=== PATIENT | male | born 1960 | race Caucasian/White ===

== ENCOUNTER → 2019-11-23 15:23 | Outpatient (BNVA) | payer MEDICARE, SELFPAY | PROVIDERS: Family Provider Family Medicine; Visit Provider Family Medicine | DX: R53.83 Other fatigue (principal); M10.9 Gout, unspecified; J01.00 Acute maxillary sinusitis, unspecified | CPT/HCPCS: 80053; 82607; 84403; 84443; 85025 ==

== ENCOUNTER → 2020-04-04 15:42 | Outpatient (BNVA) | payer MEDICARE, SELFPAY | PROVIDERS: Family Provider Family Medicine; Visit Provider Nurse Practitioner Family | DX: Z11.59 Encounter for screening for other viral diseases (principal); Z20.828 Contact with and (suspected) exposure to other viral communicable diseases; J06.9 Acute upper respiratory infection, unspecified | CPT/HCPCS: 87635 ==

== ENCOUNTER → 2020-07-09 09:35 | Outpatient (BNVA) | payer MEDICARE, SELFPAY | PROVIDERS: Family Provider Family Medicine; Visit Provider Nurse Practitioner Family | DX: Z13.6 Encounter for screening for cardiovascular disorders (principal); M10.9 Gout, unspecified; M79.671 Pain in right foot; M79.672 Pain in left foot | CPT/HCPCS: 80053; 80061; 84550; 85025; 85651; 86038; 86140; 86431 ==

== ENCOUNTER → 2020-09-07 10:09 | Outpatient (BNVA) | payer MEDICARE, SELFPAY | PROVIDERS: Family Provider Family Medicine; Visit Provider Surgery | DX: D17.0 Benign lipomatous neoplasm of skin and subcutaneous tissue of head, face and neck (principal); L98.9 Disorder of the skin and subcutaneous tissue, unspecified | CPT/HCPCS: 88304 ==

== ENCOUNTER → 2021-08-20 09:42 | Outpatient (BNVA) | payer MEDICARE, SELFPAY | PROVIDERS: Family Provider Family Medicine; PCP Family Medicine; Visit Provider Nurse Practitioner Family | DX: J20.9 Acute bronchitis, unspecified (principal) | CPT/HCPCS: 71046; 80053 ==

== ENCOUNTER → 2021-09-09 09:11 | Outpatient (BNVA) | payer MEDICARE, SELFPAY | PROVIDERS: Family Provider Family Medicine; PCP Family Medicine; Visit Provider Nurse Practitioner Family | DX: R05.9 Cough, unspecified (principal); R06.00 Dyspnea, unspecified | CPT/HCPCS: 71046 ==

== ENCOUNTER 2021-09-10 16:21 | Emergency (ER) | payer MEDICARE, SELFPAY ==
[2021-09-10 16:31] VITALS: BP 148/86; PULSE 119; RESP 18; TEMP 36.8; O2SAT 95; BMI 40.6
--- NOTE | 2021-09-10 16:42 | W.ED.SOB ---
Documented by User: Feroz Whitfield DO 09/11/21 05:11 HPI - SOB/Dyspnea General: Chief Complaint: Shortness of Breath/Dyspnea Stated Complaint: SOB, cough Time Seen by Provider: 09/10/21 16:37 Source: patient Mode of arrival: ambulatory Limitations: no limitations History of Present Illness: HPI Narrative: 61-year-old male presents emergency room with complaints of shortness of breath and cough have been going on for several weeks has been tried on various antibiotics and steroids including yesterday he was seen and given Rocephin and discharged with Levaquin. He has been complaining of a chronic cough and shortness of breath for several weeks is not really had any relief from any of these things. He is not having any chest pain at this time. Cough is moderately productive. No hemoptysis. No myalgias no diarrhea. MD elicited complaint: shortness of breath and cough Pertinent past history: COPD Onset (ago): week(s) Timing: constant Severity: mild Exacerbating factors: nothing Relieving factors: nothing Associated symptoms: Reports chest congestion and cough; Deny abdominal pain, chest pain, diaphoresis, dizziness, extremity pain, fever(s), hemoptysis, lightheadedness, myalgias, nausea, orthopnea, palpitations, paresthesias, polydipsia, polyuria, rash, sense of impending doom, syncope or vomiting Treatment prior to arrival: bronchodilator and other (Steroids and antibiotics) Review of Systems Const: Denies: fever(s) or diaphoresis ENMT: Denies: throat pain, ear or mastoid pain, nasal discharge or nasal congestion Card: Denies: chest pain, palpitations, lightheadedness, syncope or orthopnea Resp: Reports: chest congestion; Denies: hemoptysis GI: Denies: abdominal pain, nausea or vomiting : Denies: flank pain, dysuria, urinary frequency or urinary urgency Musc: Denies: extremity pain Skin/Breast: Denies: rash or pruritus Neuro: Denies: dizziness Endo: Denies: polyuria or polydipsia PFSH ED PFSH: Medical History Gout Surgical History History of angioplasty History of colonoscopy History of esophagogastroduodenoscopy (EGD) Family History Other CAD (coronary artery disease) Hyperlipidemia Hypertension Stroke Social History Smoking and tobacco status: never smoked Second hand smoke exposure: No Alcohol intake: unknown Adopted: No Lives independently: Yes Household members: spouse Housing: House Marital status: Number of children: 2 Number of grandchildren: 9 Highest education level completed: High School Graduate service: No Current occupational status: retired Pets and animals: Yes History of recent travel: No Current gender identity: Male Physical Exam Const: COMMON NORMALS: no acute distress GENERAL APPEARANCE: cooperative and comfortable ORIENTATION/CONSCIOUSNESS: Yes awake, Yes oriented to person, Yes oriented to place and Yes oriented to time HENMT: COMMON NORMALS: normocephalic, atraumatic and hearing grossly normal bilaterally HEAD & SCALP: normocephalic and atraumatic Neck/C-Spine: COMMON NORMALS: no JVD Resp: COMMON NORMALS: normal respiratory effort, No retractions, No use of accessory muscles and clear to auscultation bilaterally AUSCULTATION: clear to auscultation bilaterally Cardio: COMMON NORMALS: no JVD, regular rate, regular rhythm and No murmurs present (Cardio) RATE: regular rate RHYTHM: regular rhythm GI: COMMON NORMALS: Soft to palpation and No hepatosplenomegaly present AUSCULTATION: Yes normoactive bowel sounds PALPATION: Yes Soft to palpation, No Tenderness to palpation present (GI), No Guarding due to palpation present (GI) and Yes No hepatosplenomegaly present Extremity: COMMON NORMALS: normal to inspection, capillary refill normal, no clubbing, cyanosis or edema, no calf tenderness and no pedal edema Neuro: SENSORIUM/ORIENTATION: Yes oriented to person, Yes oriented to place and Yes oriented to time Skin: COMMON NORMALS: no rashes or lesions noted GENERAL SKIN EXAM: no rashes or lesions noted Course Vital Signs: Vital signs: Vital Signs Temperature 98.2 F 09/10/21 16:31 Pulse Rate 102 H 09/10/21 18:50 Respiratory Rate 20 H 09/10/21 18:50 Blood Pressure 145/93 09/10/21 18:50 Pulse Oximetry 94 09/10/21 18:50 MDM - SOB/Dyspnea Medical Decision Making Care signed out to Dr. Barron at change of shift. See final notes for diagnosis and disposition. Medical Records I reviewed the patient's medical records. Lab Data I reviewed the patient's lab results. : 09/10/21 17:05 09/10/21 17:35 Labs/Radiology: Radiology Impressions Chest CTA 09/10/21 16:48 IMPRESSION: 1. No large central pulmonary embolism is seen within the main pulmonary arteries and lobar branches. Evaluation beyond this point is limited due to poor opacification of the pulmonary arterial system. No acute findings. 2. Multiple thyroid nodules measuring up to 3.9 cm in size. Consider nonemergent thyroid ultrasound if not previously performed. COMMENTS: Consistent with the [employer]'s Incidental Findings Committee white paper (J Am Stacie Radiol 2015): In patients aged 35 years and older with an incidental thyroid nodule equal to or greater than 1.[address], MRI or extrathyroidal US, further evaluation with dedicated thyroid US is recommended for patients with normal life expectancy and without comorbidities. For smaller nodules without suspicious features, no further evaluation or follow up is recommended. Chest X-Ray 09/10/21 16:48 IMPRESSION: No acute chest abnormality. Laboratory Results WBC 15.2 10^3/uL (4.0-10.0) H 09/10/21 17:05 RBC 5.26 10^6/uL (4.1-5.3) 09/10/21 17:05 Hgb 14.3 g/dL (11.7-16.6) 09/10/21 17:05 Hct 45.4 % (42.0-52.0) 09/10/21 17:05 MCV 86.3 fl (80-94) 09/10/21 17:05 MCH 27.2 pg (28.0-34.0) L 09/10/21 17:05 MCHC 31.5 g/dL (30.0-36.0) 09/10/21 17:05 RDW 15.3 % (12.1-15.1) H 09/10/21 17:05 Plt Count 206 10^3/cmm (130-400) 09/10/21 17:05 MPV 10.0 fL (7.4-10.4) 09/10/21 17:05 Neut % (Auto) 84.2 % 09/10/21 17:05 Lymph % (Auto) 9.2 % 09/10/21 17:05 [place] % (Auto) 5.3 % 09/10/21 17:05 Eos % (Auto) 0.4 % 09/10/21 17:05 Baso % (Auto) 0.3 % 09/10/21 17:05 Neut # (Auto) 12.77 10^3/uL (1.8-7.7) H 09/10/21 17:05 Lymph # (Auto) 1.4 10^3/uL (0.8-4.8) 09/10/21 17:05 [place] # (Auto) 0.8 10^3/uL (0.2-0.9) 09/10/21 17:05 Eos # (Auto) 0.1 10^3/uL (0.0-0.8) 09/10/21 17:05 Baso # (Auto) 0.0 10^3/uL (0.0-0.1) 09/10/21 17:05 Nucleated RBC % (auto) 0 % 09/10/21 17:05 Nucleated RBCs # 0.0 /100WBC 09/10/21 17:05 Specimen Type Arterial 09/10/21 17:04 Sample Site Radial, left 09/10/21 17:04 ABG pH 7.43 (7.35-7.45) 09/10/21 17:04 ABG pCO2 39.5 mmHg (35-45) 09/10/21 17:04 ABG pO2 77.0 mmHg (80.0-100.0) L 09/10/21 17:04 ABG HCO3 26.3 mmol/L (22-26) H 09/10/21 17:04 ABG O2 Saturation 96.6 09/10/21 17:04 ABG Base Excess 1.9 mmol/L (-2.0-2.0) 09/10/21 17:04 Myron Test Pos 09/10/21 17:04 A-a O2 Gradient 3.1 mmHg (5-10) L 09/10/21 17:04 Hematocrit 44.5 % (42-52) 09/10/21 17:04 Hgb O2 Saturation 95.0 % (95-100) 09/10/21 17:04 Carboxyhemoglobin 0.8 %THgb (0.4-20.1) 09/10/21 17:04 Methemoglobin 0.9 % (0.4-1.5) 09/10/21 17:04 Total Hemoglobin 14.5 g/dL (14-18) 09/10/21 17:04 Sodium 141.0 mmol/L (131-143) 09/10/21 17:04 Potassium 4.2 mmol/L (3.5-5.0) 09/10/21 17:04 Glucose 200.0 mg/dL (70-115) H 09/10/21 17:04 Ionized Calcium 1.2 mmol/L (1.1-1.4) 09/10/21 17:04 O2 Delivery Device Room air 09/10/21 17:04 FiO2 21.0 % 09/10/21 17:04 Store Loss Prevention Manager ID Cak 09/10/21 17:04 Sodium 137 mmol/L (136-145) 09/10/21 17:35 Potassium 4.4 mmol/L (3.5-5.1) 09/10/21 17:35 Chloride 102 mmol/L (98-107) 09/10/21 17:35 Carbon Dioxide 21 mmol/L (22-29) L 09/10/21 17:35 Anion Gap 18.4 (5-19) 09/10/21 17:35 BUN 16 mg/dL (8-23) 09/10/21 17:35 Creatinine 0.8 mg/dL (0.7-1.2) 09/10/21 17:35 GFR Calculation 98.0 mL/min (90-130) 09/10/21 17:35 Glucose 193 mg/dL (65-115) H 09/10/21 17:35 Calculated Osmolality 290 mOsm/kg (285-295) 09/10/21 17:35 Calcium 9.5 mg/dL (8.5-10.5) 09/10/21 17:35 Total Bilirubin 0.2 mg/dL (0.15-1.2) 09/10/21 17:35 AST 12 U/L (0-40) 09/10/21 17:35 ALT 21 U/L (0-41) 09/10/21 17:35 Alkaline Phosphatase 84 IU/L (40-130) 09/10/21 17:35 Troponin T Baseline 8 ng/L (0-15) 09/10/21 17:35 Total Protein 7.3 g/dL (6.6-8.7) 09/10/21 17:35 Albumin 3.8 g/dL (3.5-5.2) 09/10/21 17:35 Globulin 3.5 g/dL (1.3-4.6) 09/10/21 17:35 Discharge Plan Discharge Patient Disposition: Home Clinical Impression: Shortness of breath, Cough syncope, Multiple thyroid nodules Condition: Stable Prescriptions: No Action albuterol sulfate [ProAir HFA] 90 mcg/actuation HFA aerosol inhaler 2 puff inhalation QID PRN (Reason: shortness of breath or wheezing) Qty: 8.5 6RF Trelegy Ellipta 200-62.5-25 mcg blister with device 1 inh inhalation DAILY Qty: 60 0RF fexofenadine-pseudoephedrine [Denisha-D 12 Hour] 60-120 mg tablet extended release 12 hr 1 tab PO Q12H PRN (Reason: allergy symptoms) Qty: 20 0RF penicillin V potassium 500 mg tablet 500 mg PO TID 10 Days Qty: 30 0RF Mucinex Fast-Max DM Max 5-100 mg/5 mL liquid 10 ml PO Q6H PRN (Reason: cough) Qty: 200 1RF tadalafil [Cialis] 5 mg tablet 5 mg PO DAILY Qty: 30 4RF levofloxacin 500 mg tablet 500 mg PO DAILY 10 Days Qty: 10 0RF albuterol sulfate 2.5 mg /3 mL (0.083 %) solution for nebulization 2.5 mg inhalation Q4H PRN (Reason: shortness of breath or wheezing) Qty: 180 0RF cyclobenzaprine 10 mg tablet 10 mg PO DAILY PRN (Reason: Pain) 0RF Vitamin D2 10 mcg (400 unit) Tablet 10 mcg PO DAILY 0RF Aspir-81 81 mg Tablet,Delayed Release (Dr/Ec) 81 mg PO DAILY 0RF meclizine 25 mg tablet 25 mg PO TID 0RF cefdinir 300 mg capsule 300 mg PO BID 0RF Tart Nuno 58-102-86-75-20 mg Capsule 1 cap PO DAILY 0RF Discharge Orders: Discharge ED (Routine); Ordered 09/10/21 Ordered By: Sameer Barron Referrals: Evelyne Baum MD [Family Provider] - Pat Nicolas MD [Primary Care Provider] - Discharge Diet: Usual diet Discharge Activity: Resume usual activity Patient Instructions: COPD (Chronic Obstructive Pulmonary Disease) (ED), Thyroid Nodules (ED), Shortness of Breath (ED) Activity Restrictions/Additional Instructions: Thank you for visiting the emergency department. You were seen and evaluated for shortness of breath and cough. The exact cause of your symptoms is unclear, likely related to underlying lung disease. Please continue your steroids and previously prescribed antibiotics as well as inhaled therapies. I will message case management for assistance in scheduling with pulmonology. Incidentally you were noted to have Multiple thyroid nodules measuring up to 3.9 cm in size. Consider nonemergent thyroid ultrasound if not previously performed. This can be arranged by your primary care provider. Please follow-up with your primary care provider. Please return to the emergency department for worsening symptoms, oxygen saturation less than 90%, or anything else that you are concerned about and feel needs emergency department evaluation. Sign Out Sign Out Data: Patient Sign Out occurred on 09/10/21 at 18:37. Patient's care was discussed, and care was transferred from to Sameer Barron MD. Post-Handoff Eval: Patient care handoff received from the Dr. Whitfield pending completion of ED evaluation. Labs notable for leukocytosis, somewhat difficult to interpret in the context of steroid use. Mildly decreased PO2 on ABG. Metabolic panel without acute derangement to explain patient's symptoms. Troponin is negative with greater than 6 hours of symptoms. CTA with somewhat limited exam however no large or lobar PE. Incidental thyroid nodules discussed. Results of ED evaluation were discussed with the patient. He feels improved. Plan to continue with previously prescribed antibiotics and steroid regimen. Patient happy with plan to refer for pulmonology evaluation. Patient comfortable with discharge and discharged in satisfactory condition. Sameer Barron MD Emergency Medicine Coding Level of Care Code ED Operations Vice President for Chg Fwd Exam Comprehensive
--- NOTE | 2021-09-10 16:48 | XR_ITS ---
WS: [id number] XR chest 1V portable [id number] REASON FOR EXAM: dyspnea/cough FINDINGS: The heart and mediastinum are within normal limits. No active pulmonary parenchymal or pleural disease is identified. Bony thorax demonstrates multiple old healed left rib fractures with no other significant abnormality . XR/XR chest 1V portable [id number] IMPRESSION: No acute chest abnormality.
--- NOTE | 2021-09-10 16:48 | CTR_ITS ---
PROCEDURE INFORMATION: Exam: CTA Chest With Contrast Exam date and time: 09/10/2021 4:48 PM Age: 61 years old Clinical indication: Patient HX: Tachycardia and dyspnea; Additional info: Tachycardia dyspnea TECHNIQUE: Imaging protocol: Computed tomographic angiography of the chest with contrast. 3D rendering (Not supervised by radiologist): MIP and/or 3D reconstructed images were created by the technologist. Radiation optimization: All CT scans at this facility use at least one of these dose optimization techniques: automated exposure control; mA and/or kV adjustment per patient size (includes targeted exams where dose is matched to clinical indication); or iterative reconstruction. Contrast material: OMNI 350; Contrast volume: 95 ml; Contrast route: INTRAVENOUS (IV); COMPARISON: CT chest w con* [id number] 02/05/2015 10:44 AM RADIATION DOSE METRICS: Total DLP (mGy-cm): 605.77 FINDINGS: Pulmonary arteries: Poor opacification of the pulmonary arterial system. No large central pulmonary embolism is seen within the main pulmonary arteries and lobar branches. Evaluation beyond this point is limited. Aorta: No aortic aneurysm. No aortic dissection. Thyroid: Multiple thyroid nodules measuring up to 3.9 cm in the posterior/inferior right thyroid lobe series 3 image 8. Lungs: No consolidation. No masses. Pleural spaces: No pneumothorax. No pleural effusion. Heart: No cardiomegaly. No pericardial effusion. Lymph nodes: No enlarged lymph nodes. Bones/joints: Multiple old callused left rib fractures noted. No acute fracture. Soft tissues: Unremarkable. CT/CT angio chest PE protcl [id number] IMPRESSION: 1. No large central pulmonary embolism is seen within the main pulmonary arteries and lobar branches. Evaluation beyond this point is limited due to poor opacification of the pulmonary arterial system. No acute findings. 2. Multiple thyroid nodules measuring up to 3.9 cm in size. Consider nonemergent thyroid ultrasound if not previously performed. COMMENTS: Consistent with the [employer]'s Incidental Findings Committee white paper (J Am Stacie Radiol 2015): In patients aged 35 years and older with an incidental thyroid nodule equal to or greater than 1.[address], MRI or extrathyroidal US, further evaluation with dedicated thyroid US is recommended for patients with normal life expectancy and without comorbidities. For smaller nodules without suspicious features, no further evaluation or follow up is recommended.
--- NOTE | 2021-09-10 16:49 | ECG_ITS ---
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 Measurements Intervals [place] Rate: 120 P: -3 VT: 153 QRS: -57 QRSD: 145 T: 41 QT: 341 QTc: 483 Interpretive Statements SINUS TACHYCARDIA LEFT AXIS DEVIATION [QRS AXIS < -30] LEFT BUNDLE BRANCH BLOCK [120+ ms QRS DURATION, 80+ ms Q/S IN V1/V2, 85+ ms R IN I/aVL/V5/V6] Compared to ECG 02/05/2015 08:41:06 Left bundle-branch block now present Intraventricular conduction delay no longer present Myocardial infarct finding no longer present Electronically Signed On 09-10-2021 22:22:54 CDT by Naman Lynn M.D. [id number]
[2021-09-10 17:15] LABS: ABG PCO2 39.5 mmHg (35-45); ABG PH Result 7.43 (7.35-7.45); Alveolar-Arterial Oxygen Gradi 3.1 mmHg (5-10); Arterial Blood Gas Hematocrit 44.5 % (42-52); Base Excess ABG 1.9 mmol/L (-2.0-2.0); Blood Gas Allen Test Pos; Blood Gas Operator Identificat CAK; Blood Gas Sample Site Radial, left; Blood Gas Sample Type Arterial; Carboxyhemoglobin 0.8 %THgb (0.4-20.1); HCO3 ABG 26.3 mmol/L (22-26); Ionized Calcium Level - ABG 1.2 mmol/L (1.1-1.4); Methemoglobin 0.9 % (0.4-1.5); Oxygen Device ROOM AIR; Oxygen Saturation ABG 96.6; Potassium Level - ABG 4.2 mmol/L (3.5-5.0); Total Hemoglobin 14.5 g/dL (14-18)
[2021-09-10 17:16] LABS: Basophils % 0.3 %; Eosinophils # 0.1 10^3/uL (0.0-0.8); Eosinophils % 0.4 %; Hematocrit 45.4 % (42.0-52.0); Hemoglobin 14.3 g/dL (11.7-16.6); Lymphocytes # 1.4 10^3/uL (0.8-4.8); Lymphocytes % 9.2 %; Mean Corpuscular HGB Conc 31.5 g/dL (30.0-36.0); Mean Corpuscular Hemoglobin 27.2 pg (28.0-34.0); Mean Corpuscular Volume 86.3 fl (80-94); Monocytes # 0.8 10^3/uL (0.2-0.9); Monocytes % 5.3 %; Neutrophils # 12.77 10^3/uL (1.8-7.7); Neutrophils % 84.2 %; Nucleated Red Blood Cells % 0 %; Platelet Count 206 10^3/cmm (130-400); Red Blood Count 5.26 10^6/uL (4.1-5.3); Red Cell Distribution Width 15.3 % (12.1-15.1); White Blood Count 15.2 10^3/uL (4.0-10.0)
[2021-09-10 17:25] VITALS: BP 145/93; PULSE 112; RESP 18; O2SAT 95
[2021-09-10] MEDS: iohexol 350 mg/mL 100 mL Btl IV (17:40)
[2021-09-10 18:16] LABS: Troponin(5th) Baseline 8 ng/L (0-15)
[2021-09-10 18:28] LABS: Alanine Aminotransferase 21 U/L (0-41); Albumin Level 3.8 g/dL (3.5-5.2); Alkaline Phosphatase 84 IU/L (40-130); Anion Gap 18.4 (5-19); Aspartate Amino Transferase 12 U/L (0-40); Blood Urea Nitrogen 16 mg/dL (8-23); Calcium 9.5 mg/dL (8.5-10.5); Carbon Dioxide 21 mmol/L (22-29); Chloride 102 mmol/L (98-107); Globulin 3.5 g/dL (1.3-4.6); Glucose 193 mg/dL (65-115); Osmolality Calculated 290 mOsm/kg (285-295); Potassium 4.4 mmol/L (3.5-5.1); Sodium 137 mmol/L (136-145); Total Bilirubin 0.2 mg/dL (0.15-1.2); Total Protein 7.3 g/dL (6.6-8.7)
--- NOTE | 2021-09-10 18:49 | ECG_ITS ---
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 Measurements Intervals [place] Rate: 105 P: DE: QRS: -63 QRSD: 149 T: 28 QT: 375 QTc: 497 Interpretive Statements SINUS TACHYCARDIA Compared to ECG 09/10/2021 17:03:27 Intraventricular conduction delay now present Left bundle-branch block no longer present Electronically Signed On 09-11-2021 20:24:45 CDT by Naman Lynn M.D. [id number]
[2021-09-10 18:50] VITALS: BP 145/93; PULSE 102; RESP 20; O2SAT 94
--- NOTE | 2021-09-10 19:02 | PC.NURSE ---
patient report received, respirations even equal, speech clear. NAD
== END 2021-09-10 19:34 | disposition home or self-care (01) ==
PROVIDERS: Family Medicine; Emergency Provider Emergency Medicine; Family Provider Family Medicine; PCP Family Medicine
DX: R06.02 Shortness of breath (principal); R05.9 Cough, unspecified; R55 Syncope and collapse; E04.2 Nontoxic multinodular goiter; Z79.82 Long term (current) use of aspirin
CPT/HCPCS: 36600; 71045; 71275; 80051; 80053; 82330; 82805; 84484; 85025; 93005; 99284; Q9967

== ENCOUNTER 2021-10-23 12:11 | Outpatient (CLI) | payer MEDICARE, SELFPAY ==
--- NOTE | 2021-10-23 12:45 | US_ITS ---
WS: [id number] THYROID ULTRASOUND HISTORY: Multiple thyroid nodules measuring up to 3.9 cm in size. COMPARISON: None available. Right lobe: 3.7 cm x 2.9 cm x 6.0 cm (w x ap x l). Volume: 34.2 cm3. Enlarged very heterogeneous thyroid. Very lobulated heterogeneous gland. It is very difficult to make out discrete nodules. There are probably several large nodules which overlap and the borders become indistinct. None of these nodules contain increased vascularity. There is one nodule within the mid g land which is mildly hypoechoic to the remaining gland. This nodule measures 2.0 x 2.0 x 3.1 cm. Ther e is a small cyst with shadowing in the superior gland. Left lobe: 2.4 cm x 2.9 cm x 5.3 cm (w x ap x l). Volume: 18.8 cm3. Enlarged LEFT thyroid which is heterogeneous. There is a hypoechoic nodule with scattered areas of in creased echogenicity centrally. This nodule does contain a few foci of echogenic material. This nodul e measures 2.4 x 2.1 x 2.9 cm. There is minimal increased vascularity. Cystic and solid components. Isthmus: 0.9 cm. Enlarged isthmus. US/US thyroid [id number] IMPRESSION: 1. Enlarged bilateral multinodular goiter. It would be difficult to determine one nodule being more concerning than another. The dominant nodule in the LEFT thyroid is slightly more hypoechoic and a few echogenic foci. This could underg o fine-needle aspiration. The entire RIGHT thyroid lobe is nodular. 2. Enlarged isthmus.
== END 2021-10-23 12:12 | disposition home or self-care (01) ==
PROVIDERS: PCP Family Medicine; Visit Provider Nurse Practitioner Family
DX: R91.1 Solitary pulmonary nodule (principal)
CPT/HCPCS: 76536

== ENCOUNTER → 2021-11-06 08:37 | Outpatient (BNVA) | payer MEDICARE, SELFPAY | PROVIDERS: PCP Family Medicine; Visit Provider Internal Medicine Pulmonary Disease | DX: E04.1 Nontoxic single thyroid nodule (principal); R06.02 Shortness of breath; R05.9 Cough, unspecified; K21.9 Gastro-esophageal reflux disease without esophagitis; R06.81 Apnea, not elsewhere classified; I10 Essential (primary) hypertension | CPT/HCPCS: 36415; 82785; 83880; 84439; 84443; 84481; 86003; 99204 ==

== ENCOUNTER → 2021-12-02 07:48 | Outpatient (BNVA) | payer MEDICARE, SELFPAY | PROVIDERS: PCP Family Medicine; Referring Provider Internal Medicine Pulmonary Disease; Visit Provider Internal Medicine | DX: E04.9 Nontoxic goiter, unspecified (principal); E04.2 Nontoxic multinodular goiter; R13.10 Dysphagia, unspecified; R06.02 Shortness of breath | CPT/HCPCS: 99204 ==

== ENCOUNTER → 2021-12-03 14:42 | Outpatient (BNVA) | payer MEDICARE, SELFPAY | PROVIDERS: PCP Family Medicine; Visit Provider Otolaryngology | DX: E04.2 Nontoxic multinodular goiter (principal); R13.10 Dysphagia, unspecified; E66.01 Morbid (severe) obesity due to excess calories; Z68.41 Body mass index [BMI] 40.0-44.9, adult | CPT/HCPCS: 31575; 99204 ==

== ENCOUNTER 2022-01-03 07:30 | Outpatient (CLI) | payer MEDICARE, SELFPAY ==
--- NOTE | 2022-01-03 08:30 | US_ITS ---
WS: [id number] ULTRASOUND-GUIDED LEFT THYROID NODULE FNA HISTORY: thyroid nodule, LEFT thyroid nodule is targeted. Procedure, risks, and complications were explained to the patient. Consent has been obtained. Comparison: Prior imaging study 10/23/2021 reviewed. The skin is cleansed with ChloraPrep and anesthetized with 1% buffered lidocaine. FNA performed with 25 gauge needles. staff technologist is present to fix slides. Difficult biopsy due to patien t's body habitus and deep position of the nodule. US/US biopsy/FNA thyroid [id number] IMPRESSION: Uncomplicated FNA of a LEFT thyroid nodule. Final pathology results pending.
== END 2022-01-03 07:31 | disposition home or self-care (01) ==
PROVIDERS: PCP Family Medicine; Visit Provider Otolaryngology
DX: E04.2 Nontoxic multinodular goiter (principal)
CPT/HCPCS: 10005; 88173; 88305

== ENCOUNTER 2022-01-23 07:20 | Outpatient (CLI) | payer MEDICARE, SELFPAY ==
--- NOTE | 2022-01-23 13:57 | PFTS_ITS ---
Date of Study:01/23/22 Date of Dictation: 01/24/2022 MECHANICS: Postbronchodilator forced vital capacity (FVC) is reduced. Postbronchodilator forced expiratory volume in one second (FEV1) is mildly reduced. FEV1/FVC is reduced. There is significant bronchodilator response. FLOW VOLUME LOOP: Prebronchodilator loop showed sloping of expiratory limb suggestive of airflow obstruction which got corrected after bronchodilation . LUNG VOLUMES: Total lung capacity (TLC) is reduced. Residual volume (RV) is normal. DIFFUSING CAPACITY FOR CARBON MONOXIDE: Normal . INTERPRETATION: The overall pulmonary function test showed mixed pattern with severe airflow obstruction on prebronchodilator spirometry which essentially normalized after bronchodilation and lung volumes showing mild restriction. There is significant bronchodilator response. Gas transfer is normal. Constellation of findings consistent with reversible obstructive ventilatory disease like asthma. Clinical correlation recommended. MTDD
== END 2022-01-23 07:21 | disposition home or self-care (01) ==
LOC: RT 07:21
PROVIDERS: PCP Family Medicine; Visit Provider Internal Medicine Pulmonary Disease
DX: R06.02 Shortness of breath (principal)
CPT/HCPCS: 94060; 94618; 94726; 94729; J7614

== ENCOUNTER → 2022-02-03 10:14 | Outpatient (BNVA) | payer MEDICARE, SELFPAY | PROVIDERS: PCP Family Medicine; Visit Provider Internal Medicine | DX: E04.9 Nontoxic goiter, unspecified (principal); E04.2 Nontoxic multinodular goiter; R13.10 Dysphagia, unspecified; R06.02 Shortness of breath | CPT/HCPCS: 99214 ==

== ENCOUNTER → 2022-02-10 13:34 | Outpatient (BNVA) | payer MEDICARE, SELFPAY | PROVIDERS: PCP Family Medicine; Visit Provider Otolaryngology | DX: E04.9 Nontoxic goiter, unspecified (principal); E04.2 Nontoxic multinodular goiter | CPT/HCPCS: 99213 ==

== ENCOUNTER → 2022-03-10 09:59 | Outpatient (BNVA) | payer MEDICARE, SELFPAY | PROVIDERS: PCP Family Medicine; Visit Provider Nurse Practitioner Family | DX: J82.83 Eosinophilic asthma (principal); I10 Essential (primary) hypertension; K21.9 Gastro-esophageal reflux disease without esophagitis; R06.81 Apnea, not elsewhere classified; J44.9 Chronic obstructive pulmonary disease, unspecified; R73.9 Hyperglycemia, unspecified; E04.1 Nontoxic single thyroid nodule; E66.01 Morbid (severe) obesity due to excess calories; Z68.41 Body mass index [BMI] 40.0-44.9, adult; H10.12 Acute atopic conjunctivitis, left eye; F52.21 Male erectile disorder; E04.2 Nontoxic multinodular goiter | CPT/HCPCS: 80053; 80061; 83036 ==

== ENCOUNTER → 2022-04-01 09:27 | Outpatient (BNVA) | payer MEDICARE, SELFPAY | PROVIDERS: PCP Family Medicine; Visit Provider Otolaryngology | DX: E04.2 Nontoxic multinodular goiter (principal); E04.9 Nontoxic goiter, unspecified | CPT/HCPCS: 99213; 99214 ==

== ENCOUNTER 2022-04-03 06:52 | Day surgery (SDC) | payer MEDICARE, SELFPAY ==
[2022-04-03] VITALS (12 sets, daily range): BP systolic 145–179; BP diastolic 73–103; PULSE 74–88; RESP 17–24; TEMP 36.2–36.6; O2SAT 95–99
[2022-04-03] MEDS: sodium chloride 0.9% 1,000 ML 30 ML IV (07:35)
[2022-04-03] MEDS: levalbuterol 1.25 mg/3 mL Neb INHALATION (08:39)
--- NOTE | 2022-04-03 08:41 | ANES.PREANE2 ---
Pre-Anesthetic Assessment Height/Weight: Height 1.83 m Weight 142.428 kg Temp Pulse Resp BP Pulse Ox O2 Del Method 97.9 F 84 18 163/103 97 04/03/22 07:16 04/03/22 07:16 04/03/22 07:16 04/03/22 07:16 04/03/22 07:16 04/03/22 07:18 Preop Diagnosis: Multinodular goiter Operation Date: 04/03/22 08:35 Proposed Procedures p Total Thyroidectomy 19253,E04.2(Not Applicable) - Duke Reed MD Familial anesthetic complications: none Was Beta Vincent taken within 24 hours: N/A Was Clonidine taken within 24 hours: N/A Last intake: Intake Last Liquid Date 04/02/22 Last Liquid Time 18:30 Last Solid Date 04/02/22 Last Solid Time 18:30 Social No alcohol and No tobacco Exam alert, oriented x 3, clear to auscultation bilaterally and regular rate & rhythm Airway Cervical ROM: within normal limits Mallampati: Class II Dentition: chipped Pulmonary Asthma and Chronic Obstructive Pulmonary Disease CV/HEM Hypertension GI Gastroesophageal Reflux Disease Metabolic Morbid Obesity thyroid nodule Anesthetic Plan ASA status: 3 Anesthesia: General Medications/Allergies Home Medications Medication Instructions Recorded Confirmed Last Taken Type aspirin 81 mg tablet,delayed 81 mg PO DAILY 09/10/21 04/03/22 03/19/22 History release cyclobenzaprine 10 mg tablet 10 mg PO DAILY PRN Pain 09/10/21 04/03/22 03/11/22 History vit C 30 mg-s.nuno 250 mg-celery 1 cap PO DAILY 09/10/21 04/03/22 04/02/22 History seed 75 mg-grape seed extrt capsule (Tart Nuno) fluticasone fur. 200 mcg-umeclid 1 inh inhalation DAILY #60 ea 09/16/21 04/03/22 03/11/22 Rx 62.5 mcg-vilant 25 mcg inhalat.powder (Trelegy Ellipta) losartan 25 mg tablet 25 mg PO DAILY #30 tabs 11/06/21 04/03/22 03/10/22 Rx pantoprazole 40 mg tablet,delayed 40 mg PO DAILY #30 tabs 11/06/21 04/03/22 03/19/22 Rx release allopurinol 100 mg tablet 100 mg PO BID 12/02/21 04/03/22 04/02/22 History fluticasone propionate 50 1 spray intranasal DAILY #16 grams 01/01/22 04/03/22 03/10/22 Rx mcg/actuation nasal spray,suspension (Flonase Allergy Relief) montelukast 10 mg tablet 10 mg PO DAILY #30 tabs 01/01/22 04/03/22 03/25/22 Rx (Singulair) tadalafil 10 mg tablet 10 mg PO DAILY 90 days #90 tabs 03/10/22 04/03/22 03/10/22 Rx Allergies Allergy/AdvReac Type Severity Reaction Status Date / Time No Known Allergies Allergy Verified 04/03/22 07:09 Current Medications Generic Name Dose Route Start Last Admin Trade Name Freq PRN Reason Stop Dose Admin Sodium Chloride 1,000 mls @ 30 mls/hr 04/03/22 07:15 04/03/22 07:35 Sodium Chloride 0.9% IV 04/04/22 07:14 30 mls/hr .Q24H ANDREWS Administration PFSH Anesthesia Medical History Gout Surgical History History of angioplasty History of colonoscopy History of esophagogastroduodenoscopy (EGD) Family History Other CAD (coronary artery disease) Hyperlipidemia Hypertension Stroke Social History Smoking and tobacco status: never smoked Second hand smoke exposure: No Alcohol intake: unknown Adopted: No Lives independently: Yes Household members: spouse Housing: House Marital status: Number of children: 2 Number of grandchildren: 9 Highest education level completed: High School Graduate service: No Current occupational status: retired Pets and animals: Yes History of recent travel: No Current gender identity: Male Data Anesthesia Cardiac Studies: No Data to Display
[2022-04-03] MEDS: ceFAZolin 3,000 MG in sodium chloride 0.9% (100 ml) 100 ML 200 MG IV (08:58)
--- NOTE | 2022-04-03 08:58 | W.PM.OPSUD ---
Surgery/Procedure H&P Update DATE OF PROCEDURE: April 03, 2022 DATE H&P PERFORMED: 04/01/22 H&P UPDATE INFORMATION: I have reviewed H&P completed within last 30 days, I have examined patient prior to procedure and No changes to prior documentation CHANGES TO PREVIOUS DOCUMENTATION: No changes PREOP DIAGNOSIS: Multinodular goiter PRIMARY INDICATION FOR PROCEDURE: Multinodular goiter with compression symptoms PLANNED PROCEDURE: Operation Date: 04/03/22 08:35 Proposed Procedures p Total Thyroidectomy 82610,E04.2(Not Applicable) - Duke Reed MD
--- NOTE | 2022-04-03 11:22 | PM.OP ---
Operative Report Date of procedure: April 03, 2022 Pre-op diagnosis: Preop Diagnosis Multinodular goiter Post-op diagnosis: Multinodular goiter Post-op findings: Same Procedure done: Total thyroidectomy Implants: Quarter inch Jose drain Specimens removed/disposition: Bilateral thyroid lobes with isthmus Pathology: Same Surgeon: Duke Rede MD Anesthesia: General and Local Estimated blood loss: 25 mL Complications: No complications encountered Findings: Patient had multilobulated nodules both thyroid glands. Brief History: 61-year-old male patient with hypertrophic multinodular goiter with compression symptoms. Needle aspiration revealed benign colloid nodule. Thyroid being removed because of the compression symptoms. Procedure risks and complications were explained in detail. Informed consent was granted. Risk discussed included bleeding infection numbness scarring swelling bruising recurrence need for additional treatment potential weakness or paralysis of 1 or both recurrent laryngeal nerves and therefore vocal cords which could cause breathy voice weak voice gravelly voice which could be temporary or permanent. Patient may need to be on Synthroid supplementation for life and may need to be on calcium supplementation for life. Consent was granted and witnessed. Procedure: Description of procedure: The patient was placed on the operating table in the supine position. Adequate general endotracheal tube anesthesia was obtained. He was given Ancef IV for prophylaxis. He was repositioned into a semirecumbent position. Neck roll was placed under the shoulders and neck as he had a very stiff neck. Electric razor was used to remove hair from the operative site. Alcohol was used to cleanse the lower neck skin area where the incision was going to be placed. Then a total of 5.1 mL of 2% Xylocaine with 1 100,000 epinephrine was used to infiltrate the incision line. The patient was then prepped and draped in usual fashion. A marking pen was used to outline the sternal notch and the notch of the thyroid cartilage. The incision line was drawn and crosshatch's were made. The cut mode of the Bovie on low power was used to make the skin incision carrying it down to the subcutaneous fat layer. Then the coagulation mode of the Bovie was used to cut through the fat and down through the medial aspects of both platysma muscles. Then careful dissection was carried out and a central midline vertical pattern finding the median raphae of the strap muscles and dissecting down to the actual thyroid gland and isthmus. Then the strap muscles were dissected off of the gland bilaterally. The right gland was addressed first from a combination of inferior lateral and superior directions. As the dissection proceeded the vascular supply to the parathyroid glands was identified and preserved. The recurrent nerve was identified in the tracheoesophageal groove and followed up to its insertion into the larynx. Dissection was then carried around to the opposite side where an identical procedure was accomplished. The gland along with the isthmus was resected in 1 specimen. The area was irrigated with sterile water. No active bleeding was encountered but the area adjacent to the laryngeal insertion area of the recurrent nerves showed a little ooze and rather than coagulating I felt Surgicel application was best for that area. Then the quarter inch Jose drain was placed at the depths of the incision and defect and the incision was closed with interrupted 4-0 chromic closing the platysma and deep subcutaneous layer and then skin demetria were used to close the skin. The area was cleansed Neosporin ointment was applied and then a sterile pressure dressing was applied. Patient was then returned to anesthesia for wake-up and extubation. The patient tolerated the procedure well had an estimated blood loss of 25 mL or less and arrived in recovery in stable condition.
--- NOTE | 2022-04-03 11:49 | SUR.PHASEI ---
1130 PT TO PACU 5 PT AWAKES TO VOICE, GOOD RESP EFFORT, BP ELEVATED MONITOR SR IWTH NO ECTOPY, PT HOB AT 40 DEGREES, PT UP IN BED TO COMFORT, IV TO LT HAND #20 WITH NS 250ML UP AT KVO RATE PER GRAVITY. ID BRACELET TO RT WRIST , PT ID'D WITH 2 IDENTIFIERS, WARM BLANKETS TO PT, PT WITH LARGE KERLIX DRESSING AROUND NECK LOOSELY, LAWRENCE DRAIN TO ANTERIOR NECK INCISION WITH RICARDO D/I , PT HAS BILAT SCDS ON AND WORKING, PT AWAKES AND VERBALLY DENIES PAIN AT THIS TIME. 1145 DR LOJA AT BEDSIDE, PT VOICE ASSESSED BY DR GANT VERBALIZED APPROPRIATELY VSS UNCHANGED DRESSING TO NECK D/I 1156 PT OK TO HAVE ICE CHIPS IN PACU PER DR LOJA AT BEDSIDE, PT TAKING ICE CHIPS WITHOUT DIFFICULTY.
[2022-04-03] MEDS: oxyCODONE-APAP 5-325 mg Tablet 1 TAB PO (12:22)
--- NOTE | 2022-04-03 14:46 | ANE.PACU2 ---
Inpatient post-anesthesia follow up: Airway intact: Yes Vital signs: Temperature 97.7 F Pulse Rate 74 Respiratory Rate 18 Blood Pressure 168/88 Pulse Oximetry 95 Oxygen Delivery Me thod Room Air Oxygen Flow Rate 2 Fraction of Inspir ed Oxygen Hydration adequate: Yes Nausea and vomiting: No Pain level: 2 Mental status: Baseline
== END 2022-04-03 12:45 | disposition home or self-care (01) ==
PROVIDERS: PCP Family Medicine; Visit Provider Otolaryngology
PROC: (CPT 60240; principal; 2022-04-03 08:25)
DX: E04.2 Nontoxic multinodular goiter (principal); J44.9 Chronic obstructive pulmonary disease, unspecified; I10 Essential (primary) hypertension; K21.9 Gastro-esophageal reflux disease without esophagitis; E66.01 Morbid (severe) obesity due to excess calories; Z68.41 Body mass index [BMI] 40.0-44.9, adult; Z79.82 Long term (current) use of aspirin
CPT/HCPCS: 60240; 88307; 94640; J0690; J1100; J1170; J2405; J2704; J2710; J3010; J3490; J7030; J7614

== ENCOUNTER → 2022-04-04 10:42 | Outpatient (BNVA) | payer MEDICARE, SELFPAY | PROVIDERS: PCP Family Medicine; Visit Provider Otolaryngology | DX: E89.0 Postprocedural hypothyroidism (principal); E04.2 Nontoxic multinodular goiter | CPT/HCPCS: 99024 ==

== ENCOUNTER → 2022-04-07 08:36 | Outpatient (BNVA) | payer MEDICARE, SELFPAY | PROVIDERS: PCP Family Medicine; Visit Provider Otolaryngology | DX: E89.0 Postprocedural hypothyroidism (principal) | CPT/HCPCS: 99024 ==

== ENCOUNTER 2022-04-11 08:40 | Outpatient (CLI) | payer MEDICARE, SELFPAY ==
[2022-04-11 10:38] LABS: Free T4 Free Thyroxine 1.09 ng/dL (0.82-1.77); Thyroid Stimulating Hormone 1.07 uIU/mL (0.27-4.20)
[2022-04-11 10:42] LABS: Calcium 9.1 mg/dL (8.5-10.5)
[2022-04-11 10:50] LABS: Parathyroid Hormone 51.1 pg/mL (15-65)
== END 2022-04-11 08:41 | disposition home or self-care (01) ==
PROVIDERS: PCP Family Medicine; Visit Provider Internal Medicine
DX: E89.0 Postprocedural hypothyroidism (principal); E04.2 Nontoxic multinodular goiter; R53.83 Other fatigue; R13.10 Dysphagia, unspecified; R06.02 Shortness of breath
CPT/HCPCS: 36415; 82310; 83970; 84439; 84443; 87070; 99024; 99214

== ENCOUNTER → 2022-04-14 08:38 | Outpatient (BNVA) | payer MEDICARE, SELFPAY | PROVIDERS: PCP Family Medicine; Visit Provider Otolaryngology | DX: Z48.89 Encounter for other specified surgical aftercare (principal); E89.0 Postprocedural hypothyroidism | CPT/HCPCS: 99024 ==

== ENCOUNTER → 2022-04-22 13:49 | Outpatient (BNVA) | payer MEDICARE, SELFPAY | PROVIDERS: PCP Family Medicine; Visit Provider Otolaryngology | DX: E89.0 Postprocedural hypothyroidism (principal); Z48.89 Encounter for other specified surgical aftercare | CPT/HCPCS: 10160; 87070; 99024 ==

== ENCOUNTER → 2022-04-25 09:35 | Outpatient (BNVA) | payer MEDICARE, SELFPAY | PROVIDERS: PCP Family Medicine; Visit Provider Otolaryngology | DX: Z48.89 Encounter for other specified surgical aftercare (principal); E89.0 Postprocedural hypothyroidism | CPT/HCPCS: 99024 ==

== ENCOUNTER → 2022-04-28 14:21 | Outpatient (BNVA) | payer MEDICARE, SELFPAY | PROVIDERS: PCP Family Medicine; Visit Provider Otolaryngology | DX: Z48.89 Encounter for other specified surgical aftercare (principal) | CPT/HCPCS: 99024 ==

== ENCOUNTER → 2022-04-30 13:25 | Outpatient (BNVA) | payer MEDICARE, SELFPAY | PROVIDERS: PCP Family Medicine; Visit Provider Otolaryngology | DX: Z48.89 Encounter for other specified surgical aftercare (principal); E89.0 Postprocedural hypothyroidism | CPT/HCPCS: 99024 ==

== ENCOUNTER → 2022-05-02 11:48 | Outpatient (BNVA) | payer MEDICARE, SELFPAY | PROVIDERS: PCP Family Medicine; Visit Provider Otolaryngology | DX: Z48.89 Encounter for other specified surgical aftercare (principal); E89.0 Postprocedural hypothyroidism | CPT/HCPCS: 99024 ==

== ENCOUNTER → 2022-05-05 08:23 | Outpatient (BNVA) | payer MEDICARE, SELFPAY | PROVIDERS: PCP Family Medicine; Visit Provider Otolaryngology | DX: Z48.89 Encounter for other specified surgical aftercare (principal) | CPT/HCPCS: 99024 ==

== ENCOUNTER 2022-05-14 09:58 | Outpatient (CLI) | payer MEDICARE, SELFPAY ==
[2022-05-14 11:43] LABS: Calcium 9.2 mg/dL (8.5-10.5); Parathyroid Hormone 67.2 pg/mL (15-65)
[2022-05-14 11:44] LABS: Thyroid Stimulating Hormone 0.36 uIU/mL (0.27-4.20)
== END 2022-05-14 09:59 | disposition home or self-care (01) ==
LOC: LAB 10:00
PROVIDERS: PCP Family Medicine; Visit Provider Internal Medicine
DX: R53.83 Other fatigue (principal); E89.0 Postprocedural hypothyroidism
CPT/HCPCS: 36415; 82310; 83970; 84439; 84443

== ENCOUNTER → 2022-05-15 08:40 | Outpatient (BNVA) | payer MEDICARE, SELFPAY | PROVIDERS: PCP Family Medicine; Visit Provider Internal Medicine | DX: R53.83 Other fatigue (principal); E89.0 Postprocedural hypothyroidism; E34.9 Endocrine disorder, unspecified | CPT/HCPCS: 99214 ==

== ENCOUNTER → 2022-07-11 08:10 | Outpatient (BNVA) | payer MEDICARE, SELFPAY | PROVIDERS: PCP Family Medicine; Visit Provider Otolaryngology | DX: Z48.89 Encounter for other specified surgical aftercare (principal); Z79.890 Hormone replacement therapy | CPT/HCPCS: 99024 ==

== ENCOUNTER → 2022-11-10 09:12 | Outpatient (BNVA) | payer MEDICARE, SELFPAY | PROVIDERS: PCP Family Medicine; Visit Provider Nurse Practitioner Family | DX: I10 Essential (primary) hypertension (principal); K21.9 Gastro-esophageal reflux disease without esophagitis; R06.81 Apnea, not elsewhere classified; M10.9 Gout, unspecified | CPT/HCPCS: 80053; 80061; 82310; 83970; 84439; 84443; 84550; G0103 ==

== ENCOUNTER → 2022-11-12 08:21 | Outpatient (BNVA) | payer MEDICARE, SELFPAY | PROVIDERS: PCP Family Medicine; Visit Provider Internal Medicine | DX: E89.0 Postprocedural hypothyroidism (principal); E34.9 Endocrine disorder, unspecified; E83.51 Hypocalcemia; Z79.890 Hormone replacement therapy | CPT/HCPCS: 36415; 82306; 99214 ==

== ENCOUNTER → 2023-01-13 08:37 | Outpatient (BNVA) | payer MEDICARE, SELFPAY | PROVIDERS: PCP Family Medicine; Visit Provider Internal Medicine | DX: E89.0 Postprocedural hypothyroidism (principal); E34.9 Endocrine disorder, unspecified; R73.03 Prediabetes; I10 Essential (primary) hypertension | CPT/HCPCS: 80053; 80061; 82306; 82310; 83036; 83970; 84439; 84443 ==

== ENCOUNTER → 2023-01-22 13:48 | Outpatient (BNVA) | payer MEDICARE, SELFPAY | PROVIDERS: PCP Family Medicine; Visit Provider Internal Medicine | DX: E34.9 Endocrine disorder, unspecified (principal); E55.9 Vitamin D deficiency, unspecified; E89.0 Postprocedural hypothyroidism; Z79.890 Hormone replacement therapy | CPT/HCPCS: 99214 ==

== ENCOUNTER → 2023-06-04 08:44 | Outpatient (BNVA) | payer MEDICARE, SELFPAY | PROVIDERS: PCP Family Medicine; Visit Provider Nurse Practitioner Family | DX: I10 Essential (primary) hypertension (principal); R53.83 Other fatigue; E66.01 Morbid (severe) obesity due to excess calories; Z68.41 Body mass index [BMI] 40.0-44.9, adult; E03.9 Hypothyroidism, unspecified; R73.03 Prediabetes; J06.9 Acute upper respiratory infection, unspecified; M10.9 Gout, unspecified; E34.9 Endocrine disorder, unspecified; E55.9 Vitamin D deficiency, unspecified | CPT/HCPCS: 80053; 80061; 82306; 82310; 83970; 84439; 84443; 84550; 87486; 87581; 87633 ==

== ENCOUNTER → 2023-07-27 07:50 | Outpatient (BNVA) | payer MEDICARE, SELFPAY | PROVIDERS: PCP Family Medicine; Visit Provider Internal Medicine | DX: E89.0 Postprocedural hypothyroidism (principal); E34.9 Endocrine disorder, unspecified; E55.9 Vitamin D deficiency, unspecified; Z79.890 Hormone replacement therapy | CPT/HCPCS: 99214 ==

== ENCOUNTER → 2023-10-06 11:13 | Outpatient (BNVA) | payer MEDICARE, SELFPAY | PROVIDERS: PCP Family Medicine; Visit Provider Nurse Practitioner Family | DX: N52.9 Male erectile dysfunction, unspecified (principal); I10 Essential (primary) hypertension; E89.0 Postprocedural hypothyroidism; E66.01 Morbid (severe) obesity due to excess calories; Z68.41 Body mass index [BMI] 40.0-44.9, adult; E55.9 Vitamin D deficiency, unspecified; R53.83 Other fatigue; R73.9 Hyperglycemia, unspecified; R73.03 Prediabetes | CPT/HCPCS: 80053; 80061; 82306; 82607; 83036; 84402; 84403; 84443; 85025 ==

== ENCOUNTER → 2023-10-26 08:30 | Outpatient (BNVA) | payer MEDICARE, SELFPAY | PROVIDERS: PCP Family Medicine; Visit Provider Internal Medicine | DX: E89.0 Postprocedural hypothyroidism (principal); N52.9 Male erectile dysfunction, unspecified; E55.9 Vitamin D deficiency, unspecified; R73.9 Hyperglycemia, unspecified; E34.9 Endocrine disorder, unspecified; Z79.890 Hormone replacement therapy | CPT/HCPCS: 99214 ==

== ENCOUNTER → 2023-10-29 09:04 | Outpatient (BNVA) | payer MEDICARE, SELFPAY | PROVIDERS: PCP Family Medicine; Visit Provider Nurse Practitioner Family | DX: R06.09 Other forms of dyspnea (principal); R53.83 Other fatigue | CPT/HCPCS: 93005 ==

== ENCOUNTER 2023-12-22 11:06 | Outpatient (CLI) | payer MEDICARE, SELFPAY ==
--- NOTE | 2023-12-22 11:21 | ECG_ITS ---
[facility] Test Date: 2023-12-22 Pat Name: Surinder Rebolledo Department: Room: Gender: Male Rn Progressive Care: : 1960 Requested By: Jen Abernathy Order Number: [id number] Lily MD: Lupe Barba M.D. Interpretive Statements NAME OF STUDY: TREADMILL STRESS TEST INDICATION: Melendez/fatigue, PROCEDURE: At the baseline, the patient's blood pressure was 156/105 with a heart rate of 109. The baseline electrocardiogram showed normal sinus rhythm with l nonspecific IVCD The patient exercised for 3 minutes on a standard Olman protocol. Patient attained a maximum heart rate of 152 beats per minute (97% of the maximum predicted heart rate) with a blood pressure at the peak exercise of 198/105 mm Hg. The EKG at the peak exercise revealed no significant changes. Patient did not have any chest pain or any significant cardiac arrhythmias with the exercise During the recovery phase, there were no new changes. Blood pressure at the end of the recovery phase was 162/71 mm Hg with a heart rate of 113 per minute. CONCLUSION: 1. The EKG response to the treadmill exercise is uninterpretable due to the baseline changes 2. No exercise-induced chest pain or cardiac arrhythmia 3. Impaired exercise tolerance, attained a maximum of 4.6 METs Consider pharmacological stress to better evaluate for coronary ischemia Electronically Signed On 12-26-2023 14:02:04 CDT by Lupe Barba M.D. [id number]
[2023-12-22 12:24] VITALS: BMI 42.5
[2023-12-22 12:26] VITALS: BP 162/71; PULSE 106
== END 2023-12-22 11:07 | disposition home or self-care (01) ==
PROVIDERS: PCP Family Medicine; Visit Provider Nurse Practitioner Family
DX: R06.09 Other forms of dyspnea (principal); R53.83 Other fatigue; R94.39 Abnormal result of other cardiovascular function study
CPT/HCPCS: 93017

== ENCOUNTER → 2024-02-15 10:22 | Outpatient (BNVA) | payer MEDICARE, SELFPAY | PROVIDERS: PCP Family Medicine; Visit Provider Nurse Practitioner Family | DX: E29.1 Testicular hypofunction (principal) | CPT/HCPCS: 80053; 82670; 84403; 85025 ==

== ENCOUNTER → 2024-03-14 08:21 | Outpatient (BNVA) | payer MEDICARE, SELFPAY | PROVIDERS: PCP Family Medicine; Visit Provider Nurse Practitioner Family | DX: R30.0 Dysuria (principal) | CPT/HCPCS: 81000 ==

== ENCOUNTER → 2024-04-04 10:44 | Outpatient (BNVA) | payer MEDICARE, SELFPAY | PROVIDERS: PCP Family Medicine; Referring Provider Nurse Practitioner Family; Visit Provider Internal Medicine Cardiovascular Disease | DX: R06.09 Other forms of dyspnea (principal); I10 Essential (primary) hypertension; R94.31 Abnormal electrocardiogram [ECG] [EKG]; I49.9 Cardiac arrhythmia, unspecified; R53.83 Other fatigue | CPT/HCPCS: 99205 ==

== ENCOUNTER 2024-05-04 07:09 | Outpatient (CLI) | payer MEDICARE, SELFPAY ==
[2024-05-04 07:30] VITALS: BMI 40.6
--- NOTE | 2024-05-04 07:30 | ECG_ITS ---
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 Interpretive Statements Lung unchanged pre/post procedure; Intraprocedure shortess of breath; Symptoms resoled by discharge PROCEDURE: At the baseline, the EKG revealed normal sinus rhythm with nonspecific IVCD. Minimal left axis deviation.. The baseline heart was 86 bpm with a blood pressue of 141/92 mm of Hg Lexiscan was infused over a period of 20 seconds. A total of 0.4 milligrams of Lexiscan was infused. The stress phase was continued for a total of 5 minutes. Heart rate at the end of the stress phase was a 94 bpm with a blood pressure 149/96 mm of Hg. The EKG at the peak infusion revealed no significant changes. Sestamibi was injected 20 seconds after the Lexiscan infusion. Heart rate at the end of the recovery phase was 88 bpm with a blood pressure of 156/80 mm of Hg. CONCLUSION: 1. No significant EKG changes with the LexiScan infusion 2. No LexiScan induced chest pain or cardiac arrhythmia 3. Normal blood pressure and heart rate response 4. Sestamibi/sestamibi perfusion scan pending; see separate report. Electronically Signed On 05-07-2024 12:45:40 CARD LACER JACQUARD by Lupe Barba M.D. [id number]
--- NOTE | 2024-05-04 07:31 | NMCV_ITS ---
NM kristy perf SPECT r/s* [id number] Surinder Rebolledo Age: 63 Gender: M : 1960 Exam Date: 05/04/2024 08:06 Ordering Phys: Lupe Barba MD ([email or web address]) Technologist: AISHA Acevedo Exam Location: [facility] Indications: cp STRESS TEST Please see separate stress test report in [facility] for full findings IMAGE PROTOCOL Rest/Stress 1 Lexiscan Day Radiopharmaceutical Dose (mCi) Administration Site Administered by Rest: Tc-99m 9 IV Katiana De, FLY WORKER Sestamibi Stress:Tc-99m 28.1 IV Katiana De, FLY WORKER Sestamibi Rest: 04-May-2024 60 Discovery 630 Stress: 04-May-2024 30 Discovery 630 0.4mg Lexiscan. Images obtained in supine and prone position. SPECT RESULTS Technical Quality: Good Raw Data Analysis: Normal Image Corrections: No attenuation or motion correction applied Summed Stress Score: 7 Summed Rest Score: 8 Summed Difference Score: 3 PERFUSION FINDINGS Moderate area of minimal to moderately decreased tracer uptake involving the mid and apical anterior, mid anterolateral and LV apex. Some reversibility was noted in these areas at rest. A small area of slightly decreased tracer uptake was noted in the mid inferior region, with no significant reversibility. With the prone imaging, worsening no significant reversible defects were noted. FUNCTIONAL RESULTS (calculated via Gated SPECT) Stress Image LV EF (%): 34 Stress EDV (mL):198 TID: 1.04 Stress ESV (mL):130 FUNCTIONAL FINDINGS: Segmental wall motion analysis revealed severe diffuse hypokinesis of the septum, inferior wall and the apex IMPRESSIONS 1. Myocardial perfusion imaging revealing moderate area of minimal to moderately decreased tracer uptake involving the anterior, anterolateral and apical regions with a small area of reversibility suggesting myocardial scarring with a possible small area of irlanda-infarction ischemia. However because of the inconsistency with the prone imaging, the reliability is questionable. 2. Diminished LV ejection fraction of 34%. 3. LV wall motion analysis revealed diffuse hypokinesia of the inferior wall, septum and the LV apex 4. Moderately dilated LV cavity with an end-systolic volume of 130 mL. The above features may suggest nonischemic form of cardiomyopathy with a small area of ischemia. Clinical correlation is recommended. No similar previous studies are available for comparison Dr Lupe Barba MD FACC (Electronically Signed) Final Date: 04 May 2024 17:13 S
--- NOTE | 2024-05-04 09:06 | PC.NURSE ---
Pt here for Exercise Mibi. Pre-stress patient placed on EKG monitoring and patient in SR with LBBB. Left message with Dr. Barba regarding findings. Dr. Mcmullen on unit and reviewed EKG. Verbal orders given to change to Lexiscan mibi. Updated patient with changes and agreeable to proceed with Lexiscan.
[2024-05-04] MEDS: regadenoson 0.4 Mg/5 ml Syringe IVP (09:10)
[2024-05-04 09:19] VITALS: BP 156/80; PULSE 88
== END 2024-05-04 07:10 | disposition home or self-care (01) ==
PROVIDERS: Visit Provider Internal Medicine Cardiovascular Disease
DX: Z98.61 Coronary angioplasty status (principal); R94.39 Abnormal result of other cardiovascular function study
CPT/HCPCS: 36415; 78452; 93017; 96374; A9500; J2785

== ENCOUNTER 2024-05-17 14:33 | Outpatient (CLI) | payer MEDICARE, SELFPAY ==
--- NOTE | 2024-05-17 14:39 | USCV_ITS ---
Kesha Surinder Age: 64 Gender: M : 1960 Exam Date: 05/17/2024 15:19 Ordering Phys: Lupe Barba MD ([email or web address]) Technologist: LEWIS Exam Location: [facility] – [place] Indication: SOB BP: 156 / 90 HR: 79 Rhythm: Sinus Technical Quality: Poor because of body habitus MEASUREMENTS (Male / Female) Normal Values 2D ECHO LV Diastolic Diameter PLAX 5.6 cm 4.2 - 5.9 / 3.9 - 5.3 cm IVS Diastolic Thickness 1.3 cm 0.6 - 1.0 / 0.6 - 0.9 cm IVS Systolic Thickness 2.3 cm LVPW Diastolic Thickness 1.6 cm 0.6 - 1.0 / 0.6 - 0.9 cm LVPW Systolic Thickness 2.6 cm LVOT Diameter 2.0 cm LV Ejection Fraction 2D Teich 61.2 % LV Ejection Fraction MOD 4C 62.2 % LV Ejection Fraction MOD 2C 63.6 % LV Ejection Fraction 2C AL 63.7 % LA Diameter 3.5 cm RA Systolic Volume 4C AL 33.0 ml RA Systolic Volume 4C MOD 31.9 ml LA Sys Volume AL 65.0 cm cubed LA Sys Volume Index AL 23.8 cm cubed/m squared Aorta at Sinotubular Diameter 2.6 cm M-MODE LA Ao Ratio MM 1.2 AV Cusp Separation MM 1.8 cm DOPPLER AV Peak Velocity 132.0 cm/s LVOT Peak Velocity 99.0 cm/s AV Area Cont Eq vti 2.7 cm squared AV Area Cont Eq pk 2.5 cm squared MV Peak Velocity 144.0 cm/s MV Area PHT 3.3 cm squared Mitral E to A Ratio 1.1 TR Peak Velocity 111.0 cm/s TR Peak Gradient 4.9 mmHg TR Mean Velocity 84.0 cm/s TR Mean Gradient 3.1 mmHg TR Velocity Time Integral 27.6 cm TV Peak E Velocity 41.0 cm/s Right Atrial Pressure 3.0 mmHg Pulmonary Artery Systolic Pressu 7.9 mmHg PV Peak Velocity 96.0 cm/s RV Ejection Time 0.3 s FINDINGS Left Ventricle Diffuse hypokinesia of the septum and the anteroseptal segments. LV ejection fraction around 50%. Technically difficult study because of the poor ultrasonic window. The LV cavity appears to be mildly dilated Right Ventricle Possibly of normal size ejection fraction Right Atrium Possibly of normal size Left Atrium Possibly of normal size Mitral Valve Thickened mitral valve. Mild mitral annular calcification. Aortic Valve Could not be delineated well Tricuspid Valve No gross abnormality noted Pulmonic Valve Pulmonic valve not well visualized. Pericardium No pericardial effusion. Aorta Normal aortic annulus size. IVC Inferior vena cava not visualized. CONCLUSIONS Diffuse hypokinesia of the septum and the anteroseptal segments. LV ejection fraction around 50%. (visual) The LV cavity appears to be mildly dilated. Thickened mitral valve. Mild mitral annular calcification. There is no pericardial effusion. Technically difficult study because of the poor ultrasonic window. Dr Lupe Barba MD FACC (Electronically Signed) Final Date: 24 May 2024 21:30 S
== END 2024-05-17 14:34 | disposition home or self-care (01) ==
LOC: RAD 14:33
PROVIDERS: Visit Provider Internal Medicine Cardiovascular Disease
DX: I34.81 Nonrheumatic mitral (valve) annulus calcification (principal); I51.0 Cardiac septal defect, acquired; R06.09 Other forms of dyspnea
CPT/HCPCS: 93306

== ENCOUNTER → 2024-06-08 09:16 | Outpatient (BNVA) | payer MEDICARE, SELFPAY | PROVIDERS: Visit Provider Internal Medicine | DX: E55.9 Vitamin D deficiency, unspecified (principal); E34.9 Endocrine disorder, unspecified; E89.0 Postprocedural hypothyroidism | CPT/HCPCS: 36415; 82306; 84439; 84443 ==

== ENCOUNTER → 2024-06-09 09:42 | Outpatient (BNVA) | payer MEDICARE, SELFPAY | PROVIDERS: Visit Provider Internal Medicine Cardiovascular Disease | DX: R94.39 Abnormal result of other cardiovascular function study (principal); I48.0 Paroxysmal atrial fibrillation; Z79.01 Long term (current) use of anticoagulants; R73.03 Prediabetes; R73.9 Hyperglycemia, unspecified; I10 Essential (primary) hypertension; R06.09 Other forms of dyspnea | CPT/HCPCS: 99215 ==

== ENCOUNTER 2024-06-21 10:58 | Outpatient (CLI) | payer MEDICARE, SELFPAY ==
[2024-06-21 11:19] LABS: Basophils # 0.1 10^3/uL (0.0-0.1); Basophils % 0.5 %; Eosinophils # 0.4 10^3/uL (0.0-0.8); Eosinophils % 3.2 %; Hematocrit 43.7 % (37-53); Lymphocytes # 2.2 10^3/uL (0.8-4.8); Lymphocytes % 19.4 %; Mean Corpuscular HGB Conc 31.8 g/dL (30-55); Mean Corpuscular Hemoglobin 26.9 pg (27-33); Mean Corpuscular Volume 84.7 fl (82-101); Mean Platelet Volume 10.2 fL (7.4-10.4); Monocytes % 8.6 %; Neutrophils # 7.57 10^3/uL (1.8-7.7); Neutrophils % 68.2 %; Nucleated Red Blood Cells % 0 %; Platelet Count 192 10^3/cmm (157-399); Red Blood Count 5.16 10^6/uL (3.85-5.65); Red Cell Distribution Width 15.6 % (12.1-15.1); White Blood Count 11.11 10^3/uL (3.29-11.43)
[2024-06-21 11:33] LABS: INR 1.01 (0.8-1.2)
[2024-06-21 11:53] LABS: Anion Gap 14.2 (5-19); Blood Urea Nitrogen 17 mg/dL (8-23); Calcium 8.9 mg/dL (8.5-10.5); Carbon Dioxide 28 mmol/L (22-29); Chloride 102 mmol/L (98-107); Glucose 128 mg/dL (65-115); Osmolality Calculated 293 mOsm/kg (285-295); Potassium 4.2 mmol/L (3.5-5.1); Sodium 140 mmol/L (136-145)
== END 2024-06-21 10:59 | disposition home or self-care (01) ==
LOC: LAB 11:01
PROVIDERS: PCP Family Medicine; Visit Provider Internal Medicine Cardiovascular Disease
DX: R06.02 Shortness of breath (principal); Z79.01 Long term (current) use of anticoagulants; I48.91 Unspecified atrial fibrillation; I25.118 Atherosclerotic heart disease of native coronary artery with other forms of angina pectoris
CPT/HCPCS: 80048; 85025; 85610; 86850; 86900

== ENCOUNTER 2024-06-27 07:24 | Outpatient (CLI) | payer MEDICARE, SELFPAY ==
[2024-06-27] VITALS (16 sets, daily range): BP systolic 112–164; BP diastolic 63–93; PULSE 54–81; RESP 12–21; TEMP 36.6; O2SAT 92–96; BMI 42.4
--- NOTE | 2024-06-27 08:09 | P.HPUD_ITS ---
Surgery/Procedure H&P Update DATE OF PROCEDURE: June 27, 2024 DATE H&P PERFORMED: 06/09/24 H&P UPDATE INFORMATION: I have reviewed H&P completed within last 30 days, I have examined patient prior to procedure and No changes to prior documentation PREOP DIAGNOSIS: ASHD PRIMARY INDICATION FOR PROCEDURE: Abnormal stress test, echocardiogram and ongoing symptoms PLANNED PROCEDURE: Operation Date: 06/27/24 08:30 Proposed Procedures p Cardiac Catheterization - [facility] w/wo LV & Coros(Left) - Lupe Barba MD PATIENT REASSESSED PRIOR TO SEDATION, WITH NO CHANGE NOTED: Yes PHYSICAL EXAM: alert, oriented x 3, clear to auscultation bilaterally and regular rate & rhythm AIRWAY EVAL/ANESTHESIA PLAN: normal airway, see other exam findings, ASA III, Monitored Anesthesia, Local Anesthesia, Risks, benefits & alternatives of sedation and/or procedure discussed and Patient agrees to continue as planned
[2024-06-27] MEDS: diphenhydrAMINE 50 mg Capsule PO (08:28)
[2024-06-27] MEDS: aspirin 325 mg Tablet PO (08:28)
--- NOTE | 2024-06-27 08:30 | XACV_ITS ---
Ht: 183 cm Wt: 142 kg BSA: 2.75 m2 Gender: Male : 1960 Any Known Allergies: No known allergies Exam Priority: Routine Indication(s): - Chest pain - Abnormal stress perfusion study Procedure(s): Procedure Description: Diagnostic procedure Procedure Description: Left Heart Catheterization Procedure Description: Left ventriculography Procedure Description: Coronary Angiography Jameson SULLIVAN; Diagnostic Cath Status: Elective Diagnostic Findings * The left main is a medium to large caliber short vessel with no significant stenotic lesions. * The left left anterior descending artery is a medium caliber vessel which appears to wrap around the LV apex minimally. Mild diffuse intimal irregularities were noted in the distal segment of the artery. * The circumflex artery is a medium to large caliber, dominant vessel with mild diffuse intimal irregularities. No significant stenotic lesions were noted. * The right coronary artery is a large dominant vessel with has a high and posterior takeoff. The ostium of the artery has minimal narrowing. Selective engagement is somewhat difficult. No significant stenotic lesions were noted. Conclusions 1. 64-year-old white male with a history of hypertension, atherosclerotic heart disease and previous PCI? Presented with complaints of shortness of breath and easy fatigability. He had a Myocardial perfusion imaging which was found to be abnormal with areas of fixed defect with a small areas of reversible defects. Ejection fraction was around 34% by nuclear scan. In view of the patient's ongoing symptoms and abnormal objective findings, in order to further evaluate the coronary status, a cardiac catheterization was recommended. So the patient underwent left heart catheterization with a left and right coronary angiogram and LV angiogram today. The findings are as follows.. 2. 1. Mild diffuse coronary artery disease 2. Co-dominant left circumflex artery.3. Right coronary artery has a high and posterior takeoff with some ostial narrowing. LV ejection fraction of 45%. LVEDP of 27 mmHg. Diagnostic RX Recommendation: medical therapy and/or counseling LV EDP: 27 mmHg Ventriculography Ejection Fraction: 45.0 % Left Ventriculography Findings: * The LV gram was performed in the BONNER projection. LV cavity appears to be mildly dilated. LVEDP was 27 mmHg. There was mild diffuse hypokinesia of the left ventricle. Ejection fraction around 45%. Pressures Phase:Rest AO : / ( 0 ) @ 9:08:00 AM 132 / 80 ( 103 ) @ 9:14:00 AM 142 / 75 ( 102 ) @ 9:34:00 AM 139 / 73 ( 100 ) @ 9:35:00 AM 138 / 73 ( 99 ) @ 9:35:00 AM LV : 134 / -3 / 18 @ 9:32:00 AM 143 / 10 / 27 @ 9:32:00 AM 146 / 11 / 28 @ 9:33:00 AM 143 / 5 / 29 @ 9:34:00 AM 142 / 4 / 28 @ 9:34:00 AM Valves Phase:DefaultPhase AV : 0.0 @ 9:47:11 AM AV Mean Gradient: 0.0 @ 9:47:11 AM Clinical Evaluation EBL: 5mL-10mL Procedural Details Procedure Consent Obtained. Admit Source: Out Patient. Pre-Procedure Time Out. Identified patient by full name and date of as verbalized by the patient/guarantor. Does the consent match the physician's order: Yes. Accurate & Complete Informed Consent: Yes. Inpatient/Outpatient History & Physical on Chart: Yes. If H&P is completed, is and addenduem needed: No; If yes, is the addendum complete: N/A. Visualize and Verify Site with Patient/Guarantor: N/A. Relevant Radiology Images available: N/A. The risks, benefits, and alternatives of sedation and/or procedure were discussed by physician. The patient agrees to continue. Procedure started. [facility] Clinical Fraility Score: 3: Managing Well. Gut Carrier Indications: Other- CHEST PAIN; ABNORMAL STRESS TEST; ASHD. Chest Pain Symptom Assessment: Typical Angina Symptoms. Cardiovascular Instability: No. Correct patient, site and procedure confirmed by cath team. Current diagnosis: Chest Pain; ASHD. PERRLA. Strong, equal hand flue cleaner bilaterally. Lungs clear x 5 lobes. IV Site on Arrival: 20 gauge in the left anticubital. IV Fluids: 0.9% NaCl at KVO. 0 mL infused prior to dental laboratory assistant. Pre Procedural Pulses: bilateral posterior tibial was Doppled. Pre Procedural Pulses: bilateral dorsalis pedis was Doppled. Pre Procedural Pulses: bilateral radial was 3+. Oxygen started at 3liters/min via nasal canula. right groin was prepped with chloroprep then draped in the usual sterile fashion. right radial was prepped with chloroprep then draped in the usual sterile fashion. Physician notified. Baseline sample Acquired. HR: 64 BPM. Physician arrived. Family updated by MD prior to the start of the procedure. Physician scrubbed in. Current Diagnosis : Chest Pain. Immediate Pre-Procedure Time Out. Correct Patient: Yes; Correct Procedure: Yes; Correct Site: Yes; Correct Patient Position: Yes; Correct Supplies: Yes; Dried Flammable Prep: Yes; Blood Products Available: N/A;. Lidocaine 1% infiltrated to the right radial. Arterial access obtained. A 5 indian Ky catheter in over wire. Multiple views taken of left coronary artery. Catheter removed over the exchange wire. A 5 indian JR4 catheter in over wire. Catheter removed over the exchange wire. A 5 indian 3DRC catheter in over wire. Catheter removed over the exchange wire. A 5 indian Angled Pig catheter in over wire. EDP Sample taken: LV 134/-4,18; HR: 72 BPM; SpO2: 97%. EDP Sample taken: LV 143/10,27; HR: 70 BPM; SpO2: 97%. EDP Sample taken: LV 146/11,28; HR: 69 BPM; SpO2: 97%. LV gram performed in BONNER @ 10 mL/second for a total of 30 mL. EDP Sample taken: LV 143/5,29; HR: 70 BPM; SpO2: 97%. Pullback taken: LV 142/4,28; AO 142/75(102); Mean: 0mmHg, Peak to Peak: 0mmHg, SEP: 7sec/min; HR: 68 BPM; SpO2: 97%. Catheter removed over the exchange wire. Physicain review of films. Contrast type used: Visipaque 320 mgI/mL, 200 mL bottle. [id number]. Post-op diagnosis: Mild CAD; High EDP; Cardiomyopathy. Physician Scrubbed out. A TR Band was successful obtaining hemostatsis at the Right Radial artery insertion site. TR band placed. Hemostasis obtained. Post Procedure: Pulses reassessed and unchanged. PERRLA. Strong, equal hand flue cleaner bilaterally. No VTE prophylaxis required. Medication waste Lidocaine- 18 ml. Nitro- 49.8 mg Heparin- 1000 units Fentanyl- 50 mcg. Total IV fluids: 30 mL. Fluoro: 13:00. Complications: None. Estimated blood loss: 5mL-10mL. Responsiveness - Normal response to verbal stimuli; alert and oriented, PERRLA. Airway - Unaffected, no intervention required; spontaneous ventilation. Circulation: W/N/L, pulses unchanged. Nausea/Vomiting: No. Procedure completed. Patient transferred by wheelchair to CPRU. Vital chart was stopped. Access Site Site: Right Radial artery Sheath Size: 6 Fr Hemostasis Method: TR Band Hemostasis Success: Successful Procedure Medications Start: 9:04 AM Stop: 9:04 AM Medication: Versed Amount: 1 mg Route: I.V. Start: 9:04 AM Stop: 9:04 AM Medication: Fentanyl Amount: 50 mcg Route: I.V. Start: 9:09 AM Stop: 9:09 AM Medication: Nitrogylcerin Amount: 200 mcg Route: I.A. Start: 9:09 AM Stop: 9:09 AM Medication: Verapamil Amount: 5 mg Route: I.A. Start: 9:10 AM Stop: 9:10 AM Medication: Versed Amount: 1 mg Route: I.V. Start: 9:14 AM Stop: 9:14 AM Medication: Heparin Amount: 5000 units Route: I.V. I, the attending physician, have reviewed and verified all procedure medications. Yes, all medications given per verbal order History/Risk Factors Hypertension: Yes Dyslipidemia: No Peripheral Arterial Disease (PAD): Yes Myocardial Infarction (GA): No Obesity: Yes Renal Disease: No Tobacco Use: Never Prior Interventions PCI: Yes CABG: No Valve Surgery: No Date of PCI: 06/29/1994 Report Signatures Finalized by Dr Lupe Barba MD [facility] on 06/28/2024 11:03 AM
--- NOTE | 2024-06-27 12:00 | PC.NURSE ---
TR band removal Started releasing air from TR band at 1050. 2-3ml air released every 5-15min until band deflated. TR band deflated at 1150. Site asymptomatic, no hematoma , bruising, or bleeding observed. Radial pulse palpable. Site dressed with Large clean bandaid. Pt denies pain.
--- NOTE | 2024-06-27 13:18 | PC.NURSE ---
Discharge Verbal and written discharge instructions given to patient and and verbalized understanding. Right radial site asymptomatic. No signs of bleeding or hematoma. Dressing clean dry and intact. Patient escorted to private vehicle via w/c.
== END 2024-06-27 13:20 | disposition home or self-care (01) ==
PROVIDERS: PCP Family Medicine; Visit Provider Internal Medicine Cardiovascular Disease
DX: I25.118 Atherosclerotic heart disease of native coronary artery with other forms of angina pectoris (principal); I10 Essential (primary) hypertension; Z79.82 Long term (current) use of aspirin; I48.0 Paroxysmal atrial fibrillation
CPT/HCPCS: 36415; 93458; 96365; 96374; 99152; 99153; C1769; C1887; C1894; J1644; J2250; J3010; J3490; J7030; Q0163; Q9967

== ENCOUNTER → 2024-07-06 12:40 | Outpatient (BNVA) | payer MEDICARE, SELFPAY | PROVIDERS: PCP Family Medicine; Visit Provider Nurse Practitioner Family | DX: R94.39 Abnormal result of other cardiovascular function study (principal); I10 Essential (primary) hypertension; R06.09 Other forms of dyspnea; I48.0 Paroxysmal atrial fibrillation; R73.03 Prediabetes; R73.9 Hyperglycemia, unspecified | CPT/HCPCS: 36415; 80048; 85025; 99213 ==

== ENCOUNTER 2024-07-29 11:25 | Outpatient (CLI) | payer MEDICARE, SELFPAY ==
[2024-07-29 11:45] LABS: Basophils # 0.1 10^3/uL (0.0-0.1); Basophils % 0.5 %; Eosinophils # 0.3 10^3/uL (0.0-0.8); Eosinophils % 3.4 %; Hematocrit 41.9 % (37-53); Lymphocytes # 2.3 10^3/uL (0.8-4.8); Lymphocytes % 22.6 %; Mean Corpuscular HGB Conc 31.7 g/dL (30-55); Mean Corpuscular Hemoglobin 27.3 pg (27-33); Mean Corpuscular Volume 85.9 fl (82-101); Mean Platelet Volume 9.7 fL (7.4-10.4); Monocytes # 0.9 10^3/uL (0.2-0.9); Monocytes % 8.7 %; Neutrophils # 6.46 10^3/uL (1.8-7.7); Neutrophils % 64.6 %; Nucleated Red Blood Cells % 0 %; Platelet Count 183 10^3/cmm (157-399); Red Blood Count 4.88 10^6/uL (3.85-5.65); Red Cell Distribution Width 15.1 % (12.1-15.1)
[2024-07-29 12:18] LABS: Alanine Aminotransferase 21 U/L (0-41); Albumin Level 3.8 g/dL (3.5-5.2); Alkaline Phosphatase 94 U/L (40-130); Anion Gap 13.5 (5-19); Aspartate Amino Transferase 15 U/L (0-40); Blood Urea Nitrogen 15 mg/dL (8-23); Calcium 9.1 mg/dL (8.5-10.5); Carbon Dioxide 26 mmol/L (22-29); Chloride 106 mmol/L (98-107); Globulin 3.1 g/dL (1.3-4.6); Glucose 158 mg/dL (65-115); Osmolality Calculated 296 mOsm/kg (285-295); Potassium 4.5 mmol/L (3.5-5.1); Sodium 141 mmol/L (136-145); Total Bilirubin 0.2 mg/dL (0.15-1.2); Total Protein 6.9 g/dL (6.6-8.7)
[2024-07-29 13:05] LABS: Testosterone Total 257.8 ng/dL (193-740)
== END 2024-07-29 11:26 | disposition home or self-care (01) ==
PROVIDERS: PCP Family Medicine; Visit Provider Urology
DX: E29.1 Testicular hypofunction (principal)
CPT/HCPCS: 36415; 80053; 82670; 84403; 85025

== ENCOUNTER 2024-09-03 22:00 | Emergency (ER) | payer MEDICARE, SELFPAY ==
[2024-09-03 22:15] VITALS: BP 144/83; PULSE 103; RESP 20; TEMP 36.9; O2SAT 94; BMI 40.2
--- NOTE | 2024-09-03 22:25 | XRR_ITS ---
PROCEDURE INFORMATION: Exam: XR Chest Exam date and time: 09/03/2024 10:39 PM Age: 64 years old Clinical indication: Cough and shortness of breath; Prior surgery; Surgery date: 6+ months; Surgery type: Thyroidectomy; Cough with SOB TECHNIQUE: Imaging protocol: Radiologic exam of the chest. Views: 1 view. COMPARISON: CT angio chest PE protcl [id number] 09/10/2021 5:41 PM FINDINGS: Lungs: Unremarkable. No consolidation. Pleural spaces: Unremarkable. No pleural effusion. No pneumothorax. Heart/Mediastinum: Unremarkable. No cardiomegaly. Bones/joints: Unremarkable. XR/XR chest 1V portable [id number] IMPRESSION: No acute findings.
--- NOTE | 2024-09-03 22:29 | ED_ITS ---
HPI - SOB/Dyspnea 2 General: Chief Complaint: Shortness of Breath/Dyspnea Stated Complaint: SOB Coughing Time Seen by Provider: 09/03/24 22:06 History of Present Illness: HPI Narrative: 64-year-old gentleman with history of a week of cough. Cough has been increasing across the week. Originally had fever, but has not in a couple of days. Cough is productive of minimal amounts of white sputum. He has become increasingly short of breath today. He uses nebulizer machine with some transient relief. Denies overt chest pain. He denies leg swelling. He does admit to some throat soreness from the coughing. No vomiting or diarrhea. Related Data Home Medications ?Medication ?Instructions ?Recorded ?Confirmed aspirin 81 mg tablet,delayed 81 mg PO DAILY 09/10/21 0 07/06/24 release tadalafil 10 mg tablet 10 mg PO DAILY PRN Erectile 04/04/24 07/06/24 Dysfunction testosterone 2 pump topical DAILY 4 07/06/24 Previous Rx's ?Medication ?Instructions ?Recorded cholecalciferol (vitamin D3) 1,250 50,000 unit PO .cathryn nickerson #12 caps 07/27/23 mcg (50,000 unit) capsule levothyroxine 88 mcg tablet See Rx Instructions .Route 02/18/24 .COMPLEX #90 tabs cyclobenzaprine 10 mg tablet 10 mg PO TID PRN Pain #90 tabs 03/14/24 linaclotide 145 mcg capsule 145 mcg PO DAILY PRN const ipation 03/14/24 (Linzess) 90 days #90 caps tamsulosin 0.4 mg capsule (Flomax) 0.4 mg PO DAILY 90 days #90 caps 03/14/24 metoprolol tartrate 25 mg tablet 25 mg PO BID 30 days #60 tabs 06/09/24 empagliflozin 10 mg tablet 10 mg PO DAILY #90 tabs 02/20 (Jardiance) sacubitril 49 mg-valsartan 51 mg 1 tab PO BID #180 tab s 08/03/24 tablet (Entresto) albuterol sulfate 2.5 mg/3 mL 2.5 mg (3 mL) inhalation Q4H PRN 09/03/24 (0.083 %) solution for nebulization shortness of breat h or wheezing #90 mL doxycycline hyclate 100 mg tablet 100 mg PO BID 7 days #14 tabs 09/03/24 Allergies Allergy/AdvReac Type Severity Reaction Status Date / Time No Known Allergies Allergy Verified 07/06/24 12:51 PFSH ED 2 PFSH: Medical History Gout Surgical History Hx of total thyroidectomy History of angioplasty History of esophagogastroduodenoscopy (EGD) History of colonoscopy Family History Other CAD (coronary artery disease) Hyperlipidemia Hypertension Stroke Social History Smoking and tobacco/nicotine status: never used tobacco/nicotine Second hand smoke exposure: No Alcohol intake: unknown Substance/Drug Use: never Adopted: No Lives independently: Yes Household members: spouse Housing: House Marital status: Number of children: 2 Number of grandchildren: 9 Highest education level completed: High School Graduate service: No Current occupational status: retired Pets and animals: Yes Current gender identity: Male Physical Exam 2 Const: COMMON NORMALS: no acute distress GENERAL APPEARANCE: cooperative; not ill appearing and not frail appearing HENMT: COMMON NORMALS: normocephalic, atraumatic and Normal external nose present HEAD & SCALP: normocephalic and atraumatic FACE & SINUS: normal facial exam and face symmetric NOSE: Normal external nose present Eye: COMMON NORMALS: Equal, round and reactive pupils present and EOMs intact bilaterally PUPIL: Yes Equal, round and reactive pupils present Neck/C-Spine: GENERAL: Yes trachea midline Chest: CHEST: Yes Symmetrical chest wall rise Resp: COMMON NORMALS: No retractions and No use of accessory muscles A USCULTATION: wheezes Cardio: COMMON NORMALS: regular rate and regular rhythm RATE: regular rate RHYTHM: regular rhythm GI: COMMON NORMALS: Normal to inspection, nondistended, normoactive bowel sounds present Extremity: COMMON NORMALS: no pedal edema Neuro: HANSEL COMA SCALE: document GCS findings Hansel coma scale eye opening: Spontaneous Hansel coma scale verbal response: Orientated Hansel coma scale motor response: Obey commands Hansel coma scale total score: 15 S ENSORY EXAM: Yes extremities (intact) Psych: COMMON NORMALS: speech normal SPEECH: Yes normal speech Skin: COMMON NORMALS: no rashes or lesions noted GENERAL SKIN EXAM: no rashes or lesions noted Course 2 Vital Signs: Vital signs: Vital Signs Temperature 98.4 F 09/03/24 22:15 Pulse Rate 100 09/04/24 00:05 Respiratory Rate 14 09/04/24 00:05 Blood Pressure 154/101 09/04/24 00:05 Pulse Oximetry 96 09/04/24 00:05 Oxygen Delivery Me thod Room Air 09/03/24 23:44 MDM - SOB/Dyspnea Medical Decision Making Chest x-ray is nonacute. His white blood cell count is 12. Creatinine is 1.3. He is positive for influenza A. He is given dexamethasone and DuoNeb treatment here with improvement. He has had symptoms for more than a week. Because of this we will cover with antibiotics for empiric therapy, and represcribe his albuterol since his albuterol at home is likely . He is to return for any worsening symptoms despite treatment. Lab Data 09/03/24 22:45 09/03/24 22:45 Labs/Radiology: Radiology Impressions Chest X-Ray 09/03/24 22:25 IMPRESSION: No acute findings. Laboratory Results WBC 12.09 10^3/uL (3.29-11.43) H 09/03/24 22:45 RBC 5.05 10^6/uL (3.85-5.65) 09/03/24 22:45 Hgb 13.60 g/dL (11.27-16.99) 09/03/24 22:45 Hct 43.6 % (37-53) 09/03/24 22:45 MCV 86.3 fl (82-101) 09/03/24 22:45 MCH 26.9 pg (27-33) L 09/03/24 22:45 MCHC 31.2 g/dL (30-55) 09/03/24 22:45 RDW 14.4 % (12.1-15.1) 09/03/24 22:45 Plt Count 221 10^3/cmm (157-399) 09/03/24 22:45 MPV 9.2 fL (7.4-10.4) 09/03/24 22:45 Neut % (Auto) 61.6 % 09/03/24 22:45 Lymph % (Auto) 19.4 % 09/03/24 22:45 [place] % (Auto) 13.0 % 09/03/24 22:45 Eos % (Auto) 5.4 % 09/03/24 22:45 Baso % (Auto) 0.3 % 09/03/24 22:45 Neut # (Auto) 7.44 10^3/uL (1.8-7.7) 09/03/24 22:45 Lymph # (Auto) 2.4 10^3/uL (0.8-4.8) 09/03/24 22:45 [place] # (Auto) 1.6 10^3/uL (0.2-0.9) H 09/03/24 22:45 Eos # (Auto) 0.7 10^3/uL (0.0-0.8) 09/03/24 22:45 Baso # (Auto) 0.0 10^3/uL (0.0-0.1) 09/03/24 22:45 Nucleated RBC % (auto) 0 % 09/03/24 22:45 Nucleated RBCs # 0.0 /100WBC 09/03/24 22:45 Sodium 142 mmol/L (136-145) 09/03/24 22:45 Potassium 3.9 mmol/L (3.5-5.1) 09/03/24 22:45 Chloride 104 mmol/L (98-107) 09/03/24 22:45 Carbon Dioxide 27 mmol/L (22-29) 09/03/24 22:45 Anion Gap 14.9 (5-19) 09/03/24 22:45 BUN 17 mg/dL (8-23) 09/03/24 22:45 Creatinine 1.3 mg/dL (0.7-1.2) H 09/03/24 22:45 GFR Calculation 55.4 mL/min (90-130) L 09/03/24 22:45 Glucose 120 mg/dL (65-115) H 09/03/24 22:45 Calculated Osmolality 297 mOsm/kg (285-295) H 09/03/24 22:45 Lactic Acid 1.2 mmol/L (0.5-2.2) 09/03/24 22:45 Calcium 8.9 mg/dL (8.5-10.5) 09/03/24 22:45 Total Bilirubin 0.3 mg/dL (0.15-1.2) 09/03/24 22:45 AST 19 U/L (0-40) 09/03/24 22:45 ALT 33 U/L (0-41) 09/03/24 22:45 Alkaline Phosphatase 81 U/L (40-130) 09/03/24 22:45 NT-Pro-B Natriuret Pep 111 pg/mL (0-125) 09/03/24 22:45 Total Protein 7.0 g/dL (6.6-8.7) 09/03/24 22:45 Albumin 3.8 g/dL (3.5-5.2) 09/03/24 22:45 Globulin 3.2 g/dL (1.3-4.6) 09/03/24 22:45 Influenza A (PCR) Positive (Negative) 09/03/24 22:28 Influenza Type B (PCR) Negative (Negative) 09/03/24 22:28 RSV (PCR) Negative (Negative) 09/03/24 22:28 SARS-CoV-2 (PCR) Negative (Negative) 09/03/24 22:28 All radiology interpretation(s) finalized by discharge Discharge Plan Discharge Patient Disposition: Home Clinical Impression: Acute bronchitis, Influenza A COPD (chronic obstructive pulmonary disease) Qualifiers: COPD type: unspecified COPD Qualified Code(s): J44.9 - Chronic obstructive pulmonary disease, unspecified Condition: Stable Prescriptions: New albuterol sulfate 2.5 mg /3 mL (0.083 %) solution for nebulization 2.5 mg inhalation Q4H PRN (Reason: shortness of breath or wheezing) Qty: 90 0RF doxycycline hyclate 100 mg tablet 100 mg PO BID 7 Days Qty: 14 0RF No Action tadalafil 10 mg tablet 10 mg PO DAILY PRN (Reason: Erectile Dysfunction) testosterone 20.25 mg/1.25 gram (1.62 %) gel in metered-dose pump 2 pump topical DAILY Rx Instructions: apply 1 pump amount over max area of EACH upper arm and shoulder Jardiance 10 mg tablet 10 mg PO DAILY Qty: 90 0RF cholecalciferol (vitamin D3) 1,250 mcg (50,000 unit) capsule 50,000 unit PO .weekly Qty: 12 0RF Rx Instructions: take one capsule weekly until next appt tamsulosin [Flomax] 0.4 mg capsule 0.4 mg PO DAILY 90 Days Qty: 90 1RF Linzess 145 mcg capsule 145 mcg PO DAILY PRN (Reason: constipation) 90 Days Qty: 90 1RF cyclobenzaprine 10 mg tablet 10 mg PO TID PRN (Reason: Pain) Qty: 90 0RF metoprolol tartrate 25 mg tablet 25 mg PO BID 30 Days Qty: 60 5RF levothyroxine 88 mcg tablet See Rx Instructions .ROUTE .COMPLEX Qty: 90 3RF Dose Instruction: TAKE ONE TABLET BY MOUTH DAILY Rx Instructions: TAKE ONE TABLET BY MOUTH DAILY sacubitril-valsartan [Entresto] 49-51 mg tablet 1 tab PO BID Qty: 180 2RF aspirin 81 mg Tablet,Delayed Release (Dr/Ec) 81 mg PO DAILY Discharge Orders: Discharge ED (Routine); Ordered 09/03/24 Ordered By: Fco Pollock Referrals: Brooke Escalante MD [Primary Care Provider] - 1-3 days Patient Instructions: Influenza (ED), Acute Bronchitis (ED), Opioid Safety, Pain Management Activity Restrictions/Additional Instructions: Use your albuterol treatments every 4 hours while awake scheduled for the next 48 hours whether you feel you need them or not. Use them as needed following that. Antibiotics as directed. Stay hydrated. Return for any problems. See your doctor next week. Print Language: Sami Coding Level of Care Code ED Emergency Services Director for Jonah Argueta
--- NOTE | 2024-09-03 22:34 | ECG_ITS ---
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1960 Requested By: Fco Blanco Order Number: [id number] iLly MD: BRENTON LINDSAY Measurements Intervals [place] Rate: 88 P: 57 NC: 172 QRS: -65 QRSD: 153 T: 69 QT: 401 QTc: 488 Interpretive Statements SINUS RHYTHM WITH SINUS ARRHYTHMIA LEFT AXIS DEVIATION [QRS AXIS < -30] LEFT BUNDLE BRANCH BLOCK [120+ ms QRS DURATION, 80+ ms Q/S IN V1/V2, 85+ ms R IN I/aVL/V5/V6] Compared to ECG 09/10/2021 18:40:34 Left-axis deviation now present Left bundle-branch block now present Sinus tachycardia no longer present Electronically Signed On 09-05-2024 22:17:27 CDT by BRENTON LINDSAY [id number] [id number]
[2024-09-03 22:48] VITALS: PULSE 99; O2SAT 93
[2024-09-03 22:49] VITALS: BP 155/89; PULSE 92; O2SAT 95
[2024-09-03] MEDS: dexamethasone 4 mg/mL INJ 8 MG IVP (22:51)
[2024-09-03 22:52] LABS: Basophils % 0.3 %; Eosinophils # 0.7 10^3/uL (0.0-0.8); Eosinophils % 5.4 %; Hematocrit 43.6 % (37-53); Lymphocytes # 2.4 10^3/uL (0.8-4.8); Lymphocytes % 19.4 %; Mean Corpuscular HGB Conc 31.2 g/dL (30-55); Mean Corpuscular Hemoglobin 26.9 pg (27-33); Mean Corpuscular Volume 86.3 fl (82-101); Mean Platelet Volume 9.2 fL (7.4-10.4); Monocytes # 1.6 10^3/uL (0.2-0.9); Neutrophils # 7.44 10^3/uL (1.8-7.7); Neutrophils % 61.6 %; Nucleated Red Blood Cells % 0 %; Platelet Count 221 10^3/cmm (157-399); Red Blood Count 5.05 10^6/uL (3.85-5.65); Red Cell Distribution Width 14.4 % (12.1-15.1); White Blood Count 12.09 10^3/uL (3.29-11.43)
[2024-09-03 23:10] LABS: Influenza A POSITIVE (Negative); Influenza B NEGATIVE (Negative); Respiratory Syncytial Virus Ce NEGATIVE (Negative); SARS-CoV-2 PCR NEGATIVE (Negative)
[2024-09-03 23:11] LABS: Lactic Sepsis W/Reflex 1.2 mmol/L (0.5-2.2)
[2024-09-03] MEDS: ipratropium-albuterol 3 mL Neb INHALATION (23:19)
[2024-09-03 23:20] VITALS: PULSE 90; RESP 18; O2SAT 94
[2024-09-03 23:22] LABS: Alanine Aminotransferase 33 U/L (0-41); Albumin Level 3.8 g/dL (3.5-5.2); Alkaline Phosphatase 81 U/L (40-130); Anion Gap 14.9 (5-19); Aspartate Amino Transferase 19 U/L (0-40); Blood Urea Nitrogen 17 mg/dL (8-23); Calcium 8.9 mg/dL (8.5-10.5); Carbon Dioxide 27 mmol/L (22-29); Chloride 104 mmol/L (98-107); Creatinine Clr Calc Pharmacy 80.4862; Globulin 3.2 g/dL (1.3-4.6); Glomerular Filtration Rate 55.4 mL/min (90-130); Glucose 120 mg/dL (65-115); NT Pro B Type Natriuretic Pept 111 pg/mL (0-125); Osmolality Calculated 297 mOsm/kg (285-295); Potassium 3.9 mmol/L (3.5-5.1); Sodium 142 mmol/L (136-145); Total Bilirubin 0.3 mg/dL (0.15-1.2)
[2024-09-03 23:31] VITALS: PULSE 97
[2024-09-03 23:44] VITALS: BP 154/101; PULSE 94; RESP 16; O2SAT 95
[2024-09-04 00:05] VITALS: BP 154/101; PULSE 100; RESP 14; O2SAT 96
== END 2024-09-03 23:58 | disposition home or self-care (01) ==
PROVIDERS: Emergency Provider Emergency Medicine; PCP Family Medicine
DX: J44.89 Other specified chronic obstructive pulmonary disease (principal); J10.1 Influenza due to other identified influenza virus with other respiratory manifestations; Z11.52 Encounter for screening for COVID-19; Z79.82 Long term (current) use of aspirin
CPT/HCPCS: 71045; 80053; 83605; 83880; 85025; 87637; 93005; 94640; 96374; 99285; J1100

== ENCOUNTER → 2024-09-06 14:08 | Outpatient (BNVA) | payer MEDICARE, SELFPAY | PROVIDERS: PCP Family Medicine; Visit Provider Nurse Practitioner Family | DX: R05.1 Acute cough (principal); J40 Bronchitis, not specified as acute or chronic | CPT/HCPCS: 71046 ==

== ENCOUNTER 2024-09-06 16:57 | Emergency (ER) | payer MEDICARE, SELFPAY ==
[2024-09-06] VITALS (7 sets, daily range): BP systolic 127–171; BP diastolic 68–117; PULSE 88–103; RESP 18–21; TEMP 36.6; O2SAT 93–98; BMI 41.2
--- NOTE | 2024-09-06 17:05 | XRR_ITS ---
PROCEDURE INFORMATION: Exam: XR Chest Exam date and time: 09/06/2024 5:58 PM Age: 64 years old Clinical indication: Dyspnea; Additional info: SOB, weakness and hard to breath TECHNIQUE: Imaging protocol: Radiologic exam of the chest. Views: 1 view. COMPARISON: CR XR chest 2V* [id number] 09/06/2024 2:12 PM FINDINGS: Lungs: Unremarkable. No consolidation. Pleural spaces: Unremarkable. No pleural effusion. No pneumothorax. Heart/Mediastinum: Unremarkable. No cardiomegaly. Bones/joints: Unremarkable. XR/XR chest 1V portable [id number] IMPRESSION: No acute findings.
--- NOTE | 2024-09-06 17:06 | ECG_ITS ---
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 Measurements Intervals [place] Rate: 84 P: 30 HI: 170 QRS: -75 QRSD: 150 T: 64 QT: 408 QTc: 483 Interpretive Statements SINUS RHYTHM WITH OCCASIONAL SUPRAVENTRICULAR PREMATURE COMPLEXES LEFT AXIS DEVIATION [QRS AXIS < -30] INTRAVENTRICULAR CONDUCTION DELAY [130+ ms QRS DURATION] Compared to ECG 09/03/2024 22:34:45 Intraventricular conduction delay now present Sinus arrhythmia no longer present Left bundle-branch block no longer present Electronically Signed On 09-09-2024 19:14:43 CDT by Naman Lynn M.D. [id number] [id number]
--- NOTE | 2024-09-06 17:39 | ED_ITS ---
HPI - SOB/Dyspnea 2 General: Chief Complaint: Shortness of Breath/Dyspnea Stated Complaint: sob, cough Time Seen by Provider: 09/06/24 17:25 Source: patient Mode of arrival: ambulatory Limitations: no limitations History of Present Illness: HPI Narrative: 64-year-old male states he has been havi ng cough congestion shortness of breath over the last week. He is tested positive for flu on the eighth he states he did receive a steroid albuterol. He went clinic today is given a Rocephin shot along with Levaquin and breathing treatment states he been having increasing dyspnea especially with exertion. He states is improved since the breathing treatment he denies any chest pain denies any fever Associated symptoms: Deny abdominal pain, chest pain, fever(s), nausea or vomiting Related Data Home Medications ?Medication ?Instructions ?Recorded ?Confirmed aspirin 81 mg tablet,delayed 81 mg PO DAILY 09/10/21 0 09/06/24 release tadalafil 10 mg tablet 10 mg PO DAILY PRN Erectile 04/04/24 09/06/24 Dysfunction testosterone 2 pump topical DAILY 4 09/06/24 Previous Rx's ?Medication ?Instructions ?Recorded cholecalciferol (vitamin D3) 1,250 50,000 unit PO .cathryn nickerson #12 caps 07/27/23 mcg (50,000 unit) capsule levothyroxine 88 mcg tablet See Rx Instructions .Route 02/18/24 .COMPLEX #90 tabs cyclobenzaprine 10 mg tablet 10 mg PO TID PRN Pain #90 tabs 03/14/24 linaclotide 145 mcg capsule 145 mcg PO DAILY PRN const ipation 03/14/24 (Linzess) 90 days #90 caps tamsulosin 0.4 mg capsule (Flomax) 0.4 mg PO DAILY 90 days #90 caps 03/14/24 metoprolol tartrate 25 mg tablet 25 mg PO BID 30 days #60 tabs 06/09/24 empagliflozin 10 mg tablet 10 mg PO DAILY #90 tabs 02/20 (Jardiance) sacubitril 49 mg-valsartan 51 mg 1 tab PO BID #180 tab s 08/03/24 tablet (Entresto) albuterol sulfate 2.5 mg/3 mL 2.5 mg (3 mL) inhalation Q4H PRN 03/08/25 (0.083 %) solution for nebulization shortness of breat h or wheezing #90 mL doxycycline hyclate 100 mg tablet 100 mg PO BID 7 days #14 tabs 09/03/24 ipratropium 0.5 mg-albuterol 3 mg 3 ml inhalation QID PRN wheezing 09/06/24 (2.5 mg base)/3 mL nebulization #90 mL soln levofloxacin 750 mg tablet 750 mg PO DAILY #7 tabs 05/23 prednisone 10 mg tablets in a dose See Rx Instructions PO PER PKG DIR 09/06/24 pack #21 ea Allergies Allergy/AdvReac Type Severity Reaction Status Date / Time No Known Allergies Allergy Verified 09/06/24 13:17 Review of Systems 2 Const: Denies: fever(s), chills, body aches or change in appetite ENMT: Denies: throat pain or dental pain Card: Denies: chest pain Resp: Reports: dyspnea, non-productive cough and wheezing GI: Denies: abdominal pain, nausea, vomiting or diarrhea Musc: Denies: neck pain or back pain Skin/Breast: Denies: rash Neuro: Denies: headache(s) PFSH ED 2 PFSH: Medical History Gout Surgical History Hx of total thyroidectomy History of angioplasty History of esophagogastroduodenoscopy (EGD) History of colonoscopy Family History Other CAD (coronary artery disease) Hyperlipidemia Hypertension Stroke Social History Smoking and tobacco/nicotine status: never used tobacco/nicotine Second hand smoke exposure: No Alcohol intake: unknown Substance/Drug Use: never Adopted: No Lives independently: Yes Household members: spouse Housing: House Marital status: Number of children: 2 Number of grandchildren: 9 Highest education level completed: High School Graduate service: No Current occupational status: retired Pets and animals: Yes Current gender identity: Male Physical Exam 2 Const: COMMON NORMALS: patient oriented x3 HENMT: COMMON NORMALS: normocephalic and atraumatic HEAD & SCALP: n ormocephalic and atraumatic Eye: COMMON NORMALS: conjunctivae normal CONJUNCTIVA: Yes conjunctivae normal Neck/C-Spine: COMMON NORMALS: full ROM and supple Chest: COMMONS NORMALS: normal inspection of the chest Resp: COMMON NORMALS: No retractions and No use of accessory muscles A USCULTATION: wheezes Cardio: COMMON NORMALS: regular rate, regular rhythm and No murmurs present (Cardio) RATE: regular rate RHYTHM: regular rhythm GI: COMMON NORMALS: Normal to inspection, nondistended, normoactive bowel sounds present, Soft to palpation, non-tender and no masses PALPATION: Yes Soft to palpation Extremity: COMMON NORMALS: normal to inspection and full ROM Neuro: COMMON NORMALS: patient oriented x3, moves all extremities and no focal motor deficits Psych: COMMON NORMALS: mental status grossly normal, Normal thought process present and cooperative THOUGHT PROCESS: Normal thought process present Skin: COMMON NORMALS: no rashes or lesions noted and no wounds GENERAL SKIN EXAM: no rashes or lesions noted Course 2 Vital Signs: Vital signs: Vital Signs Temperature 97.9 F 09/06/24 17:06 Pulse Rate 101 H 09/06/24 18:26 Respiratory Rate 18 09/06/24 18:13 Blood Pressure 159/78 09/06/24 18:26 Pulse Oximetry 94 09/06/24 18:26 Oxygen Delivery Me thod Room Air 09/06/24 18:26 MDM - SOB/Dyspnea Medical Decision Making Patient presents here with influenza he had no hypoxia here he stable for discharge he is to continue his meds at home he is return if worsening he understands agrees to plan. Medical Records I reviewed the patient's medical records. Lab Data I reviewed the patient's lab results. 09/06/24 18:04 09/06/24 18:04 Labs/Radiology: Radiology Impressions Chest X-Ray 09/06/24 17:05 IMPRESSION: No acute findings. Laboratory Results WBC 12.82 10^3/uL (3.29-11.43) H 09/06/24 18:04 RBC 4.93 10^6/uL (3.85-5.65) 09/06/24 18:04 Hgb 13.10 g/dL (11.27-16.99) 09/06/24 18:04 Hct 43.1 % (37-53) 09/06/24 18:04 MCV 87.4 fl (82-101) 09/06/24 18:04 MCH 26.6 pg (27-33) L 09/06/24 18:04 MCHC 30.4 g/dL (30-55) 09/06/24 18:04 RDW 14.9 % (12.1-15.1) 09/06/24 18:04 Plt Count 232 10^3/cmm (157-399) 09/06/24 18:04 MPV 9.9 fL (7.4-10.4) 09/06/24 18:04 Neut % (Auto) 78.7 % 09/06/24 18:04 Lymph % (Auto) 9.7 % 09/06/24 18:04 [place] % (Auto) 6.7 % 09/06/24 18:04 Eos % (Auto) 4.2 % 09/06/24 18:04 Baso % (Auto) 0.4 % 09/06/24 18:04 Neut # (Auto) 10.09 10^3/uL (1.8-7.7) H 09/06/24 18:04 Lymph # (Auto) 1.2 10^3/uL (0.8-4.8) 09/06/24 18:04 [place] # (Auto) 0.9 10^3/uL (0.2-0.9) 09/06/24 18:04 Eos # (Auto) 0.5 10^3/uL (0.0-0.8) 09/06/24 18:04 Baso # (Auto) 0.1 10^3/uL (0.0-0.1) 09/06/24 18:04 Nucleated RBC % (auto) 0 % 09/06/24 18:04 Nucleated RBCs # 0.0 /100WBC 09/06/24 18:04 Sodium 142 mmol/L (136-145) 09/06/24 18:04 Potassium 4.3 mmol/L (3.5-5.1) 09/06/24 18:04 Chloride 109 mmol/L (98-107) H 09/06/24 18:04 Carbon Dioxide 22 mmol/L (22-29) 09/06/24 18:04 Anion Gap 15.3 (5-19) 09/06/24 18:04 BUN 17 mg/dL (8-23) 09/06/24 18:04 Creatinine 0.9 mg/dL (0.7-1.2) 09/06/24 18:04 GFR Calculation 84.7 mL/min (90-130) L 09/06/24 18:04 Glucose 117 mg/dL (65-115) H 09/06/24 18:04 Calculated Osmolality 297 mOsm/kg (285-295) H 09/06/24 18:04 Calcium 8.5 mg/dL (8.5-10.5) 09/06/24 18:04 Total Bilirubin 0.2 mg/dL (0.15-1.2) 09/06/24 18:04 AST 20 U/L (0-40) 09/06/24 18:04 ALT 29 U/L (0-41) 09/06/24 18:04 Alkaline Phosphatase 77 U/L (40-130) 09/06/24 18:04 NT-Pro-B Natriuret Pep 162 pg/mL (0-125) H 09/06/24 18:04 Total Protein 6.6 g/dL (6.6-8.7) 09/06/24 18:04 Albumin 3.8 g/dL (3.5-5.2) 09/06/24 18:04 Globulin 2.8 g/dL (1.3-4.6) 09/06/24 18:04 All radiology interpretation(s) finalized by discharge Discharge Plan Discharge Patient Disposition: Home Clinical Impression: Influenza A Condition: Stable Prescriptions: No Action tadalafil 10 mg tablet 10 mg PO DAILY PRN (Reason: Erectile Dysfunction) testosterone 20.25 mg/1.25 gram (1.62 %) gel in metered-dose pump 2 pump topical DAILY Rx Instructions: apply 1 pump amount over max area of EACH upper arm and shoulder Jardiance 10 mg tablet 10 mg PO DAILY Qty: 90 0RF cholecalciferol (vitamin D3) 1,250 mcg (50,000 unit) capsule 50,000 unit PO .weekly Qty: 12 0RF Rx Instructions: take one capsule weekly until next appt tamsulosin [Flomax] 0.4 mg capsule 0.4 mg PO DAILY 90 Days Qty: 90 1RF Linzess 145 mcg capsule 145 mcg PO DAILY PRN (Reason: constipation) 90 Days Qty: 90 1RF cyclobenzaprine 10 mg tablet 10 mg PO TID PRN (Reason: Pain) Qty: 90 0RF metoprolol tartrate 25 mg tablet 25 mg PO BID 30 Days Qty: 60 5RF ipratropium-albuterol 0.5 mg-3 mg(2.5 mg base)/3 mL solution for nebulization 3 ml inhalation QID PRN (Reason: wheezing) Qty: 90 0RF prednisone 10 mg tablets,dose pack See Rx Instructions PO PER PKG DIR Qty: 21 0RF Rx Instructions: PO PER PKG DIR levofloxacin 750 mg tablet 750 mg PO DAILY Qty: 7 0RF levothyroxine 88 mcg tablet See Rx Instructions .ROUTE .COMPLEX Qty: 90 3RF Dose Instruction: TAKE ONE TABLET BY MOUTH DAILY Rx Instructions: TAKE ONE TABLET BY MOUTH DAILY sacubitril-valsartan [Entresto] 49-51 mg tablet 1 tab PO BID Qty: 180 2RF aspirin 81 mg Tablet,Delayed Release (Dr/Ec) 81 mg PO DAILY albuterol sulfate 2.5 mg /3 mL (0.083 %) solution for nebulization 2.5 mg inhalation Q4H PRN (Reason: shortness of breath or wheezing) Qty: 90 0RF doxycycline hyclate 100 mg tablet 100 mg PO BID 7 Days Qty: 14 0RF Discharge Orders: Discharge ED (Routine); Ordered 09/06/24 Ordered By: Amarilis Richards Referrals: Brooke Escalante MD [Primary Care Provider] - Discharge Diet: Advance as tolerated Discharge Activity: Resume usual activity Patient Instructions: Influenza (ED) Print Language: Polish Coding Level of Care Code ED Counter Clerk [employer] for Jonah Argueta
[2024-09-06] MEDS: albuterol 2.5 mg/3 mL Neb 5 MG INHALATION (18:12)
[2024-09-06] MEDS: ipratropium-albuterol 3 mL Neb INHALATION (18:13)
[2024-09-06 18:29] LABS: Basophils # 0.1 10^3/uL (0.0-0.1); Basophils % 0.4 %; Eosinophils # 0.5 10^3/uL (0.0-0.8); Eosinophils % 4.2 %; Hematocrit 43.1 % (37-53); Lymphocytes # 1.2 10^3/uL (0.8-4.8); Lymphocytes % 9.7 %; Mean Corpuscular HGB Conc 30.4 g/dL (30-55); Mean Corpuscular Hemoglobin 26.6 pg (27-33); Mean Corpuscular Volume 87.4 fl (82-101); Mean Platelet Volume 9.9 fL (7.4-10.4); Monocytes # 0.9 10^3/uL (0.2-0.9); Monocytes % 6.7 %; Neutrophils # 10.09 10^3/uL (1.8-7.7); Neutrophils % 78.7 %; Nucleated Red Blood Cells % 0 %; Platelet Count 232 10^3/cmm (157-399); Red Blood Count 4.93 10^6/uL (3.85-5.65); Red Cell Distribution Width 14.9 % (12.1-15.1); White Blood Count 12.82 10^3/uL (3.29-11.43)
[2024-09-06 18:52] LABS: Alanine Aminotransferase 29 U/L (0-41); Albumin Level 3.8 g/dL (3.5-5.2); Alkaline Phosphatase 77 U/L (40-130); Anion Gap 15.3 (5-19); Aspartate Amino Transferase 20 U/L (0-40); Blood Urea Nitrogen 17 mg/dL (8-23); Calcium 8.5 mg/dL (8.5-10.5); Carbon Dioxide 22 mmol/L (22-29); Chloride 109 mmol/L (98-107); Creatinine Clr Calc Pharmacy 117.7278; Globulin 2.8 g/dL (1.3-4.6); Glomerular Filtration Rate 84.7 mL/min (90-130); Glucose 117 mg/dL (65-115); NT Pro B Type Natriuretic Pept 162 pg/mL (0-125); Osmolality Calculated 297 mOsm/kg (285-295); Potassium 4.3 mmol/L (3.5-5.1); Sodium 142 mmol/L (136-145); Total Bilirubin 0.2 mg/dL (0.15-1.2); Total Protein 6.6 g/dL (6.6-8.7)
== END 2024-09-06 19:37 | disposition home or self-care (01) ==
PROVIDERS: Emergency Provider Emergency Medicine; PCP Family Medicine
DX: J10.1 Influenza due to other identified influenza virus with other respiratory manifestations (principal); Z79.82 Long term (current) use of aspirin
CPT/HCPCS: 36415; 71045; 80053; 83880; 85025; 93005; 94640; 99285; J7613

== ENCOUNTER 2024-09-11 06:50 | Emergency (ER) | payer MEDICARE, SELFPAY ==
--- NOTE | 2024-09-11 06:52 | ECG_ITS ---
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1960 Requested By: Amarilis Richards Order Number: [id number] Reading MD: BRENTON LINDSAY Measurements Intervals [place] Rate: 98 P: 58 CA: 166 QRS: -52 QRSD: 150 T: 85 QT: 372 QTc: 475 Interpretive Statements SINUS RHYTHM WITH FREQUENT SUPRAVENTRICULAR PREMATURE COMPLEXES LEFT AXIS DEVIATION [QRS AXIS < -30] LEFT BUNDLE BRANCH BLOCK [120+ ms QRS DURATION, 80+ ms Q/S IN V1/V2, 85+ ms R IN I/aVL/V5/V6] Compared to ECG 09/06/2024 17:06:08 Left bundle-branch block now present Intraventricular conduction delay no longer present Electronically Signed On 09-12-2024 18:08:45 CDT by BRENTON LINDSAY [id number]
--- NOTE | 2024-09-11 06:53 | XRR_ITS ---
PROCEDURE INFORMATION: Exam: XR Chest Exam date and time: 09/11/2024 7:30 AM Age: 64 years old Clinical indication: Shortness of breath; Additional info: SOB TECHNIQUE: Imaging protocol: Radiologic exam of the chest. Views: 1 view. COMPARISON: CR (CHEST, ) 09/06/2024 5:58 PM FINDINGS: Lungs: Unremarkable. No consolidation. Pleural spaces: Unremarkable. No pleural effusion. No pneumothorax. Heart/Mediastinum: Unremarkable. No cardiomegaly. Bones/joints: Unremarkable. XR/XR chest 1V portable [id number] IMPRESSION: No acute findings.
[2024-09-11 06:58] VITALS: BP 145/101; PULSE 115; RESP 19; TEMP 36.4; O2SAT 95; BMI 41.2
[2024-09-11 07:16] VITALS: PULSE 74; RESP 18; O2SAT 94
--- NOTE | 2024-09-11 07:18 | ED_ITS ---
HPI - SOB/Dyspnea 2 General: Chief Complaint: Shortness of Breath/Dyspnea Stated Complaint: sob Time Seen by Provider: 09/11/24 06:54 Source: patient Mode of arrival: ambulatory Limitations: no limitations History of Present Illness: HPI Narrative: 64-year-old male who states he needs aaliyah gnosed with flu little over a week ago. He states he had cough congestion wheezing. He has been seen twice he is currently on steroids and Levaquin he is been using breathing treatments as well. Patient n denies any fever states been having trouble sleeping due to his cough. Associated symptoms: Deny abdominal pain, chest pain, fever(s), nausea or vomiting Related Data Home Medications ?Medication ?Instructions ?Recorded ?Confirmed aspirin 81 mg tablet,delayed 81 mg PO DAILY 09/10/21 0 09/11/24 release tadalafil 10 mg tablet 10 mg PO DAILY PRN Erectile 04/04/24 09/11/24 Dysfunction testosterone 2 pump topical DAILY 4 09/11/24 ephedrine HCl 12.5 mg tablet 12.5 mg PO Q4H 09/11/24 0 09/11/24 (Primatene) guaifenesin 1,200 mg tablet, 1,200 mg PO Q12H 09/11/24 09/11/24 extended release 12 hr (Mucinex) losartan 100 mg tablet 100 mg PO DAILY 09/11/24 Previous Rx's ?Medication ?Instructions ?Recorded cholecalciferol (vitamin D3) 1,250 50,000 unit PO .cathryn castellanostrini #12 caps 07/27/23 mcg (50,000 unit) capsule levothyroxine 88 mcg tablet See Rx Instructions .Route 02/18/24 .COMPLEX #90 tabs cyclobenzaprine 10 mg tablet 10 mg PO TID PRN Pain #90 tabs 03/14/24 metoprolol tartrate 25 mg tablet 25 mg PO BID 30 days #60 tabs 06/09/24 empagliflozin 10 mg tablet 10 mg PO DAILY #90 tabs 02/20 (Jardiance) albuterol sulfate 2.5 mg/3 mL 2.5 mg (3 mL) inhalation Q4H PRN 09/03/24 (0.083 %) solution for nebulization shortness of breat h or wheezing #90 mL ipratropium 0.5 mg-albuterol 3 mg 3 ml inhalation QID PRN wheezing 09/06/24 (2.5 mg base)/3 mL nebulization #90 mL soln levofloxacin 750 mg tablet 750 mg PO DAILY #7 tabs 05/23 prednisone 10 mg tablets in a dose See Rx Instructions PO PER PKG DIR 09/06/24 pack #21 ea Allergies Allergy/AdvReac Type Severity Reaction Status Date / Time No Known Allergies Allergy Verified 09/06/24 13:17 Review of Systems 2 Const: Denies: fever(s), chills, body aches or change in appetite ENMT: Denies: throat pain or dental pain Card: Denies: chest pain Resp: Reports: dyspnea, non-productive cough and wheezing GI: Denies: abdominal pain, nausea, vomiting or diarrhea Musc: Denies: neck pain or back pain Skin/Breast: Denies: rash Neuro: Denies: headache(s) PFSH ED 2 PFSH: Medical History Gout Surgical History Hx of total thyroidectomy History of angioplasty History of esophagogastroduodenoscopy (EGD) History of colonoscopy Family History Other CAD (coronary artery disease) Hyperlipidemia Hypertension Stroke Social History Smoking and tobacco/nicotine status: never used tobacco/nicotine Second hand smoke exposure: No Alcohol intake: unknown Substance/Drug Use: never Adopted: No Lives independently: Yes Household members: spouse Housing: House Marital status: Number of children: 2 Number of grandchildren: 9 Highest education level completed: High School Graduate service: No Current occupational status: retired Pets and animals: Yes Current gender identity: Male Physical Exam 2 Const: COMMON NORMALS: no acute distress, patient oriented x3 and healthy appearing HENMT: COMMON NORMALS: normocephalic and atraumatic HEAD & SCALP: n ormocephalic and atraumatic Eye: COMMON NORMALS: conjunctivae normal CONJUNCTIVA: Yes conjunctivae normal Neck/C-Spine: COMMON NORMALS: full ROM and supple Chest: COMMONS NORMALS: normal inspection of the chest and normal palpation of entire chest wall Resp: COMMON NORMALS: normal respiratory effort, No retractions and No use of accessory muscles AUSCULTATION: wheezes Cardio: COMMON NORMALS: regular rate, regular rhythm and No murmurs present (Cardio) RATE: regular rate RHYTHM: regular rhythm Extremity: COMMON NORMALS: normal to inspection and full ROM Neuro: COMMON NORMALS: patient oriented x3, moves all extremities and no focal motor deficits Psych: COMMON NORMALS: mental status grossly normal, Normal thought process present and cooperative THOUGHT PROCESS: Normal thought process present Skin: COMMON NORMALS: no rashes or lesions noted and no wounds GENERAL SKIN EXAM: no rashes or lesions noted Course 2 Vital Signs: Vital signs: Vital Signs Temperature 97.6 F 09/11/24 06:58 Pulse Rate 101 H 09/11/24 08:14 Respiratory Rate 18 09/11/24 07:16 Blood Pressure 155/87 09/11/24 08:14 Pulse Oximetry 95 09/11/24 08:14 Oxygen Delivery Me thod Room Air 09/11/24 08:14 MDM - SOB/Dyspnea Medical Decision Making Patient presents here with cough congestion did recently have the flu likely has a bronchitis feels improved after breathing treatments has no hypoxia CT is normal no pneumonia he is to continue his steroids and breathing treatments he is stable for discharge. Medical Records I reviewed the patient's medical records. Lab Data I reviewed the patient's lab results. 09/11/24 07:14 09/11/24 07:14 Labs/Radiology: Radiology Impressions Chest X-Ray 09/11/24 06:53 IMPRESSION: No acute findings. Chest CTA 09/11/24 07:46 IMPRESSION: 1. No pulmonary embolus detected though ability to evaluate for branch vessel pulmonary emboli is limited by motion artifact 2. No definite infiltrates. Patient does have bronchial wall thickening and mucous plugging in lower lobe bronchi. There also appears to be evidence for bronchomalacia 3. Interval increase in mediastinal and hilar adenopathy when compared with the prior 4. Negative for aortic aneurysm. 5. Coronary artery calcification 6. Enlarged thyroid gland with several nodules. Follow-up with ultrasound is recommended Laboratory Results WBC 16.26 10^3/uL (3.29-11.43) H 09/11/24 07:14 RBC 4.86 10^6/uL (3.85-5.65) 09/11/24 07:14 Hgb 13.10 g/dL (11.27-16.99) 09/11/24 07:14 Hct 40.8 % (37-53) 09/11/24 07:14 MCV 84.0 fl (82-101) 09/11/24 07:14 MCH 27.0 pg (27-33) 09/11/24 07:14 MCHC 32.1 g/dL (30-55) 09/11/24 07:14 RDW 14.6 % (12.1-15.1) 09/11/24 07:14 Plt Count 183 10^3/cmm (157-399) 09/11/24 07:14 MPV 9.7 fL (7.4-10.4) 09/11/24 07:14 Neut % (Auto) 59.8 % 09/11/24 07:14 Lymph % (Auto) 23.1 % 09/11/24 07:14 [place] % (Auto) 10.2 % 09/11/24 07:14 Eos % (Auto) 5.7 % 09/11/24 07:14 Baso % (Auto) 0.6 % 09/11/24 07:14 Neut # (Auto) 9.74 10^3/uL (1.8-7.7) H 09/11/24 07:14 Lymph # (Auto) 3.8 10^3/uL (0.8-4.8) 09/11/24 07:14 [place] # (Auto) 1.7 10^3/uL (0.2-0.9) H 09/11/24 07:14 Eos # (Auto) 0.9 10^3/uL (0.0-0.8) H 09/11/24 07:14 Baso # (Auto) 0.1 10^3/uL (0.0-0.1) 09/11/24 07:14 Nucleated RBC % (auto) 0 % 09/11/24 07:14 Nucleated RBCs # 0.0 /100WBC 09/11/24 07:14 Sodium 140 mmol/L (136-145) 09/11/24 07:14 Potassium 3.3 mmol/L (3.5-5.1) L 09/11/24 07:14 Chloride 105 mmol/L (98-107) 09/11/24 07:14 Carbon Dioxide 25 mmol/L (22-29) 09/11/24 07:14 Anion Gap 13.3 (5-19) 09/11/24 07:14 BUN 14 mg/dL (8-23) 09/11/24 07:14 Creatinine 0.9 mg/dL (0.7-1.2) 09/11/24 07:14 GFR Calculation 84.7 mL/min (90-130) L 09/11/24 07:14 Glucose 107 mg/dL (65-115) 09/11/24 07:14 Calculated Osmolality 291 mOsm/kg (285-295) 09/11/24 07:14 Calcium 9.0 mg/dL (8.5-10.5) 09/11/24 07:14 Total Bilirubin 0.4 mg/dL (0.15-1.2) 09/11/24 07:14 AST 17 U/L (0-40) 09/11/24 07:14 ALT 24 U/L (0-41) 09/11/24 07:14 Alkaline Phosphatase 63 U/L (40-130) 09/11/24 07:14 NT-Pro-B Natriuret Pep 495 pg/mL (0-125) H 09/11/24 07:14 Total Protein 6.4 g/dL (6.6-8.7) L 09/11/24 07:14 Albumin 3.7 g/dL (3.5-5.2) 09/11/24 07:14 Globulin 2.7 g/dL (1.3-4.6) 09/11/24 07:14 All radiology interpretation(s) finalized by discharge Discharge Plan Discharge Patient Disposition: Home Clinical Impression: Bronchitis, Influenza Condition: Stable Prescriptions: No Action tadalafil 10 mg tablet 10 mg PO DAILY PRN (Reason: Erectile Dysfunction) testosterone 20.25 mg/1.25 gram (1.62 %) gel in metered-dose pump 2 pump topical DAILY Rx Instructions: apply 1 pump amount over max area of EACH upper arm and shoulder Jardiance 10 mg tablet 10 mg PO DAILY Qty: 90 0RF cholecalciferol (vitamin D3) 1,250 mcg (50,000 unit) capsule 50,000 unit PO .weekly Qty: 12 0RF Rx Instructions: take one capsule weekly until next appt cyclobenzaprine 10 mg tablet 10 mg PO TID PRN (Reason: Pain) Qty: 90 0RF metoprolol tartrate 25 mg tablet 25 mg PO BID 30 Days Qty: 60 5RF ipratropium-albuterol 0.5 mg-3 mg(2.5 mg base)/3 mL solution for nebulization 3 ml inhalation QID PRN (Reason: wheezing) Qty: 90 0RF prednisone 10 mg tablets,dose pack See Rx Instructions PO PER PKG DIR Qty: 21 0RF Rx Instructions: PO PER PKG DIR levofloxacin 750 mg tablet 750 mg PO DAILY Qty: 7 0RF levothyroxine 88 mcg tablet See Rx Instructions .ROUTE .COMPLEX Qty: 90 3RF Dose Instruction: TAKE ONE TABLET BY MOUTH DAILY Rx Instructions: TAKE ONE TABLET BY MOUTH DAILY aspirin 81 mg Tablet,Delayed Release (Dr/Ec) 81 mg PO DAILY albuterol sulfate 2.5 mg /3 mL (0.083 %) solution for nebulization 2.5 mg inhalation Q4H PRN (Reason: shortness of breath or wheezing) Qty: 90 0RF losartan 100 mg tablet 100 mg PO DAILY guaifenesin [Mucinex] 1,200 mg Tablet Extended Release 12hr 1,200 mg PO Q12H Primatene 12.5 mg Tablet 12.5 mg PO Q4H Discharge Orders: Discharge ED (Routine); Ordered 09/11/24 Ordered By: Amarilis Richards Referrals: Brooke Escalante MD [Primary Care Provider] - Discharge Diet: Advance as tolerated Discharge Activity: Resume usual activity Patient Instructions: Acute Bronchitis (ED) Print Language: Armenian Coding Level of Care Code ED Bakery Products Checker for Jonah Argutea
[2024-09-11 07:19] LABS: Basophils # 0.1 10^3/uL (0.0-0.1); Basophils % 0.6 %; Eosinophils # 0.9 10^3/uL (0.0-0.8); Eosinophils % 5.7 %; Hematocrit 40.8 % (37-53); Lymphocytes # 3.8 10^3/uL (0.8-4.8); Lymphocytes % 23.1 %; Mean Corpuscular HGB Conc 32.1 g/dL (30-55); Mean Platelet Volume 9.7 fL (7.4-10.4); Monocytes # 1.7 10^3/uL (0.2-0.9); Monocytes % 10.2 %; Neutrophils # 9.74 10^3/uL (1.8-7.7); Neutrophils % 59.8 %; Nucleated Red Blood Cells % 0 %; Platelet Count 183 10^3/cmm (157-399); Red Blood Count 4.86 10^6/uL (3.85-5.65); Red Cell Distribution Width 14.6 % (12.1-15.1); White Blood Count 16.26 10^3/uL (3.29-11.43)
[2024-09-11] MEDS: ketorolac 30 mg/mL INJ 15 MG IVP (07:23)
[2024-09-11] MEDS: ipratropium-albuterol 3 mL Neb INHALATION (07:27)
--- NOTE | 2024-09-11 07:46 | CTR_ITS ---
PROCEDURE INFORMATION: Exam: CTA Chest With Contrast Exam date and time: 09/11/2024 7:56 AM Age: 64 years old Clinical indication: Shortness of breath; Additional info: SOB TECHNIQUE: Imaging protocol: Computed tomographic angiography of the chest with contrast. Exam focused on the arteries. 3D rendering (Not supervised by radiologist): MIP and/or 3D reconstructed images were created by the technologist. Radiation optimization: All CT scans at this facility use at least one of these dose optimization techniques: automated exposure control; mA and/or kV adjustment per patient size (includes targeted exams where dose is matched to clinical indication); or iterative reconstruction. Contrast material: OMNIPAQUE 350; Contrast volume: 81 ml; Contrast route: INTRAVENOUS (IV); COMPARISON: CT angio chest PE protcl [id number] 09/10/2021 5:41 PM RADIATION DOSE METRICS: Total DLP (mGy-cm): 530.65 FINDINGS: Study is degraded by motion artifact which limits ability to detect branch vessel pulmonary emboli Pulmonary arteries: There is no pulmonary embolus detected in the main pulmonary trunk.. No pulmonary embolus is detected in the main right or left pulmonary artery . No pulmonary embolus is detected in branch vessels Aorta: There are atherosclerotic changes involving the aorta without aneurysm or dissection. Thyroid: The thyroid gland is enlarged with the nodules including a prominently calcified nodule in the right lobe this appears to have been present on previous study from 2021. Follow-up recommended with ultrasound. Enlarged thyroid extends into the superior mediastinum Lungs: There is AP narrowing of the mainstem bronchi suggesting bronchomalacia. There is wall thickening and inspissated mucus in bilateral lower lobe bronchi. There are no definite infiltrates.. Pleural spaces: Unremarkable. No pneumothorax. No pleural effusion. Heart: Unremarkable. No cardiomegaly. No pericardial effusion. Coronary arteries: There is coronary artery calcification. Lymph nodes: There is mediastinal and hilar adenopathy which was present previously but appears slightly increased compared with the prior study from 2021. For example a lower pretracheal lymph node is measured on series 6, image 172 at 2.8 x 0.9 cm. A right hilar lymph node is measured on image 201 2.8 x 1.8 cm. Diaphragm: There is a small hiatal hernia. Bones/joints: There are old healed left-sided rib fractures. There are degenerative changes in the spine Soft tissues: Unremarkable. CT/CT angio chest PE protcl [id number] IMPRESSION: 1. No pulmonary embolus detected though ability to evaluate for branch vessel pulmonary emboli is limited by motion artifact 2. No definite infiltrates. Patient does have bronchial wall thickening and mucous plugging in lower lobe bronchi. There also appears to be evidence for bronchomalacia 3. Interval increase in mediastinal and hilar adenopathy when compared with the prior 4. Negative for aortic aneurysm. 5. Coronary artery calcification 6. Enlarged thyroid gland with several nodules. Follow-up with ultrasound is recommended
[2024-09-11 07:51] LABS: Alanine Aminotransferase 24 U/L (0-41); Albumin Level 3.7 g/dL (3.5-5.2); Alkaline Phosphatase 63 U/L (40-130); Anion Gap 13.3 (5-19); Aspartate Amino Transferase 17 U/L (0-40); Blood Urea Nitrogen 14 mg/dL (8-23); Carbon Dioxide 25 mmol/L (22-29); Chloride 105 mmol/L (98-107); Creatinine Clr Calc Pharmacy 117.7278; Globulin 2.7 g/dL (1.3-4.6); Glomerular Filtration Rate 84.7 mL/min (90-130); Glucose 107 mg/dL (65-115); NT Pro B Type Natriuretic Pept 495 pg/mL (0-125); Osmolality Calculated 291 mOsm/kg (285-295); Potassium 3.3 mmol/L (3.5-5.1); Sodium 140 mmol/L (136-145); Total Bilirubin 0.4 mg/dL (0.15-1.2); Total Protein 6.4 g/dL (6.6-8.7)
[2024-09-11] MEDS: iohexol 350 mg/mL 500 mL Btl (per mL) IV (08:00)
[2024-09-11 08:14] VITALS: BP 155/87; PULSE 101; O2SAT 95
[2024-09-11 08:49] VITALS: BP 166/89; PULSE 96; O2SAT 92
== END 2024-09-11 08:50 | disposition home or self-care (01) ==
PROVIDERS: Emergency Provider Emergency Medicine; PCP Family Medicine
DX: J11.1 Influenza due to unidentified influenza virus with other respiratory manifestations (principal); J40 Bronchitis, not specified as acute or chronic; Z79.82 Long term (current) use of aspirin
CPT/HCPCS: 36415; 71045; 71275; 80053; 83880; 85025; 93005; 94640; 96374; 99285; J1885; J9999

== ENCOUNTER 2024-10-11 20:09 | Inpatient (IN) | payer MEDICARE, SELFPAY ==
[2024-10-11] VITALS (17 sets, daily range): BP systolic 101–152; BP diastolic 57–90; PULSE 73–111; RESP 14; O2SAT 99–100
--- NOTE | 2024-10-11 20:14 | XRR_ITS ---
PROCEDURE INFORMATION: Exam: XR Chest Exam date and time: 10/11/2024 9:10 PM Age: 64 years old Clinical indication: Shortness of breath; Additional info: SOB ett placement TECHNIQUE: Imaging protocol: Radiologic exam of the chest. Views: 1 view. COMPARISON: CT angio chest PE protcl [id number] 09/11/2024 7:56 AM FINDINGS: Airway: Unclear position of the endotracheal tip. Can not exclude the tip being at the level of the alicja. Consider repeat imaging. Lungs: Unremarkable. No consolidation. Pleural spaces: Unremarkable. No pleural effusion. No pneumothorax. Heart/Mediastinum: Unremarkable. No cardiomegaly. Bones/joints: Unremarkable. XR/XR chest 1V portable [id number] IMPRESSION: As above.
--- OUTSIDE RECORDS SUMMARY | 2024-10-11 20:15 | XMS_ITS ---
Author Organization [facility] Address [address] [place] [address] Care Team Providers Care Superintendent Electric Power Name Role Phone BRANNONSAMEER CHANDLER Unavailable [phone] REASON FOR VISIT ED Encounters Encounter Location Date Provider Diagnosis [facility] [address] [facility] [place] [address] 11/10/2023 SAMEER BRANNON Plan Of Treatment No Information Progress Notes * Chaparrita MAYOB:1960 (64 yo M)Acc No.[id number]:11/10/2023 Progress Notes Patient:?Surinder MAY Provider:?Sameer Brannon MD :1960???Age:63 Y???Sex:Male Mike e:11/10/2023 Address:[address] [id number] Subjective: * Chief Complaints: * ???1. ED. * Medical History:? Objective: * Vitals:? Assessment: Plan: * Treatment: * Billing Information: * Visit Code:? * Procedure Codes:? * Electronic signature of SKYLAR BRANNON MD on 10/11/2024 at 08:14 PM CDT Sign off status: Pending * Provider:?Sameer Brannon MD Date:? Generated for Farhat erickson/Elba/eTransmitting on:?10/11/2024 08:14 PM CDT
--- OUTSIDE RECORDS SUMMARY | 2024-10-11 20:15 | XMS_ITS ---
Author Organization [facility] Address [address] [place] [address] Care Team Providers Care Pastry Finisher Name Role Phone Pat Nicolas Primary Care Provider Adam Avalos [phone] Encounters Encounter Location Date Provider Diagnosis [facility] [address] [place] [address] [facility] [address] [place] [address] 09/28/2024 Adam Maddox Testicular 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 Assessments Encounter Date Diagnosis (ICD Code) Assessment Notes Treatment Notes Treatment Clinical Notes Section Notes 09/28/2024 Testicular hypofunction (ICD-10 - E29.1) Plan Of Treatment Future Test Test Name Order Date CBC w\ Auto Diff [id number] 10/06/2024 Comprehensive Metabolic Panel (CMP) 8005 3 10/06/2024 Testosterone Total 03835 10/06/2024 CBC w\ Auto Diff 05597 02/27/2025 Comprehensive Metabolic Panel (CMP) 8005 3 02/27/2025 Estradiol Level 54546 02/27/2025 Testosterone Total 22323 02/27/2025 Next Appt Details Provider Name:Adam feliz, 04/04/2025 01:00:00 PM, [address], [place], [address], Progress Notes * SHARAD MAY LDOB: (64 yo M)Acc No.[id number]:09/28/2024 Patient:?SHARAD MAY :1960???Age:64 Y???Sex:Male Address:[address] [place], [address] Subjective: * Chief Complaints: * ??? * Medical History:? * Surgical History:? * Hospitalization/Major Diagno stic Procedure:? * Medications:? Objective: * Vitals:? * Physical Examination:? Assessment: * Assessment: 1.?Testicular hypofunction - E29.1??? Plan: * Treatment: * Procedure Codes:? * true * Date:? Generated for Farhat erickson/Elba/eTreginasmitting on:?10/11/2024 08:14 PM CDT
--- OUTSIDE RECORDS SUMMARY | 2024-10-11 20:15 | XMS_ITS | Patient Health Record ---
Author Organization [facility] Address [address] [place] [address] Care Team Providers Care Joint Machine Operator Name Role Phone Pat Nicolas Primary Care Provider UnavailAdam Hurst Unavailable [phone] Migration, Provider Unavailable Unavailable Allergies Allergen (clinical drug ingredient) Drug/Non Drug Allergy documented on EMR Reaction Allergy Type Onset Date Status No Known Drug Allergy Unknown Drug Allergy Active Reason For Referral No Information Medications Medication SIG (Take, Route, Frequency, Duration) Notes Start Date End Date Status Metoprolol Tartrate 25 MG Oral for 90 Days Active Tadalafil 5 MG 1 Tablet by mouth On ce a day for 30 days PRN Active Testosterone 20.25 MG/ACT (1.62%) Use 3 pumps on the skin Transdermal Daily for 30 days 02/17/2024 Active Losartan Potassium 100 MG TAKE ONE TABLE T BY MOUTH DAILY Oral for 30 Days Active Tadalafil 5 MG 1 tablet by mouth On ce a day for 30 days 09/28/2024 03/27/2025 Active Levothyroxine Sodium 88 MCG 1 tablet in the morning on an empty stomach Orally Once a day for 30 day(s) 02/17/2024 Active Social History Tobacco Use: Social History Observation Description Date Details (start date - stop date) Never Smoker NA - NA Tobacco Control (Standard) Question Answer Notes Tobacco use: Nonsmoker Problems Problem Type SNOMED Code ICD Code Onset Dates Problem Status W/U Status Risk Notes Problem [id number] Testicular hypofunction (E29.1) Active confirmed Problem Erectile dysfunction (disorder) (565930865) Male erectile dysfunction, unspecified (N52.9) Active confirmed Vital Signs Heart Rate 88 /min 09/28/2024 Temperature 98.64 degrees Fahrenheit 09/28/2024 Height-cm 182.88 cm 09/28/2024 Blood pressure diastolic 81 mm Hg 09/28/2024 Weight-kg 133.81 kg 09/28/2024 Height 72.00 in 09/28/2024 Blood pressure systolic 134 mm Hg 09/28/2024 Weight 295 lbs 09/28/2024 BMI 40 kg/m2 09/28/2024 Encounters Encounter Location Date Provider Diagnosis [facility]Facility 0 0 12/19/2023 Provider Migration [facility] 0 0 12/20/2023 Provider Migration [facility] [address] [place] [address] 02/11/2024 Adam Maddox Testicular 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 [facility] [address] [place] [address] [address] [place] [address] 02/17/2024 Adam Maddox Testicular 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 and Low testosterone R79.89 [facility] [address] [place] [address] [address] [place] [address] 02/17/2024 Adam Maddox [facility] [address] [place] [address] 02/18/2024 Adam Maddox [facility] [address] [place] [address] [address] [place] [address] 02/18/2024 Adam Maddox [facility] [address] [place] [address] [address] [place] [address] 2024 Adam Maddox [facility] [address] [place] [address] [address] [place] [address] 07/12/2024 Adam Maddox [facility] [address] [place] [address] 07/12/2024 Adam Maddox Testicular 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 [facility] [address] [place] [address] [address] [place] [address] 07/29/2024 Adam Maddox Testicular 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 [facility] [address] [place] [address] 07/29/2024 Adam Maddox Testicular 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 [facility] [address] [place] [address] 07/29/2024 Adam Maddox Testicular 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 [facility] [address] [place] [address] [address] [place] [address] 09/28/2024 Adam Maddox [facility] [address] [place] [address] [address] [place] [address] 09/28/2024 Adam Maddox Testicular 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 [facility] [address] [place] [address] 10/11/2024 Adam Maddox [facility] [address] [place] [address] 02/17/2024 Adam Maddox Low testosterone R79.89 ; Asymptomatic microscopic hematuria R31.21 and Male erectile dysfunction, unspecified N52.9 [facility] [address] [place] [address] [address] [place] [address] 09/28/2024 Adam Maddox Low testosterone R79.89 and Male erectile dysfunction, unspecified N52.9 Migrated_Facility 0 0 10/13/2023 Provider Migration Assessments Encounter Date Diagnosis (ICD Code) Assessment Notes Treatment Notes Treatment Clinical Notes Section Notes 02/17/2024 Asymptomatic microscopic hematuria (ICD-10 - R31.21) 02/17/2024 Low testosterone (ICD-10 - R79.89) 02/17/2024 Testicular hypofunction (ICD-10 - E29.1) 07/12/2024 Testicular hypofunction (ICD-10 - E29.1) 07/29/2024 Testicular hypofunction (ICD-10 - E29.1) 07/29/2024 Testicular hypofunction (ICD-10 - E29.1) 07/29/2024 Testicular hypofunction (ICD-10 - E29.1) 09/28/2024 Male erectile dysfunction, unspecified (ICD-10 - N52.9) 09/28/2024 Low testosterone (ICD-10 - R79.89) 09/28/2024 Testicular hypofunction (ICD-10 - E29.1) 02/11/2024 Testicular hypofunction (ICD-10 - E29.1) 02/17/2024 Male erectile dysfunction, unspecified (ICD-10 - N52.9) 02/17/2024 Low testosterone (ICD-10 - R79.89) 02/17/2024 Other Increase dose to 3 pumps a day. 1.62% testosterone. with cbc, cmp, estradiol, testosterone. Continue SAMARA start tadalafil 5mg daily. 09/28/2024 Other Cbc, cmp, testosterone in 1-2 weeks and show me 6 months with cbc, cmp testosteron, estradiadol. increase tadalafil to 5mg daily continue testosterone gel 1.62% 3 pumps daily. Plan Of Treatment Pending Test Test Name Order Date CBC w\ Auto Diff 02317 02/11/2024 CBC w\ Auto Diff 08252 07/12/2024 CBC w\ Auto Diff 18712 07/29/2024 CBC w\ Auto Diff 80865 07/29/2024 CBC w\ Auto Diff 83004 07/29/2024 Comprehensive Metabolic Panel (CMP) 8005 3 07/29/2024 Comprehensive Metabolic Panel (CMP) 8005 3 07/29/2024 Comprehensive Metabolic Panel (CMP) 8005 3 07/29/2024 Comprehensive Metabolic Panel (CMP) 8005 3 07/12/2024 Comprehensive Metabolic Panel (CMP) 8005 3 02/11/2024 Estradiol Level 60078 02/11/2024 Estradiol Level 54225 07/12/2024 Estradiol Level 86714 07/29/2024 Estradiol Level 70706 07/29/2024 Estradiol Level 90933 07/29/2024 Testosterone Total 94673 07/29/2024 Testosterone Total 39690 07/29/2024 Testosterone Total 10283 07/29/2024 Testosterone Total 26972 07/12/2024 Testosterone Total 51092 02/11/2024 Future Test Test Name Order Date CBC w\ Auto Diff 47095 03/29/2024 Comprehensive Metabolic Panel (CMP) 8005 3 03/29/2024 Estradiol Level 22621 03/29/2024 Testosterone Total 18871 03/29/2024 CBC w\ Auto Diff 96710 10/06/2024 Comprehensive Metabolic Panel (CMP) 8005 3 10/06/2024 Testosterone Total 24478 10/06/2024 Next Appt Details Provider Name:Adam feliz, 04/04/2025 01:00:00 PM, [address], [place], [address], Insurance Providers Payer Name Payer Address Payer Phone Subscriber Number Group Number Insured Name Patient Relationship to Insured Coverage Start Date Coverage End Date [employer] [place] Medicare Replacement [address] [place] [address] [id number] SHARAD MAY Self - patient is the insured Medical (General) History Medical History History ICD Code Testicular Hypofunction Thyroid HTN Surgical History Surgery Date(Month/Year) Thyroidectomy
--- OUTSIDE RECORDS SUMMARY | 2024-10-11 20:15 | XMS_ITS | Patient Health Record ---
Author Organization [facility] Address [address] [place] [address] Care Team Providers Care Night Patrol Inspector Name Role Phone DISHA ROBBINS [phone] Reason For Referral No Information Plan Of Treatment No Information
--- OUTSIDE RECORDS SUMMARY | 2024-10-11 20:15 | XMS_ITS ---
Author Organization [facility] Address [address] [place] [address] Care Team Providers Care School Childcare Attendant Name Role Phone NicolasPat Primary Care Provider Adam Avalos [phone] Encounters Encounter Location Date Provider Diagnosis [facility] [address] [place] [address] 10/11/2024 Adam Maddox Plan Of Treatment Next Appt Details Provider Name:Adam feliz, 04/04/2025 01:00:00 PM, [address], [place], [address], Progress Notes * SHARAD MAY LDOB: (64 yo M)Acc No.[id number]:10/11/2024 Patient:?SHARAD MAY :1960???Age:64 Y???Sex:Male Address:[place], [address] Subjective: * Chief Complaints: * ??? * Medical History:? * Surgical History:? * Hospitalization/Major Diagno stic Procedure:? * Medications:? Objective: * Vitals:? * Physical Examination:? Assessment: Plan: * Treatment: * Procedure Codes:? * true * Date:? Generated for Corbini georgina/Fajoelg/eTransmitting on:?10/11/2024 08:15 PM CDT
--- OUTSIDE RECORDS SUMMARY | 2024-10-11 20:15 | XMS_ITS ---
Author Organization [facility] Address [address] [place] [place] [address] Care Team Providers Care Check Cashier Name Role Phone Pat Nicolas Primary Care Provider Adam Avalos [phone] Encounters Encounter Location Date Provider Diagnosis [facility] [address] [place] [address] 09/28/2024 Adam Maddox Plan Of Treatment Next Appt Details Provider Name:Adam feliz, 04/04/2025 01:00:00 PM, [address], [place], [address], Progress Notes * SHARAD MAY LDOB: (64 yo M)Acc No.[id number]:09/28/2024 Patient:?SHARAD MAY :1960???Age:64 Y???Sex:Male Address:[address], [address] * true * Date:? Generated for Printi ng/Elba/eTransmitting on:?10/11/2024 08:14 PM CDT
[2024-10-11] MEDS: midazolam hcl 100 MG/100 ML BAG IV (20:45)
[2024-10-11] MEDS: fentaNYL 1,000 MCG/100 ML BAG 10 MCG IV (20:56)
[2024-10-11] MEDS: dexmedeTOMIDine 0.9 % NaCL 400 MCG/100 ML PREMIX IV (21:05)
[2024-10-11 21:07] LABS: Basophils % 0.2 %; Eosinophils # 0.1 10^3/uL (0.0-0.8); Eosinophils % 0.6 %; Hematocrit 41.8 % (37-53); Lymphocytes # 0.8 10^3/uL (0.8-4.8); Lymphocytes % 4.5 %; Mean Corpuscular HGB Conc 30.6 g/dL (30-55); Mean Corpuscular Hemoglobin 27.5 pg (27-33); Mean Corpuscular Volume 89.7 fl (82-101); Mean Platelet Volume 10.1 fL (7.4-10.4); Monocytes # 1.1 10^3/uL (0.2-0.9); Monocytes % 5.7 %; Neutrophils # 16.42 10^3/uL (1.8-7.7); Neutrophils % 88.4 %; Nucleated Red Blood Cells % 0 %; Platelet Count 207 10^3/cmm (157-399); Red Blood Count 4.66 10^6/uL (3.85-5.65); Red Cell Distribution Width 15.9 % (12.1-15.1); White Blood Count 18.57 10^3/uL (3.29-11.43)
--- NOTE | 2024-10-11 21:10 | P.HP_ITS ---
Providers/Chief Complaint 2 Admitting Physician: Ashlie Lloyd MD Chief Complaint: resp dis ICU 5 History of Present Illness Surinder Rebolledo is a 64 year old male with a past medical history of CHF, COPD, hypertension, prediabetes, who is a transfer from [facility] for acute respiratory failure. Patient was at [facility] September 21, was intubated and transferred to [facility], due to concern for influenza, was eventually extubated, EMS was called due to complaints of shortness of breath on arrival to the to [facility] noted on pulse ox his O2 sats were in the 70s, he was placed on oxygen, on 4 L to 75%, patient was intubated due to acute respiratory failure, EKG showed atrial flutter 2-1 conduction, given 20 mg of Cardizem, he was found to have a PE on CTA, was started on heparin drip, currently patient is intubated, sedated on mechanical ventilation, when family is at bedside Review of Systems 2 Resp: Reports: dyspnea Medications/Allergies Home Medications ?Medication ?Instructions ?Recorded ?Confirmed ?Last Taken ?Type aspirin 81 mg tablet,delayed 81 mg PO DAILY 09/10/21 0 09/11/24 09/10/24 History release cholecalciferol (vitamin D3) 1,250 50,000 unit PO .cathryn nickerson #12 caps 07/27/23 09/11/24 09/04/24 Rx mcg (50,000 unit) capsule levothyroxine 88 mcg tablet See Rx Instructions .Route 02/18/24 09/11/24 09/11/24 05:00 Rx .COMPLEX #90 tabs cyclobenzaprine 10 mg tablet 10 mg PO TID PRN Pain #90 tabs 03/14/24 09/11/24 Unknown Rx tadalafil 10 mg tablet 10 mg PO DAILY PRN Erectile 04/04/24 09/11/24 Unknown History Dysfunction testosterone 2 pump topical DAILY 4 09/11/24 06/26/24 20:00 History empagliflozin 10 mg tablet 10 mg PO DAILY #90 tabs 02/2009/11/24 09/09/24 Rx (Jardiance) albuterol sulfate 2.5 mg/3 mL 2.5 mg (3 mL) inhalation Q4H PRN 09/03/24 09/11/24 Unknown Rx (0.083 %) solution for nebulization shortness of breat h or wheezing #90 mL levofloxacin 750 mg tablet 750 mg PO DAILY #7 tabs 05/2309/11/24 09/10/24 Rx prednisone 10 mg tablets in a dose See Rx Instructions PO PER PKG DIR 09/06/24 09/11/24 09/10/24 Rx pack #21 ea ephedrine HCl 12.5 mg tablet 12.5 mg PO Q4H 09/11/24 0 09/11/24 09/11/24 05:00 History (Primatene) guaifenesin 1,200 mg tablet, 1,200 mg PO Q12H 09/11/24 09/11/24 09/10/24 07:00 History extended release 12 hr (Mucinex) losartan 100 mg tablet 100 mg PO DAILY 09/11/2409/10/24 History albuterol sulfate 90 mcg/actuation 2 puff inhalation Q 6H PRN 09/14/24 Unknown Rx aerosol inhaler (Ventolin HFA) shortness of breath or wheezing #6.7 grams ipratropium 0.5 mg-albuterol 3 mg 3 ml inhalation QID PRN wheezing 09/14/24 Unknown Rx (2.5 mg base)/3 mL nebulization #90 mL soln metoprolol tartrate 25 mg tablet 25 mg PO BID 30 days #60 tabs 09/14/24 Unknown Rx Allergies Allergy/AdvReac Type Severity Reaction Status Date / Time No Known Allergies Allergy Verified 09/06/24 13:17 PFSH Acute 2 PFSH: Medical History Gout Surgical History Hx of total thyroidectomy History of angioplasty History of esophagogastroduodenoscopy (EGD) History of colonoscopy Family History Other CAD (coronary artery disease) Hyperlipidemia Hypertension Stroke Social History Smoking and tobacco/nicotine status: never used tobacco/nicotine Second hand smoke exposure: No Alcohol intake: unknown Substance/Drug Use: never Adopted: No Lives independently: Yes Household members: spouse Housing: House Marital status: Number of children: 2 Number of grandchildren: 9 Highest education level completed: High School Graduate service: No Current occupational status: retired Pets and animals: Yes Current gender identity: Male Vitals/I&O/Wt 10/11/24 10/11/24 10/11/24 06:59 14:59 22:59 Intake Total 0.35 / 0.35 Balance 0.35 / 0.35 Weight last 48 hrs Weight 131 kg Physical Exam 2 Const: COMMON NORMALS: no acute distress OTHER: Intubated, sedated on mechanical ventilation Eye: OTHER: Pupils are reactive to light, bilaterally Neck/C-Spine: COMMON NORMALS: no JVD Resp: COMMON NORMALS: normal respiratory effort, No retractions, No use of accessory muscles and clear to auscultation bilaterally AUSCULTATION: c rackles and wheezes Cardio: COMMON NORMALS: no JVD, regular rate, regular rhythm, S1 normal heart sound present and S2 normal heart sound present RATE: regular rate RHYTHM: regular rhythm HEART SOUNDS: S1 normal heart sound present and S2 normal heart sound present GI: COMMON NORMALS: Normal to inspection, nondistended, normoactive bowel sounds present, Soft to palpation and non-tender Extremity: COMMON NORMALS: no pedal edema Sepsis: Is patient septic: Yes Focused sepsis exam performed: Yes F ocused sepsis exam: DP PT pulses palpable, cap refill greater than 2 seconds, no mottling Date exam was performed: 10/11/24 Time exam was performed: 20:30 Data 10/11/24 20:45 10/11/24 20:45 Micro: Microbiology 10/11/24 20:40 Blood Culture - Preliminary Blood SPECIMEN COLLECTED 10/11/24 20:45 Blood Culture - Preliminary Blood SPECIMEN COLLECTED A&P Assessment and plan (1) Acute hypoxic respiratory failure: (2) COPD exacerbation: (3) Pulmonary embolism: (4) HTN (hypertension): Qualifiers: Hypertension type: primary hypertension Qualified Code(s): I10 - Essential (primary) hypertension (5) Morbid obesity with BMI of 40.0-44.9, adult: (6) Pre-diabetes: (7) Atrial flutter: (8) Sepsis: Plan Acute hypoxic respiratory failure - Secondary to pulmonary embolism - Secondary to COPD exacerbation - Concerns for pneumonia given leukocytosis, respiratory failure, recent hospitalization possible healthcare associate pneumonia Plan - Currently intubated, sedated on mechanical ventilation - Minimize tidal volume, minimize FiO2 - Spontaneous breathing trial - Fentanyl for sedation - Versed for sedation - Precedex for sedation - Vancomycin - Zosyn - Solu-Medrol 40 IV every 8 hours - Heparin drip - Cardiac echo -a1c, LDSS - Full code - Heparin drip for DVT prophylaxis Sepsis - Sepsis features met given leukocytosis, respiratory failure, concerns for infection pneumonia A-fib with RVR, currently converted to normal sinus rhythm, monitor Hypothyroidism, will have to confirm morning medications once pharmacy opens Full code Heparin drip for DVT prophylaxis PDMP PDMP Reviewed: Not Reviewed Attestations 2 Medical Necessity Statement*: Patient requires hospitalization, inpatient, greater than 2 midnights for acute hypoxic respiratory failure, secondary to pulmonary embolism, COPD, sepsis, pneumonia Coding Level of Care Code Critical Care >/= 30 minutes Critical care time (in minutes): 45 The high probability of a clinically significant, sudden or life threatening deterioration, as referenced in this documentation, required my full and direct attention, intervention and personal management. The critical care time shown is in addition to time spent performing any reported separately billable procedures and includes the following: [x] Data and vital sign review and interpretation [x ] Patient assessment, examination and intervention [x] Medication orders and management [x] Patient/Family updates as able [x] Care Coordination and Documentation. Diagnoses Acute hypoxic respiratory failure J96.01 COPD exacerbation J44.1 Pulmonary embolism I26.99 Primary hypertension I10 Hypertension type: primary hypertension Morbid obesity with BMI of 40.0-44.9, adult E66.01; Z68.41 Pre-diabetes R73.03 Atrial flutter I48.92 Sepsis A41.9
[2024-10-11 21:14] LABS: Troponin(5th) Baseline 42 ng/L (0-15)
[2024-10-11 21:16] LABS: Lactic Sepsis W/Reflex 1.9 mmol/L (0.5-2.2)
--- NOTE | 2024-10-11 21:17 | PC.NURSE ---
Versed drip brought by EMS wasted with Lisa Naranjo RN
[2024-10-11] MEDS: heparin 5,000 unit/mL INJ 1 mL IVP (21:22)
[2024-10-11] MEDS: methylPREDNISolone sod succ 40 mg/mL INJ IVP (21:22)
[2024-10-11] MEDS: pantoprazole 40 mg SDV IVP (21:22)
[2024-10-11] MEDS: piperacillin-tazobactam 3.375 GM in sodium chloride 0.9% (plus) 50 ML IV (21:27)
[2024-10-11] MEDS: heparin drip 25,000 UNIT/500 ML PREMIX 36 UNIT IV (21:27)
[2024-10-11 21:31] LABS: Estmated Average Glucose 140; Hemoglobin A1C 6.5 % (4.0-6.0)
[2024-10-11] MEDS: vancomycin 2,000 MG/400 ML PIGGYBACK 200 MG IV (21:33)
[2024-10-11 21:42] LABS: NT Pro B Type Natriuretic Pept 396 pg/mL (0-125); Procalcitonin 0.17 ng/mL (0-0.5); Thyroid Stimulating Hormone 0.16 uIU/mL (0.27-4.20)
[2024-10-11 21:54] LABS: Alanine Aminotransferase 29 U/L (0-41); Albumin Level 3.9 g/dL (3.5-5.2); Alkaline Phosphatase 80 U/L (40-130); Aspartate Amino Transferase 21 U/L (0-40); Blood Urea Nitrogen 15 mg/dL (8-23); Calcium 8.7 mg/dL (8.5-10.5); Carbon Dioxide 19 mmol/L (22-29); Chloride 105 mmol/L (98-107); Chol HDL Ratio 2.87 mg/dL (1.0-5.00); Cholesterol 181 mg/dL (0-200); Creatinine Clr Calc Pharmacy 103.0833; Globulin 2.4 g/dL (1.3-4.6); Glucose 187 mg/dL (65-115); HDL Cholesterol 63 mg/dL (60-100); LDL Cholesterol Calculated 105 mg/dL (50-129); LDL HDL Ratio 1.67 RATIO (0.00-3.22); Osmolality Calculated 298 mOsm/kg (285-295); Sodium 141 mmol/L (136-145); Total Bilirubin 0.3 mg/dL (0.15-1.2); Total Protein 6.3 g/dL (6.6-8.7); Triglycerides 67 mg/dL (0-150)
[2024-10-11 21:57] LABS: Anion Gap 21.3 (5-19); Potassium 4.3 mmol/L (3.5-5.1)
--- NOTE | 2024-10-11 21:58 | ECG_ITS ---
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 Measurements Intervals [place] Rate: 80 P: 48 [place]: 166 QRS: -59 QRSD: 148 T: 60 QT: 418 QTc: 482 Interpretive Statements SINUS RHYTHM LEFT AXIS DEVIATION [QRS AXIS < -30] LEFT BUNDLE BRANCH BLOCK [120+ ms QRS DURATION, 80+ ms Q/S IN V1/V2, 85+ ms R IN I/aVL/V5/V6] Compared to ECG 09/11/2024 07:24:08 No significant changes Electronically Signed On 10-12-2024 21:27:27 CDT by Lupe Barba M.D. [email or web address] [id number]
[2024-10-11 23:22] LABS: Troponin 5 2HR 41.12 ng/L (0-15)
[2024-10-11 23:24] LABS: Troponin 5 2HR Delta -0.88 ABS# (0-10)
--- NOTE | 2024-10-11 23:24 | XRR_ITS ---
PROCEDURE INFORMATION: Exam: XR Chest Exam date and time: 10/11/2024 11:31 PM Age: 64 years old Clinical indication: Other non-vascualr catheter or device placement; Og tube placement TECHNIQUE: Imaging protocol: Radiologic exam of the chest. Views: 1 view. COMPARISON: CR (CHEST, ) 10/11/2024 9:10 PM FINDINGS: Tubes, catheters and devices: Enteric tube tip below the diaphragm over the gastric bubble. Lungs: Right lower lobe atelectasis versus infiltrate. Pleural spaces: Unremarkable. No pleural effusion. No pneumothorax. Heart/Mediastinum: Cardiomegaly. Bones/joints: Unremarkable. XR/XR chest 1V portable 12593 IMPRESSION: 1. Enteric tube tip below the diaphragm over the gastric bubble. 2. Cardiomegaly. 3. Right lower lobe atelectasis versus infiltrate.
[2024-10-12] VITALS (95 sets, daily range): BP systolic 93–160; BP diastolic 49–84; PULSE 66–92; RESP 14; TEMP 36.4–36.8; O2SAT 96–100
[2024-10-12] MEDS: ipratropium-albuterol 3 mL Neb INHALATION ×6 (00:45→20:29)
--- NOTE | 2024-10-12 01:15 | ECG_ITS ---
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 Measurements Intervals [place] Rate: 81 P: 80 [place]: 169 QRS: -89 QRSD: 145 T: 46 QT: 407 QTc: 474 Interpretive Statements SINUS RHYTHM WITH OCCASIONAL SUPRAVENTRICULAR PREMATURE COMPLEXES LEFT AXIS DEVIATION [QRS AXIS < -30] INTRAVENTRICULAR CONDUCTION DELAY [130+ ms QRS DURATION] Compared to ECG 10/11/2024 21:58:03 Intraventricular conduction delay now present Left bundle-branch block no longer present Electronically Signed On 10-12-2024 21:45:52 CDT by Lupe Barba M.D. [id number] [id number]
[2024-10-12] MEDS: vancomycin 2,000 MG/400 ML PIGGYBACK 200 MG IV (02:24)
[2024-10-12 03:48] LABS: Bilirubin Urine Negative (Negative); Blood Urine 2+ (Negative); Glucose Urine UA Negative (Normal); Ketones Urine Trace (Negative); Leukocyte Esterase Urine Negative (Negative); Nitrate Urine Negative (Negative); Protein Urine 1+ (Negative); Urine Appearance Clear (CLEAR); Urine Color Yellow (Yellow); Urobilinogen Urine 0.2 mg/dL (Negative)
[2024-10-12 03:48] LABS: Basophils % 0.1 %; Eosinophils % 0.1 %; Hematocrit 37.7 % (37-53); Lymphocytes % 7.1 %; Mean Corpuscular Hemoglobin 27.9 pg (27-33); Mean Corpuscular Volume 89.8 fl (82-101); Mean Platelet Volume 9.8 fL (7.4-10.4); Monocytes # 0.4 10^3/uL (0.2-0.9); Monocytes % 2.7 %; Neutrophils # 12.16 10^3/uL (1.8-7.7); Neutrophils % 89.6 %; Nucleated Red Blood Cells % 0 %; Platelet Count 173 10^3/cmm (157-399); Red Cell Distribution Width 15.8 % (12.1-15.1)
[2024-10-12 03:53] LABS: Add Urine Microscopic? YES; Bacteria Urine None Seen /hpf; Hyaline Casts Urine 17.77 /lpf; RBC Urine 51-100 /hpf (0-2); Squamous Epithelial Cell Urine 0-5 /hpf (0-5); WBC Urine 0-5 /hpf (0-5)
[2024-10-12 04:10] LABS: Troponin 5 6HR 31.62 ng/L (0-15); Troponin 5 6HR Delta -10.38 ng/L (0-12)
[2024-10-12 04:11] LABS: Specific Gravity, Urine 1.048 (1.005-1.030)
[2024-10-12 04:12] LABS: Add Urine Culture? Yes
[2024-10-12] MEDS: fentaNYL 1,000 MCG/100 ML BAG 10 MCG IV ×3 (04:12→21:39)
[2024-10-12 04:14] LABS: Anion Gap 17.2 (5-19); Blood Urea Nitrogen 16 mg/dL (8-23); Calcium 8.5 mg/dL (8.5-10.5); Carbon Dioxide 22 mmol/L (22-29); Chloride 105 mmol/L (98-107); Creatinine Clr Calc Pharmacy 128.8542; Glucose 188 mg/dL (65-115); Magnesium 1.8 mg/dL (1.7-2.3); NT Pro B Type Natriuretic Pept 386 pg/mL (0-125); Osmolality Calculated 296 mOsm/kg (285-295); Phosphorus 2.8 mg/dL (2.5-4.5); Potassium 4.2 mmol/L (3.5-5.1); Sodium 140 mmol/L (136-145)
[2024-10-12 04:18] LABS: Partial Thromboplastin Time 195.1 SECONDS (23.9-36.7)
[2024-10-12 04:34] LABS: Creatine Phosphokinase 83 U/L (39-308)
[2024-10-12 05:38] LABS: ABG PCO2 47.6 mmHg (35-45); ABG PH Result 7.33 (7.35-7.45); Blood Gas Allen Test Pos; Blood Gas Operator Identificat SAM; Blood Gas Sample Site Radial, right; Blood Gas Sample Type Arterial; Blood Gas Tidal Volume 0.55; HCO3 ABG 25.3 mmol/L (22-26); Oxygen Device VENT; PO2 FiO2 Ratio Arterial Blood 253
[2024-10-12] MEDS: perflutren protein-a microsphr 0.22 mg/mL SDV 3 mL IV (05:46)
[2024-10-12] MEDS: methylPREDNISolone sod succ 40 mg/mL INJ IVP ×3 (06:07→20:14)
[2024-10-12] MEDS: piperacillin-tazobactam 3.375 GM in sodium chloride 0.9% (plus) 50 ML IV ×3 (06:07→20:19)
--- NOTE | 2024-10-12 06:25 | ECG_ITS ---
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 Measurements Intervals [place] Rate: 77 P: 44 ID: 165 QRS: -51 QRSD: 150 T: 68 QT: 427 QTc: 484 Interpretive Statements SINUS RHYTHM WITH OCCASIONAL SUPRAVENTRICULAR PREMATURE COMPLEXES LEFT AXIS DEVIATION [QRS AXIS < -30] LEFT BUNDLE BRANCH BLOCK [120+ ms QRS DURATION, 80+ ms Q/S IN V1/V2, 85+ ms R IN I/aVL/V5/V6] Compared to ECG 10/12/2024 01:15:22 Left bundle-branch block now present Intraventricular conduction delay no longer present Electronically Signed On 10-12-2024 21:45:14 CDT by Lupe Barba M.D. [id number] [id number]
--- NOTE | 2024-10-12 06:31 | PC.NURSE ---
Dr. Meza contacted at 2300 due to mild bleeding from nares and bloody oral secretions following difficult NG/OG insertion. Ordered to continue to monitor bleeding and bleeding improved. Critical PTT reported at 0417, heparin paused and ordered to recheck PTT in 4 hours.
--- NOTE | 2024-10-12 06:34 | PHA.VACGOAL ---
Vancomycin Goal - Goal Vancomycin Goal:: 15-20 mg/L Vancomycin Indication:: Other (SEPSIS) - Therapy Current therapy:: Pip/Tazo Day of therpy:: Day [1]of [] . Actual body weight (kg): 130 kg - Data Labs: WBC 13.60 10^3/uL (3.29-11.43) H 10/12/24 03:32 RBC 4.20 10^6/uL (3.85-5.65) 10/12/24 03:32 Hgb 11.70 g/dL (11.27-16.99) 10/12/24 03:32 Hct 37.7 % (37-53) 10/12/24 03:32 MCV 89.8 fl (82-101) 10/12/24 03:32 MCH 27.9 pg (27-33) 10/12/24 03:32 MCHC 31.0 g/dL (30-55) 10/12/24 03:32 RDW 15.8 % (12.1-15.1) H 10/12/24 03:32 Sodium 140 mmol/L (136-145) 10/12/24 03:32 Potassium 4.2 mmol/L (3.5-5.1) 10/12/24 03:32 Chloride 105 mmol/L (98-107) 10/12/24 03:32 Carbon Dioxide 22 mmol/L (22-29) 10/12/24 03:32 Anion Gap 17.2 (5-19) 10/12/24 03:32 BUN 16 mg/dL (8-23) 10/12/24 03:32 Creatinine 0.8 mg/dL (0.7-1.2) 10/12/24 03:32 GFR Calculation 97.0 mL/min (90-130) 10/12/24 03:32 Treatment plan:: new consult Regimen:: New start vancomycin for sepsis. Received load dose of 2000 mg last night @2130. Started on maintenance dose of 2000 mg q12h.
[2024-10-12 07:31] LABS: Glucose Point of Care 194 mg/dL (70-110)
[2024-10-12] MEDS: budesonide 0.5 mg/2 mL Neb INHALATION ×2 (07:36→20:29)
[2024-10-12] MEDS: insulin lispro 100 unit/1 mL SUBCUT ×2 (08:40→20:16)
[2024-10-12 08:48] LABS: Partial Thromboplastin Time 30.5 SECONDS (23.9-36.7)
[2024-10-12] MEDS: levothyroxine 88 mcg Tablet PO (09:06)
[2024-10-12] MEDS: aspirin 81 mg EC Tablet PO (09:06)
[2024-10-12 09:42] LABS: Iron 27 ug/dL (59-158); Percent Saturation 12.3 % (20-50); Total Iron Binding Capacity 218 mcg/dl; Unsaturated Iron Binding 191 ug/dL (112-347)
[2024-10-12 09:48] LABS: Procalcitonin 0.28 ng/mL (0-0.5)
--- NOTE | 2024-10-12 09:56 | PC.NURSE ---
Dr. Paulino ordered to start the heparin 3 units/kg/hr lower than what was previous. Previous rate was 13 units/kg/hr which now is 10 units/kg/hr.
[2024-10-12 11:22] LABS: Glucose Point of Care 145 mg/dL (70-110)
[2024-10-12 12:45] LABS: MRSA PCR OZH (swab) NOT DETECTED (Negative)
[2024-10-12 12:57] LABS: Adenovirus Not Detected (NOT DETECT); Chlamydia Pneumoniae Not Detected (NOT DETECT); Coronavirus 229E,HKU1,NL63,OC4 Not Detected (NOT DETECT); Human Metapneumovirus Not Detected (NOT DETECT); Human Rhinovirus/Enterovirus Not Detected (NOT DETECT); Influenza A Not Detected (NOT DETECT); Influenza A H1 Not Detected (NOT DETECT); Influenza A H1-2009 Not Detected (NOT DETECT); Influenza A H3 Not Detected (NOT DETECT); Influenza B Not Detected (NOT DETECT); Mycoplasma Pneumoniae Not Detected (NOT DETECT); Parainfluenza Virus Type 1 Not Detected (NOT DETECT); Parainfluenza Virus Type 2 Not Detected (NOT DETECT); Parainfluenza Virus Type 3 Not Detected (NOT DETECT); Parainfluenza Virus Type 4 Not Detected (NOT DETECT); Respiratory Syncytial Virus A Not Detected (NOT DETECT); Respiratory Syncytial Virus B Not Detected (NOT DETECT); SARS-COV-2 Not Detected (NOT DETECT)
--- NOTE | 2024-10-12 13:13 | XR_ITS ---
WS: [id number] Portable AP upright chest, 10/12/2024 Clinical Data: Post PICC insertion Comparison: Portable chest, 10/11/2024 Findings: Right PICC line ends in the superior vena cava. No pneumothorax is seen. XR/XR chest 1V portable 21030 Impression: Satisfactory placement right PICC line.
--- NOTE | 2024-10-12 14:02 | P.PN_ITS ---
Subjective 2 Subjective: Admitted overnight. Seen with caregiver at bedside. Patient is currently sedated with fentanyl and Versed. Seen with FiO2 45%, tidal volume of 550, PEEP of 10. Has remained hemodynamically stable. Appears comfortable. Vitals/I&O/Wt Last Vital Signs Temp 97.5 F L 10/12/24 08:30 Pulse 85 10/12/24 13:45 Resp 14 10/12/24 13:32 BP 102/57 10/12/24 13:45 Pulse Ox 96 10/12/24 13:45 O2 Del Method Mechanical Ventilation 10/12/24 13:45 FiO2 40 10/12/24 13:45 10/11/24 10/12/24 10/12/24 22:59 06:59 14:59 Intake Total 4.61 / 4.61 1171.667 / 1176.277 134.5 / 134.5 Output Total 1000 / 1000 600 / 600 Balance 4.61 / 4.61 171.667 / 176.277 -465.5 / -465.5 Weight last 48 hrs Weight 130 kg Weight 131 kg Physical Exam 2 Narrative: General: Intubated, sedated HEENT: PERRLA, pupils bilaterally equal and reactive Chest: Bilateral bronchial breath sounds with occasional rhonchi CVS: S1-S2 regular, no murmurs, no tachycardia, no gallops, no rubs Abdomen: Soft, nontender, no organomegaly, bowel sounds present Neuro: Intubated, sedated Urinary Catheter Management: Cox Latex: Cath Placed During This Visit: yes Reason for Continuing Indwelling Catheter: Accurate Measurement of Urinary Output in Critically Ill Patients Urinary Catheter Date of Insertion: 10/11/24 Urinary Catheter Time of Insertion: 23:00 Data 10/12/24 03:32 10/12/24 03:32 Micro: Microbiology 10/11/24 20:40 Blood Culture - Preliminary Blood SPECIMEN COLLECTED 10/11/24 20:45 Blood Culture - Preliminary Blood SPECIMEN COLLECTED A&P Assessment and plan (1) Acute hypoxic respiratory failure: (2) COPD exacerbation: (3) Pulmonary embolism: (4) HTN (hypertension): Qualifiers: Hypertension type: primary hypertension Qualified Code(s): I10 - Essential (primary) hypertension (5) Morbid obesity with BMI of 40.0-44.9, adult: (6) Pre-diabetes: (7) Atrial flutter: (8) Sepsis: Plan Acute hypoxic respiratory failure: Most likely in setting of COPD exacerbation and pulmonary embolism. PE diagnosed on a CTA done at an outside hospital. Cannot rule out underlying obstructive sleep apnea. Concerns for pneumonia. Keep mechanically ventilated for now. Continue sedation with Versed and fentanyl for now. Plan for sedation vacation in a.m. Daily ABG. If oxygen supplementation remains stable will plan for daily chest x-ray otherwise with plan for CT chest. Follow-up blood culture. Check urinalysis. Check sputum culture. Check MRSA swab, respiratory viral panel. For now continue with IV Zosyn. If MRSA swab negative will discontinue vancomycin. Continue nebulization treatment with Pulmicort twice daily, DuoNeb every 4 hour. Continue nebulization treatment with Solu-Medrol 40 mg every 8 hourly. Continue with heparin drip. Monitor PTT. Will transition to oral anticoagulation prior to discharge. Appreciate echocardiogram results. No concern for right heart strain. Patient will most likely need an outpatient sleep study. Sepsis: Present on admission. SIRS: Tachycardic, Febrile, Leukocytosis Source: Pneumonia End organ damage: Acute respiratory failure Patient received septic bolus as an outside hospital. Continue with NS at 50 cc/h. Strict input charting, daily weights. A-fib with RVR: Currently normal sinus rhythm. Continue to monitor. Telemetry. If has persistent A-fib or recurrent A-fib will discuss in detail with the family regarding possible need for anticoagulation for stroke prevention. Continue other chronic home medications including levothyroxine. CODE STATUS: Patient's caregiver is a life partner. Not legally . Patient does not have a DPOA on file. For now full code. Will discuss further with patient's daughter over the phone. N.p.o. Protonix for PUD prophylaxis Heparin drip will be sufficient for DVT prophylaxis. Tried calling patient's daughter Ms. Johnson over the phone. Not able to get in touch. Left a voice message. PDMP PDMP Reviewed: Not Reviewed Attestations 2 Medical Necessity Statement*: Requires further hospitalization for management of respiratory failure in setting of COPD exacerbation, pulmonary embolism in a patient with high concerns for undiagnosed sleep apnea, possible pneumonia, ventilator care Critical Care Time: The high probability of a clinically significant, sudden or life threatening deterioration of the patient's [cardiac, pulmonary] system(s) required my full and direct attention, intervention and personal management. The critical care time is as shown. This time is in addition to time spent performing any reported procedures but includes the following: [x] Data and vital sign review and interpretation [x] Patient assessment, examination and intervention [x] Documentation [x] Medication orders and management Critical Care Time (min): 70 Coding Level of Care Code Critical Care >/= 30 minutes Critical care time (in minutes): 70 The high probability of a clinically significant, sudden or life threatening deterioration, as referenced in this documentation, required my full and direct attention, intervention and personal management. The critical care time shown is in addition to time spent performing any reported separately billable procedures and includes the following: [x] Data and vital sign review and interpretation [x ] Patient assessment, examination and intervention [x] Medication orders and management [x] Patient/Family updates as able [x] Care Coordination and Documentation. Other Coding Information This patient has a high probability of clinically significant, sudden or life threatening deterioration of the patient's (neurological/pulmonary/cardiac/renal/ID/endocrine) systems required my full, direct attention, the highest level of physician preparedness for urgent intervention and personal management. I managed/supervised life or organ supporting interventions that required frequent physician assessment. I devoted my full attention in the ICU to the direct care of this patient for the period of time indicated above. Time I spent with family or surrogate(s) is included only if the patient was incapable of providing necessary information or participating in decision making. This time includes the following services provided: Telemetry review Mechanical Ventilation Hemodynamic interpretation, assessment and management Review and interpretation of CXR Review and interpretation of lab values Review and interpretation of microbiologic data and culture results Review of medications and administration Review and interpretation of Nutrition requirements and management Discussion of management with other consultants and services Clinical update to family members Diagnoses Acute hypoxic respiratory failure J96.01 COPD exacerbation J44.1 Pulmonary embolism I26.99 Primary hypertension I10 Hypertension type: primary hypertension Morbid obesity with BMI of 40.0-44.9, adult E66.01; Z68.41 Pre-diabetes R73.03 Atrial flutter I48.92 Sepsis A41.9
[2024-10-12 14:26] LABS: Glucose Point of Care 131 mg/dL (70-110)
--- NOTE | 2024-10-12 14:47 | PICC.NOTE ---
Triple lumen PICC placed to right basilic vein. Referred to vascular access nurse for PICC placement due to poor access and heparin drip. Risks and benefits discussed and informed consent obtained from pt spouse, Malissa. Right arm assessed with right basilic vein measuring 4.3 mm, straight, and apparent best choice for placement. Using sterile technique and MST, right basilic vein accessed x 1 stick. Mid-arm circumference measured 10 cm from right AC 35 cm. Trimmed cath 43 cm with 0 cm external length noted. CXR shows tip in SVC, in good position for use per radiologist. Line secured with stat-lock. Insertion site covered with Biopatch and TSM. Report given to bedside nurse, STEPHANIE Sheikh.
[2024-10-12 16:31] LABS: Glucose Point of Care 142 mg/dL (70-110)
[2024-10-12] MEDS: midazolam hcl 100 MG/100 ML BAG IV (18:32)
[2024-10-12 20:04] LABS: Glucose Point of Care 146 mg/dL (70-110)
[2024-10-12] MEDS: pantoprazole 40 mg SDV IVP (20:14)
[2024-10-12] MEDS: heparin drip 25,000 UNIT/500 ML PREMIX 28 UNIT IV (20:17)
--- NOTE | 2024-10-12 21:20 | USCV_ITS ---
Kesha Surinder Age: 64 Gender: M : 1960 Exam Date: 10/12/2024 03:02 Ordering Phys: Eduin Meza MD Technologist: ELIZABETH [place] [facility] [place]: respiratory failure, history of Morbid Obesity, CHF, COPD, HTN, influenza, hypoxias in 70s on vent in ICU-5. BP: 136 / 72 HR: 76 Rhythm: Sinus Technical Quality: Adequate with OPTISON MEASUREMENTS (Male / Female) Normal Values 2D ECHO LV Diastolic Diameter PLAX 4.8 cm 4.2 - 5.9 / 3.9 - 5.3 cm IVS Diastolic Thickness 1.7 cm 0.6 - 1.0 / 0.6 - 0.9 cm IVS Systolic Thickness 1.8 cm LVPW Diastolic Thickness 1.6 cm 0.6 - 1.0 / 0.6 - 0.9 cm LVPW Systolic Thickness 2.3 cm LVOT Diameter 2.1 cm LV Ejection Fraction 2D Teich 60.3 % LV Ejection Fraction MOD 4C 65.4 % LV Ejection Fraction MOD 2C 49.7 % LV Ejection Fraction 2C AL 53.3 % LA Diameter 4.7 cm LA Sys Volume AL 107.4 cm cubed LA Sys Volume Index AL 40.9 cm cubed/m squared Aorta at Sinotubular Diameter 3.3 cm IVC Diameter 1.8 cm M-MODE LA Ao Ratio MM 1.6 AV Cusp Separation MM 2.0 cm DOPPLER AV Peak Velocity 168.0 cm/s LVOT Peak Velocity 95.0 cm/s AV Area Cont Eq vti 2.2 cm squared AV Area Cont Eq pk 2.1 cm squared MV Peak Velocity 158.0 cm/s MV Area PHT 2.7 cm squared Mitral E to A Ratio 0.8 TV Peak E Velocity 51.0 cm/s PV Peak Velocity 101.0 cm/s FINDINGS Left Ventricle Diffuse hypokinesis of the septum with left ventricular ejection fraction of 50%.Grade I/IV diastolic dysfunction (abnormal relaxation filling pattern), normal to mildly elevated filling pressures. Study is a suboptimal quality because of the poor apical windows. (Echo contrast - Optison was used to delineate the endocardium and to estimate the LV ejection fraction) Right Ventricle Possibly of normal size ejection fraction Right Atrium Right atrium not well visualized. Left Atrium Mildly increased left atrial size. Mitral Valve No gross abnormality noted Aortic Valve Thickened aortic valve. Tricuspid Valve Not well-visualized Pulmonic Valve Pulmonic valve not well visualized. Pericardium No pericardial effusion. Aorta Normal aortic annulus size. IVC Inferior vena cava not visualized. CONCLUSIONS Diffuse hypokinesis of the septum with left ventricular ejection fraction of 50%.Grade I/IV diastolic dysfunction (abnormal relaxation filling pattern), normal to mildly elevated filling pressures. Study is a suboptimal quality because of the poor apical windows. (Echo contrast - Optison was used to delineate the endocardium and to estimate the LV ejection fraction). Thickened aortic valve. The right-sided structures could not be visualized well There is no pericardial effusion. Dr Lupe Barba MD FACC (Electronically Signed) Final Date: 12 October 2024 08:29 S
--- NOTE | 2024-10-12 21:20 | USCV_ITS ---
Kesha Surinder Age: 64 Gender: M : 1960 Exam Date: 10/12/2024 22:13 Ordering Phys: Eduin Meza MD Technologist: ELIZABETH Exam Location: [facility] – [place] Indication: swelling Morbid Obesity, respiratory failure, hypoxia in 70s on vent in ICU-5 HISTORY: swelling Morbid Obesity, respiratory failure, hypoxia in 70s on vent in ICU-5 PROCEDURES: Venous duplex imaging was performed in bilateral lower extremities. The following venous structures were evaluated: common femoral vein, profunda vein, proximal portion of the greater saphenous vein, superficial femoral vein, and the popliteal vein. In addition, the posterior tibial veins were evaluated. FINDINGS: Normal 2-D Doppler and augmentation and compressibility throughout the lower extremity venous structures. Additional imaging through the proximal calf veins also reveals no thrombus. Limited evaluation of the greater saphenous vein is patent with no thrombus. CONCLUSIONS No DVT bilateral lower extremities. Dr. Francisca Mosuqeda DO (Electronically Signed) Final Date: 12 October 2024 07:51 S
[2024-10-12 22:08] LABS: Partial Thromboplastin Time 69.7 SECONDS (23.9-36.7)
[2024-10-13] VITALS (35 sets, daily range): BP systolic 98–160; BP diastolic 48–109; PULSE 72–118; RESP 7–23; TEMP 36.5–37; O2SAT 92–99
[2024-10-13] MEDS: ipratropium-albuterol 3 mL Neb INHALATION ×6 (00:08→20:12)
[2024-10-13] MEDS: insulin lispro 100 unit/1 mL SUBCUT ×4 (03:35→20:59)
[2024-10-13] MEDS: fentaNYL 1,000 MCG/100 ML BAG 12.5 MCG IV (04:00)
[2024-10-13 04:48] LABS: Basophils % 0.1 %; Hematocrit 33.7 % (37-53); Lymphocytes % 7.4 %; Mean Corpuscular HGB Conc 31.8 g/dL (30-55); Mean Corpuscular Hemoglobin 27.4 pg (27-33); Mean Corpuscular Volume 86.4 fl (82-101); Mean Platelet Volume 10.2 fL (7.4-10.4); Neutrophils # 11.48 10^3/uL (1.8-7.7); Nucleated Red Blood Cells % 0 %; Platelet Count 182 10^3/cmm (157-399); Red Cell Distribution Width 15.9 % (12.1-15.1); White Blood Count 13.51 10^3/uL (3.29-11.43)
[2024-10-13 05:04] LABS: Partial Thromboplastin Time 88.7 SECONDS (23.9-36.7)
[2024-10-13 05:08] LABS: Alanine Aminotransferase 19 U/L (0-41); Albumin Level 3.2 g/dL (3.5-5.2); Alkaline Phosphatase 56 U/L (40-130); Anion Gap 15.9 (5-19); Aspartate Amino Transferase 9 U/L (0-40); Blood Urea Nitrogen 33 mg/dL (8-23); Calcium 8.4 mg/dL (8.5-10.5); Carbon Dioxide 22 mmol/L (22-29); Chloride 106 mmol/L (98-107); Creatinine Clr Calc Pharmacy 85.5556; Globulin 2.6 g/dL (1.3-4.6); Glomerular Filtration Rate 60.8 mL/min (90-130); Glucose 173 mg/dL (65-115); Osmolality Calculated 301 mOsm/kg (285-295); Potassium 3.9 mmol/L (3.5-5.1); Sodium 140 mmol/L (136-145); Total Bilirubin 0.2 mg/dL (0.15-1.2); Total Protein 5.8 g/dL (6.6-8.7)
[2024-10-13] MEDS: methylPREDNISolone sod succ 40 mg/mL INJ IVP ×3 (05:18→20:57)
[2024-10-13] MEDS: chlorhexidine gluconate 4% Btl 118 mL 1 APPLIC TOPICAL (05:19)
[2024-10-13] MEDS: piperacillin-tazobactam 3.375 GM in sodium chloride 0.9% (plus) 50 ML IV ×3 (05:19→20:57)
[2024-10-13 05:44] LABS: Folate Level 8.8 ng/mL (4.5-32.2)
[2024-10-13 05:56] LABS: Glucose Point of Care 244 mg/dL (70-110)
[2024-10-13 06:14] LABS: ABG PCO2 44.6 mmHg (35-45); ABG PH Result 7.37 (7.35-7.45); Alveolar-Arterial Oxygen Gradi 15.1 mmHg (5-10); Arterial Blood Gas Hematocrit 37.1 % (42-52); Base Excess ABG 0.4 mmol/L (-2.0-2.0); Blood Gas Operator Identificat SAM; Blood Gas Sample Site Brachial, right; Blood Gas Sample Type Arterial; Blood Gas Tidal Volume 0.55; Carboxyhemoglobin 0.8 %THgb (0.4-20.1); HGB O2 Sat 96.7 % (95-100); Ionized Calcium Level - ABG 1.2 mmol/L (1.1-1.4); Methemoglobin 1.3 % (0.4-1.5); Oxygen Device VENT; Oxygen Saturation ABG 98.7; PO2 FiO2 Ratio Arterial Blood 280; Potassium Level - ABG 3.8 mmol/L (3.5-5.0); Total Hemoglobin 12.1 g/dL (14-18)
[2024-10-13] MEDS: budesonide 0.5 mg/2 mL Neb INHALATION ×2 (07:27→20:12)
[2024-10-13 07:55] LABS: Glucose Point of Care 141 mg/dL (70-110)
[2024-10-13] MEDS: aspirin 81 mg EC Tablet PO (08:56)
[2024-10-13] MEDS: levothyroxine 88 mcg Tablet PO (08:56)
--- NOTE | 2024-10-13 09:42 | XR_ITS ---
WS: [id number] Portable AP supine chest, 10/13/2024 Clinical Data: plans for extubation Comparison: Portable chest, 10/12/2024 Findings: The endotracheal tube remains above the alicja. The orogastric tube remains in the same position. The right PICC line appears to and in the right subclavian vein. Bilateral patchy opacities in both lower lobes have increased slightly. The heart is slightly enlarged. No pneumothorax is seen. Monitor leads are on the chest wall. XR/XR chest 1V portable [id number] Impression: 1. Endotracheal tube and oral gastric tube remain in the same position. 2. Right PICC line may end in right subclavian vein. 3. Slight increase in bilateral lower lobe opacities.
--- NOTE | 2024-10-13 10:42 | PC.NURSE ---
Please see paper chart for vitals.
[2024-10-13 11:03] LABS: Glucose Point of Care 151 mg/dL (70-110)
[2024-10-13] MEDS: FUROsemide 10 mg/mL SDV 4mL 40 MG IVP (11:10)
[2024-10-13 11:26] LABS: Partial Thromboplastin Time 68.7 SECONDS (23.9-36.7)
--- NOTE | 2024-10-13 12:57 | PC.NURSE ---
Patient extubated to 4L NC at 1252. RT and RN at bedside.
--- NOTE | 2024-10-13 13:24 | ECG_ITS ---
[facility] Date: 2024-10-13 Pat Name: Surinder Rebolledo Department: Room: [facility] Gender: Male Hr Associate: : 1960 Requested By: Veto Paulino Order Number: [id number] Lily MD: Lupe Barba M.D. Measurements Intervals [place] Rate: 108 P: 0 TN: 0 QRS: -54 QRSD: 156 T: 35 QT: 381 QTc: 512 Interpretive Statements Sinus tachycardia with supraventricular ectopic LEFT AXIS DEVIATION [QRS AXIS < -30] LEFT BUNDLE BRANCH BLOCK [120+ ms QRS DURATION, 80+ ms Q/S IN V1/V2, 85+ ms R IN I/aVL/V5/V6] Compared to ECG 10/12/2024 06:25:01 Sinus rhythm no longer present Electronically Signed On 10-14-2024 09:03:18 CDT by Lupe Barba M.D. [id number]
--- NOTE | 2024-10-13 15:07 | P.PN_ITS ---
Subjective 2 Subjective: No acute events overnight. Patient has remained hemodynamically stable and afebrile. Today morning when seen he was on Versed of 1, fentanyl of 100. Sedated but waking up on physical stimuli. Appreciate ventilator settings. Appreciate urine output. Vitals/I&O/Wt Last Vital Signs Temp 98.2 F 10/13/24 13:53 Pulse 105 H 10/13/24 14:42 Resp 8 L 10/13/24 14:42 BP 122/82 10/13/24 14:42 Pulse Ox 94 10/13/24 14:42 O2 Del Method Nasal Cannula 10/13/24 14:42 O2 Flow Rate 2 10/13/24 14:42 FiO2 35 10/13/24 11:16 10/13/24 10/13/24 10/13/24 06:59 14:59 22:59 Intake Total 380.800 / 1046.967 315.183 / 315.183 Output Total 300 / 1300 900 / 900 Balance 80.800 / -253.033 -584.817 / -584.817 Weight last 48 hrs Weight 129.5 kg Weight 130 kg Weight 131 kg Physical Exam 2 Narrative: General: Intubated, sedated HEENT: PERRLA, pupils bilaterally equal and reactive Chest: Bilateral bronchial breath sounds with occasional rhonchi CVS: S1-S2 regular, no murmurs, no tachycardia, no gallops, no rubs Abdomen: Soft, nontender, no organomegaly, bowel sounds present Neuro: Intubated, sedated Urinary Catheter Management: Cox Latex: Cath Placed During This Visit: yes Reason for Continuing Indwelling Catheter: Accurate Measurement of Urinary Output in Critically Ill Patients Urinary Catheter Date of Insertion: 10/11/24 Urinary Catheter Time of Insertion: 23:00 Data 10/13/24 04:16 10/13/24 04:16 Micro: Microbiology 10/12/24 10:00 Gram Stain - Final Sputum - Endotracheal Tube Aspirate Sputum Culture - Preliminary 10/12/24 03:30 Urine Culture - Preliminary Urine,Clean Catch 10/11/24 20:40 Blood Culture - Preliminary Blood NEGATIVE TO DATE 10/11/24 20:45 Blood Culture - Preliminary Blood NEGATIVE TO DATE A&P Assessment and plan (1) Acute hypoxic respiratory failure: (2) COPD exacerbation: (3) Pulmonary embolism: (4) HTN (hypertension): Qualifiers: Hypertension type: primary hypertension Qualified Code(s): I10 - Essential (primary) hypertension (5) Morbid obesity with BMI of 40.0-44.9, adult: (6) Atrial flutter: (7) Sepsis: (8) LBBB (left bundle branch block): (9) Hypothyroid: Qualifiers: Hypothyroidism type: postoperative Qualified Code(s): E89.0 - Postprocedural hypothyroidism (10) Eosinophilic asthma: Plan Acute hypoxic respiratory failure: Most likely in setting of COPD exacerbation and pulmonary embolism. PE diagnosed on a CTA done at an outside hospital. Cannot rule out underlying obstructive sleep apnea. Concerns for pneumonia. Plan for weaning trial. Plan to extubate if patient has good RSBI after weaning trial. If extubated will do bedside swallow and start on diet accordingly. PT/OT postextubation. IV Lasix 40 mg one-time. Stat chest x-ray. Appreciate ABG. Follow-up blood culture, sputum culture. Negative MRSA swab, respiratory viral panel. For now continue with IV Zosyn. DC vancomycin. Continue nebulization treatment with Pulmicort twice daily, DuoNeb every 4 hour. Continue Solu-Medrol 40 mg every 8 hourly. Plan to wean in next 24 hours. Continue with heparin drip. Monitor PTT. Will transition to oral anticoagulation prior to discharge. Appreciate echocardiogram results. No concern for right heart strain. Patient will most likely need an outpatient sleep study. Sepsis: Present on admission. SIRS: Tachycardic, Febrile, Leukocytosis Source: Pneumonia End organ damage: Acute respiratory failure Patient received septic bolus as an outside hospital. Strict input charting, daily weights. A-fib with RVR: Currently normal sinus rhythm. Continue to monitor. Telemetry. If has persistent A-fib or recurrent A-fib will discuss in detail with the family regarding possible need for anticoagulation for stroke prevention. LBBB: Patient does seem to have baseline LBP. Had positive cardiac stress test in 2023. Appreciate cardiac angiogram from 2023. Continue other chronic home medications including levothyroxine. CODE STATUS: Patient's caregiver is a life partner. Not legally . Patient does not have a DPOA on file. For now full code. Will discuss further with patient's daughter over the phone. N.p.o. Protonix for PUD prophylaxis Heparin drip will be sufficient for DVT prophylaxis. Tried calling patient's daughter Ms. Johnson over the phone. Not able to get in touch. Left a voice message. PDMP PDMP Reviewed: Not Reviewed Attestations 2 Medical Necessity Statement*: Requires further hospitalization for management of acute hypoxic respiratory failure in setting of PE, COPD exacerbation in a patient with history of LBBB Critical Care Time: The high probability of a clinically significant, sudden or life threatening deterioration of the patient's [cardiac, pulmonary, renal] system(s) required my full and direct attention, intervention and personal management. The critical care time is as shown. This time is in addition to time spent performing any reported procedures but includes the following: [x] Data and vital sign review and interpretation [x] Patient assessment, examination and intervention [x] Documentation [x] Medication orders and management Critical Care Time (min): 90 Coding Level of Care Code Critical Care >/= 30 minutes Critical care time (in minutes): 90 The high probability of a clinically significant, sudden or life threatening deterioration, as referenced in this documentation, required my full and direct attention, intervention and personal management. The critical care time shown is in addition to time spent performing any reported separately billable procedures and includes the following: [x] Data and vital sign review and interpretation [x ] Patient assessment, examination and intervention [x] Medication orders and management [x] Patient/Family updates as able [x] Care Coordination and Documentation. Other Coding Information This patient has a high probability of clinically significant, sudden or life threatening deterioration of the patient's (neurological/pulmonary/cardiac/renal/ID/endocrine) systems required my full, direct attention, the highest level of physician preparedness for urgent intervention and personal management. I managed/supervised life or organ supporting interventions that required frequent physician assessment. I devoted my full attention in the ICU to the direct care of this patient for the period of time indicated above. Time I spent with family or surrogate(s) is included only if the patient was incapable of providing necessary information or participating in decision making. This time includes the following services provided: Telemetry review Mechanical Ventilation Hemodynamic interpretation, assessment and management Review and interpretation of CXR Review and interpretation of lab values Review and interpretation of microbiologic data and culture results Review of medications and administration Review and interpretation of Nutrition requirements and management Discussion of management with other consultants and services Clinical update to family members Diagnoses Acute hypoxic respiratory failure J96.01 COPD exacerbation J44.1 Pulmonary embolism I26.99 Primary hypertension I10 Hypertension type: primary hypertension Morbid obesity with BMI of 40.0-44.9, adult E66.01; Z68.41 Atrial flutter I48.92 Sepsis A41.9 LBBB (left bundle branch block) I44.7 Postoperative hypothyroidism E89.0 Hypothyroidism type: postoperative Eosinophilic asthma J82.83
--- NOTE | 2024-10-13 15:23 | PC.NURSE ---
Remaining fentanyl and versed wasted with STEPHANIE Red[place].
[2024-10-13 17:25] LABS: Glucose Point of Care 167 mg/dL (70-110)
[2024-10-13] MEDS: heparin drip 25,000 UNIT/500 ML PREMIX 23 UNIT IV (17:30)
[2024-10-13] MEDS: metoprolol tartrate 25 mg Tablet PO (17:46)
[2024-10-13 18:59] LABS: Partial Thromboplastin Time 62.6 SECONDS (23.9-36.7)
[2024-10-13 20:48] LABS: Glucose Point of Care 258 mg/dL (70-110)
[2024-10-13] MEDS: pantoprazole 40 mg SDV IVP (20:54)
[2024-10-14] VITALS (42 sets, daily range): BP systolic 111–186; BP diastolic 65–94; PULSE 90–124; RESP 10–28; TEMP 36.7–37.3; O2SAT 91–99
[2024-10-14] MEDS: ipratropium-albuterol 3 mL Neb INHALATION ×2 (00:24→07:31)
[2024-10-14 01:49] LABS: Partial Thromboplastin Time 65.9 SECONDS (23.9-36.7)
[2024-10-14 04:56] LABS: Basophils % 0.1 %; Eosinophils % 0.2 %; Hematocrit 35.6 % (37-53); Lymphocytes # 0.9 10^3/uL (0.8-4.8); Lymphocytes % 5.3 %; Mean Corpuscular HGB Conc 31.7 g/dL (30-55); Mean Corpuscular Hemoglobin 27.8 pg (27-33); Mean Corpuscular Volume 87.5 fl (82-101); Mean Platelet Volume 10.8 fL (7.4-10.4); Monocytes # 1.4 10^3/uL (0.2-0.9); Monocytes % 8.2 %; Neutrophils # 14.68 10^3/uL (1.8-7.7); Neutrophils % 84.4 %; Nucleated Red Blood Cells % 0 %; Platelet Count 195 10^3/cmm (157-399); Red Blood Count 4.07 10^6/uL (3.85-5.65); Red Cell Distribution Width 15.9 % (12.1-15.1); White Blood Count 17.39 10^3/uL (3.29-11.43)
[2024-10-14 05:16] LABS: Alanine Aminotransferase 21 U/L (0-41); Albumin Level 3.4 g/dL (3.5-5.2); Alkaline Phosphatase 59 U/L (40-130); Anion Gap 15.9 (5-19); Aspartate Amino Transferase 13 U/L (0-40); Blood Urea Nitrogen 35 mg/dL (8-23); Calcium 8.8 mg/dL (8.5-10.5); Carbon Dioxide 24 mmol/L (22-29); Chloride 105 mmol/L (98-107); Creatinine Clr Calc Pharmacy 93.1439; Globulin 2.6 g/dL (1.3-4.6); Glomerular Filtration Rate 67.2 mL/min (90-130); Glucose 180 mg/dL (65-115); Osmolality Calculated 305 mOsm/kg (285-295); Potassium 3.9 mmol/L (3.5-5.1); Sodium 141 mmol/L (136-145); Total Bilirubin 0.2 mg/dL (0.15-1.2)
[2024-10-14 05:17] LABS: Magnesium 2.2 mg/dL (1.7-2.3)
[2024-10-14] MEDS: piperacillin-tazobactam 3.375 GM in sodium chloride 0.9% (plus) 50 ML IV ×3 (05:23→20:38)
[2024-10-14] MEDS: methylPREDNISolone sod succ 40 mg/mL INJ IVP ×2 (05:23→17:42)
[2024-10-14 07:24] LABS: Glucose Point of Care 174 mg/dL (70-110)
[2024-10-14] MEDS: budesonide 0.5 mg/2 mL Neb INHALATION ×2 (07:31→20:16)
[2024-10-14] MEDS: metoprolol tartrate 25 mg Tablet PO ×2 (07:54→10:20)
[2024-10-14] MEDS: levothyroxine 88 mcg Tablet PO (07:55)
[2024-10-14] MEDS: insulin lispro 100 unit/1 mL SUBCUT ×3 (07:55→21:35)
[2024-10-14] MEDS: aspirin 81 mg EC Tablet PO (07:55)
[2024-10-14 08:48] LABS: Partial Thromboplastin Time 23.9 SECONDS (23.9-36.7)
--- NOTE | 2024-10-14 09:50 | CT_ITS ---
WS: [id number] CT chest wo con [id number] HISTORY: copd, resp failure TECHNIQUE: Axial imaging performed through the thorax. Coronal and sagittal reformats are submitted. All CT scans at [facility] use at least one of these dose optimization techniques: automated exposure control; mA and/or kV adjustment per patient size (includes targeted exams where dose is matched to clinical indication); or iterative reconstruction. CONTRAST: None DLP: 783.26 mGy.cm COMPARISON: 10/11/2024 Lungs and central airway: Lungs are better aerated with no areas of consolidation or groundglass attenuation. No pulmonary mass. Pleura: Normal. No pleural effusion. Heart and pericardium: Mild cardiomegaly. Mediastinum and marco: No mediastinum or hilar adenopathy. Vessels: Normal size aortic and pulmonary artery. No coronary artery calcifications. RIGHT upper extremity PICC line. Chest wall and lower neck: Thyroid is enlarged extending substernal. RIGHT thyroid calcified nodule at 11 mm. High RIGHT paratracheal 15 mm lymph node. Upper abdomen: Small hiatal hernia. Mild hepatic steatosis. No adrenal mass. Osseous structures: Degenerative disc disease and thoracic spondylosis. CT/CT chest wo con [id number] IMPRESSION: 1. No pulmonary mass or pneumonia. Lungs much better aerated as compared to . 2. Mild cardiomegaly. 3. Right-sided PICC line. 4. Enlarged substernal thyroid, likely multinodular goiter. RIGHT thyroid calc ifications. 5. Indeterminate high RIGHT paratracheal 15 mm lymph node. Stable since 015. 6. Small hiatal hernia.
[2024-10-14] MEDS: FUROsemide 10 mg/mL SDV 4mL 40 MG IVP (10:20)
[2024-10-14] MEDS: apixaban 5 mg Tablet 10 MG PO ×2 (10:20→20:36)
[2024-10-14 11:02] LABS: Glucose Point of Care 191 mg/dL (70-110)
--- NOTE | 2024-10-14 12:30 | PC.SOCIAL ---
IMM UPDATED IMM dated and initialed, copy given to patient and copy placed in chart.
--- NOTE | 2024-10-14 13:04 | US_ITS ---
WS: [id number] THYROID ULTRASOUND HISTORY: Thyroid enlargement, history of complete thyroidectomy. COMPARISON: Thyroid ultrasound 10/23/2021, chest CT 10/14/2024 Right lobe: 2.7 cm x 3.0 cm x 5.8 cm (w x ap x l). Volume: 22.3 cm3. Heterogeneous round mass with edge shadowing noted in the thyroid bed. This does appear to be thyroid tissue, likely a goiter. Left lobe: 2.6 cm x 3.0 cm x 5.3 cm (w x ap x l). Volume: 20.2 cm3. Heterogeneous round mass within the LEFT thyroid bed with increased vascularity. This has appearance of a thyroid goiter. Isthmus: 0.4 cm. US/US thyroid [id number] IMPRESSION: 1. Patient did provide a history of a prior complete thyroidectomy. 2. Heterogeneous soft tissue within the thyroid bed has a most typical appeara nce for thyromegaly secondary to a goiter. It is possible to have recurrence of a thyroid goiter. Recurrence also may be secondary to subtotal thyroidectomy. To confirm this is thyroid tissue nuclear medicine thyroid uptake can be perfor med. Within the significant recurrence since thyroidectomy possibility of thyro id neoplasm should also be considered. There is no discrete mass or nodule.
[2024-10-14] MEDS: levalbuterol 0.63 mg/3 mL Neb INHALATION ×2 (13:19→20:16)
[2024-10-14] MEDS: ipratropium 0.5 mg/2.5 mL Neb INHALATION ×2 (13:19→20:16)
--- NOTE | 2024-10-14 14:20 | P.PN_ITS ---
Subjective 2 Subjective: No acute events overnight. Patient was eventually extubated around 1 PM yesterday. He tolerated extubation well. Currently on 2 L of supplementation. Sitting up in chair. States feeling a lot better. Denies any nausea, vomiting, headache. Tolerating diet well. Vitals/I&O/Wt Last Vital Signs Temp 98.0 F 10/14/24 08:00 Pulse 100 10/14/24 13:28 Resp 18 10/14/24 13:19 BP 172/88 10/14/24 12:30 Pulse Ox 98 10/14/24 13:19 O2 Del Method Room Air 10/14/24 13:19 O2 Flow Rate 2 10/14/24 07:32 FiO2 35 10/13/24 11:16 10/13/24 10/14/24 10/14/24 22:59 06:59 14:59 Intake Total 1360.667 / 4911.490 8317.15 / 2848.000 770 / 770 Output Total 900 / 1800 750 / 2550 1600 / 1600 Balance 460.667 / -124.150 422.15 / 298.000 -830 / -830 Weight last 48 hrs Weight 129.5 kg Physical Exam 2 Narrative: General: AO x 3, no acute distress, sitting comfortably in bed, obese HEENT: PERRLA, pupils bilaterally equal and reactive Chest: Bilateral bronchial breath sounds with occasional rhonchi CVS: S1-S2 regular, no murmurs, no tachycardia, no gallops, no rubs Abdomen: Soft, nontender, no organomegaly, bowel sounds present Neuro: No focal deficit, moving all limbs, able x 3, no facial deformity Urinary Catheter Management: Cox Latex: Cath Placed During This Visit: yes, but has since been removed by the nurse Reason for Continuing Indwelling Catheter: Decision to DC Catheter Urinary Catheter Date of Insertion: 10/11/24 Urinary Catheter Time of Insertion: 23:00 Date Urinary Catheter Removed: 10/14/24 Time Urinary Catheter Discontinued: 05:30 Data 10/14/24 04:12 10/14/24 04:12 Micro: Microbiology 10/12/24 03:30 Urine Culture - Final Urine,Clean Catch 10/12/24 10:00 Gram Stain - Final Sputum - Endotracheal Tube Aspirate Sputum Culture - Preliminary A&P Assessment and plan (1) Acute hypoxic respiratory failure: (2) COPD exacerbation: (3) Pulmonary embolism: (4) HTN (hypertension): Qualifiers: Hypertension type: primary hypertension Qualified Code(s): I10 - Essential (primary) hypertension (5) Morbid obesity with BMI of 40.0-44.9, adult: (6) Atrial flutter: (7) Sepsis: (8) LBBB (left bundle branch block): (9) Hypothyroid: Qualifiers: Hypothyroidism type: postoperative Qualified Code(s): E89.0 - Postprocedural hypothyroidism (10) Eosinophilic asthma: Plan Acute hypoxic respiratory failure: Most likely in setting of COPD exacerbation and pulmonary embolism. PE diagnosed on a CTA done at an outside hospital. Cannot rule out underlying obstructive sleep apnea. Concerns for pneumonia. Extubated on 10/13. Oxygen supplementation keeping saturation over 88%. Concern for obstructive sleep apnea. Will try for overnight pulse oximetry otherwise patient will need to get a sleep study as an outpatient. Does have history of diastolic heart failure. Appreciate echocardiogram. Found to have EF 50% grade 1 diastolic dysfunction. IV Lasix 40 mg one-time. Strict input output charting, daily weights. Will restriction to less than 1500 cc. Follow-up blood culture and sputum culture. Negative MRSA and respiratory viral panel. Continue with IV Zosyn for now. Wean Solu-Medrol 40 mg every 12 hourly. Continue with Pulmicort twice daily. Patient tachycardic. Switch from DuoNeb to ipratropium and Xopenex every 6 hours. Switch from heparin drip to full dose Eliquis 10 mg twice daily. Will plan to transition to 5 mg twice daily as an outpatient after [address] chest for further evaluation. Sepsis: Present on admission. SIRS: Tachycardic, Febrile, Leukocytosis Source: Pneumonia End organ damage: Acute respiratory failure Patient received septic bolus as an outside hospital. Strict input charting, daily weights. A-fib with RVR: Currently normal sinus rhythm. Continue to monitor. Telemetry. Continues to have tachycardia. Increase dose of metoprolol to 50 mg twice daily. If has persistent A-fib or recurrent A-fib will discuss in detail with the family regarding possible need for anticoagulation for stroke prevention. LBBB: Patient does seem to have baseline LBBB. Had positive cardiac stress test in 2023. Appreciate cardiac angiogram from 2023. Hypertension: Goal blood pressure less than 140/90 mmhg. Blood pressure is elevated. Adding metoprolol as above. Take losartan 100 mg daily at home. Depending on the blood pressures will try to restart losartan. IV hydralazine 10 mg every 4 hours as needed for systolic of more than 160 mmHg. Low TSH: CT chest shows intrathoracic substernal thyroid. TSH on the lower side. Check free T3 and free T4, thyroid ultrasound. For now continue with home dose of levothyroxine. Type 2 diabetes mellitus: A1c of 6.5. Carb consistent diet. Insulin sliding scale AC and at bedtime. PT/OT. Transfer to [facility]. CODE STATUS: Patient's caregiver is a life partner. Not legally . Patient does not have a DPOA on file. For now full code. Will discuss further with patient's daughter over the phone. Carb consistent diet Protonix for PUD prophylaxis Full dose Eliquis was sufficient for DVT prophylaxis Tried calling patient's daughter Ms. Johnson over the phone. Not able to get in touch. Left a voice message. PDMP PDMP Reviewed: Not Reviewed Attestations 2 Medical Necessity Statement*: Requested hospitalization for management of acute hypoxic respiratory failure in setting of COPD exacerbation, new PE in a Patient with baseline LBBB, low TSH with hyperthyroidism, uncontrolled hypertension Diagnoses Acute hypoxic respiratory failure J96.01 COPD exacerbation J44.1 Pulmonary embolism I26.99 Primary hypertension I10 Hypertension type: primary hypertension Morbid obesity with BMI of 40.0-44.9, adult E66.01; Z68.41 Atrial flutter I48.92 Sepsis A41.9 LBBB (left bundle branch block) I44.7 Postoperative hypothyroidism E89.0 Hypothyroidism type: postoperative Eosinophilic asthma J82.83
[2024-10-14] MEDS: hyDRALAzine 20 mg/mL INJ 1 mL 10 MG IVP (14:34)
[2024-10-14 15:20] LABS: Blood Urea Nitrogen 34 mg/dL (8-23); Calcium 9.1 mg/dL (8.5-10.5); Carbon Dioxide 20 mmol/L (22-29); Chloride 102 mmol/L (98-107); Creatinine Clr Calc Pharmacy 102.4583; Glucose 182 mg/dL (65-115); Osmolality Calculated 296 mOsm/kg (285-295); Sodium 137 mmol/L (136-145)
[2024-10-14 15:21] LABS: Anion Gap 19.1 (5-19); Potassium 4.1 mmol/L (3.5-5.1)
[2024-10-14 15:41] LABS: Free T4 Free Thyroxine 1.52 ng/dL (0.82-1.77); Thyroid Stimulating Hormone 0.17 uIU/mL (0.27-4.20)
[2024-10-14] MEDS: metoprolol tartrate 25 mg Tablet 50 MG PO (17:43)
[2024-10-14 17:55] LABS: Glucose Point of Care 127 mg/dL (70-110)
[2024-10-14] MEDS: pantoprazole 40 mg SDV IVP (20:36)
[2024-10-14 21:08] LABS: Glucose Point of Care 164 mg/dL (70-110)
[2024-10-15] VITALS (14 sets, daily range): BP systolic 135–165; BP diastolic 61–89; PULSE 62–116; RESP 15–18; TEMP 36.4–37; O2SAT 90–98
[2024-10-15] MEDS: ipratropium 0.5 mg/2.5 mL Neb INHALATION ×4 (01:53→21:15)
[2024-10-15] MEDS: levalbuterol 0.63 mg/3 mL Neb INHALATION ×4 (01:53→21:16)
[2024-10-15] MEDS: hyDRALAzine 20 mg/mL INJ 1 mL 10 MG IVP (03:40)
[2024-10-15 05:28] LABS: Basophils # 0.1 10^3/uL (0.0-0.1); Basophils % 0.3 %; Eosinophils % 0.2 %; Hematocrit 38.5 % (37-53); Lymphocytes # 1.4 10^3/uL (0.8-4.8); Lymphocytes % 8.8 %; Mean Corpuscular HGB Conc 32.2 g/dL (30-55); Mean Corpuscular Hemoglobin 27.9 pg (27-33); Mean Corpuscular Volume 86.5 fl (82-101); Mean Platelet Volume 10.7 fL (7.4-10.4); Monocytes # 1.6 10^3/uL (0.2-0.9); Monocytes % 10.2 %; Neutrophils # 12.56 10^3/uL (1.8-7.7); Neutrophils % 78.3 %; Nucleated Red Blood Cells % 0 %; Platelet Count 217 10^3/cmm (157-399); Red Blood Count 4.45 10^6/uL (3.85-5.65); White Blood Count 16.06 10^3/uL (3.29-11.43)
[2024-10-15] MEDS: methylPREDNISolone sod succ 40 mg/mL INJ IVP (05:41)
[2024-10-15] MEDS: piperacillin-tazobactam 3.375 GM in sodium chloride 0.9% (plus) 50 ML IV ×3 (05:41→20:44)
[2024-10-15 05:53] LABS: Alanine Aminotransferase 29 U/L (0-41); Albumin Level 3.4 g/dL (3.5-5.2); Alkaline Phosphatase 62 U/L (40-130); Blood Urea Nitrogen 30 mg/dL (8-23); Calcium 8.9 mg/dL (8.5-10.5); Carbon Dioxide 25 mmol/L (22-29); Chloride 105 mmol/L (98-107); Creatinine Clr Calc Pharmacy 110.4407; Globulin 2.7 g/dL (1.3-4.6); Glomerular Filtration Rate 84.7 mL/min (90-130); Glucose 146 mg/dL (65-115); Osmolality Calculated 299 mOsm/kg (285-295); Sodium 140 mmol/L (136-145); Total Bilirubin 0.3 mg/dL (0.15-1.2); Total Protein 6.1 g/dL (6.6-8.7)
[2024-10-15 05:54] LABS: Anion Gap 14.3 (5-19); Aspartate Amino Transferase 22 U/L (0-40); Potassium 4.3 mmol/L (3.5-5.1)
[2024-10-15 06:02] LABS: Magnesium 2.3 mg/dL (1.7-2.3)
[2024-10-15 06:32] LABS: Glucose Point of Care 134 mg/dL (70-110)
[2024-10-15] MEDS: budesonide 0.5 mg/2 mL Neb INHALATION ×2 (08:36→21:15)
[2024-10-15] MEDS: levothyroxine 88 mcg Tablet PO (08:45)
[2024-10-15] MEDS: apixaban 5 mg Tablet 10 MG PO ×2 (08:45→20:44)
[2024-10-15] MEDS: aspirin 81 mg EC Tablet PO (08:45)
[2024-10-15] MEDS: metoprolol tartrate 25 mg Tablet 50 MG PO (08:46)
[2024-10-15 11:31] LABS: Glucose Point of Care 173 mg/dL (70-110)
[2024-10-15] MEDS: insulin lispro 100 unit/1 mL SUBCUT ×2 (11:44→20:53)
[2024-10-15] MEDS: dilTIAZem 30 mg Tablet PO ×3 (11:45→22:19)
[2024-10-15] MEDS: FUROsemide 10 mg/mL SDV 4mL 40 MG IVP (11:45)
--- NOTE | 2024-10-15 14:08 | P.PN_ITS ---
Subjective 2 Subjective: No acute events overnight. Patient has remained stable and afebrile. Seen by family members at bedside. Seen sitting up in chair today. States feeling better. Currently on room air. Blood pressure slightly elevated. Heart rate still pending occasionally. Vitals/I&O/Wt Last Vital Signs Temp 97.6 F 10/15/24 11:56 Pulse 88 10/15/24 11:56 Resp 16 10/15/24 11:56 BP 137/89 10/15/24 11:56 Pulse Ox 97 10/15/24 11:56 O2 Del Method Room Air 10/15/24 11:56 O2 Flow Rate 2 10/14/24 07:32 FiO2 35 10/13/24 11:16 10/14/24 10/15/24 10/15/24 22:59 06:59 14:59 Intake Total 290 / 1239.017 50 / 1289.017 530 / 530 Output Total 300 / 1900 375 / 2275 Balance -10 / -660.983 -325 / -985.983 530 / 530 Weight last 48 hrs Weight 122.152 kg Physical Exam 2 Narrative: General: AO x 3, no acute distress, sitting comfortably in bed, obese HEENT: PERRLA, pupils bilaterally equal and reactive Chest: Bilateral bronchial breath sounds with occasional rhonchi CVS: S1-S2 regular, no murmurs, no tachycardia, no gallops, no rubs Abdomen: Soft, nontender, no organomegaly, bowel sounds present Neuro: No focal deficit, moving all limbs, able x 3, no facial deformity Urinary Catheter Management: Cox Latex: Cath Placed During This Visit: yes, but has since been removed by the nurse Reason for Continuing Indwelling Catheter: Decision to DC Catheter Urinary Catheter Date of Insertion: 10/11/24 Urinary Catheter Time of Insertion: 23:00 Date Urinary Catheter Removed: 10/14/24 Time Urinary Catheter Discontinued: 05:30 Data 10/15/24 04:36 10/15/24 04:36 Micro: Microbiology 10/12/24 10:00 Gram Stain - Final Sputum - Endotracheal Tube Aspirate Sputum Culture - Final 10/12/24 03:30 Urine Culture - Final Urine,Clean Catch A&P Assessment and plan (1) Acute hypoxic respiratory failure: (2) COPD exacerbation: (3) Pulmonary embolism: (4) HTN (hypertension): Qualifiers: Hypertension type: primary hypertension Qualified Code(s): I10 - Essential (primary) hypertension (5) Morbid obesity with BMI of 40.0-44.9, adult: (6) Atrial flutter: (7) Sepsis: (8) LBBB (left bundle branch block): (9) Hypothyroid: Qualifiers: Hypothyroidism type: postoperative Qualified Code(s): E89.0 - Postprocedural hypothyroidism (10) Eosinophilic asthma: Plan Acute hypoxic respiratory failure: Most likely in setting of COPD exacerbation and pulmonary embolism. PE diagnosed on a CTA done at an outside hospital. Cannot rule out underlying obstructive sleep apnea. Concerns for pneumonia. Extubated on 10/13. Oxygen supplementation keeping saturation over 88%. Concern for obstructive sleep apnea. Will try for overnight pulse oximetry otherwise patient will need to get a sleep study as an outpatient. Does have history of diastolic heart failure. Appreciate echocardiogram. Found to have EF 50% grade 1 diastolic dysfunction. IV Lasix 40 mg one-time. Strict input output charting, daily weights. Will restriction to less than 1500 cc. Follow-up blood culture and sputum culture. Negative MRSA and respiratory viral panel. Continue with IV Zosyn for now. Wean Solu-Medrol 40 mg every 12 hourly. Continue with Pulmicort twice daily. Patient tachycardic. Switch from DuoNeb to ipratropium and Xopenex every 6 hours. Switch from heparin drip to full dose Eliquis 10 mg twice daily. Will plan to transition to 5 mg twice daily as an outpatient after [address] chest for further evaluation. Sepsis: Present on admission. SIRS: Tachycardic, Febrile, Leukocytosis Source: Pneumonia End organ damage: Acute respiratory failure Patient received septic bolus as an outside hospital. Strict input charting, daily weights. A-fib with RVR: Currently normal sinus rhythm. Continue to monitor. Telemetry. Continues to have tachycardia. Increase dose of metoprolol to 50 mg twice daily. If has persistent A-fib or recurrent A-fib will discuss in detail with the family regarding possible need for anticoagulation for stroke prevention. LBBB: Patient does seem to have baseline LBBB. Had positive cardiac stress test in 2023. Appreciate cardiac angiogram from 2023. Hypertension: Goal blood pressure less than 140/90 mmhg. Blood pressure is elevated. Adding metoprolol as above. Take losartan 100 mg daily at home. Depending on the blood pressures will try to restart losartan. IV hydralazine 10 mg every 4 hours as needed for systolic of more than 160 mmHg. Low TSH: CT chest shows intrathoracic substernal thyroid. TSH on the lower side. Check free T3 and free T4, thyroid ultrasound. For now continue with home dose of levothyroxine. Type 2 diabetes mellitus: A1c of 6.5. Carb consistent diet. Insulin sliding scale AC and at bedtime. PT/OT. Transfer to [facility]. CODE STATUS: Patient's caregiver is a life partner. Not legally . Patient does not have a DPOA on file. For now full code. Will discuss further with patient's daughter over the phone. Carb consistent diet Protonix for PUD prophylaxis Full dose Eliquis was sufficient for DVT prophylaxis Plan for the day: Wean Solu-Medrol 40 mg daily. Continue nebulization treatment. IV Lasix 40 mg one-time. Oxygen supplementation keeping saturation over 88%. Continue with current IV antibiotics. Follow-up blood culture and sputum culture. Will plan to finish of overall 7-day course of antibiotics. Continue with full dose Eliquis. Goal blood pressure less than 140/90 mmHg. Blood pressure is elevated. Patient still occasionally tachycardic. Does have baseline LBBB. Given LBBB, concern for diastolic dysfunction it would be important for patient's heart rate to be better controlled. Switch to Coreg 12.5 mg twice daily. Continue with Lasix. Start on Cardizem 30 mg Q6 hourly. Holding off on losartan for now. Patient would benefit from sleep study as an outpatient for high concerns of sleep apnea. Will request RT to see if possibly oxygen can be set up nocturnally. Appreciate thyroid panel. Appreciate thyroid ultrasound. Patient would need a nuclear scan of thyroid gland as an outpatient. Discussed with nuclear medicine team. Cannot get nuclear study done for at least 4 weeks from last contrast study. Patient will need to be off levothyroxine before the study. Discussed in detail with the patient. He verbalizes understanding. 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 PDMP PDMP Reviewed: Not Reviewed Attestations 2 Medical Necessity Statement*: Was further hospitalization for management of acute hypoxic respiratory failure in setting of PE, sleep apnea, uncontrolled hypertension for tachycardia while medications were adjusted. Diagnoses Acute hypoxic respiratory failure J96.01 COPD exacerbation J44.1 Pulmonary embolism I26.99 Primary hypertension I10 Hypertension type: primary hypertension Morbid obesity with BMI of 40.0-44.9, adult E66.01; Z68.41 Atrial flutter I48.92 Sepsis A41.9 LBBB (left bundle branch block) I44.7 Postoperative hypothyroidism E89.0 Hypothyroidism type: postoperative Eosinophilic asthma J82.83
[2024-10-15 16:06] LABS: Glucose Point of Care 109 mg/dL (70-110)
[2024-10-15] MEDS: carvedilol 12.5 mg Tablet PO (17:13)
[2024-10-15 20:39] LABS: Glucose Point of Care 154 mg/dL (70-110)
[2024-10-15] MEDS: pantoprazole 40 mg SDV IVP (20:44)
[2024-10-16] VITALS (8 sets, daily range): BP systolic 113–137; BP diastolic 66–80; PULSE 79–88; RESP 16–18; TEMP 36.4–36.8; O2SAT 89–96
[2024-10-16] MEDS: levalbuterol 0.63 mg/3 mL Neb INHALATION ×2 (02:41→07:19)
[2024-10-16] MEDS: ipratropium 0.5 mg/2.5 mL Neb INHALATION ×2 (02:41→07:19)
[2024-10-16] MEDS: dilTIAZem 30 mg Tablet PO ×2 (05:37→10:21)
[2024-10-16] MEDS: piperacillin-tazobactam 3.375 GM in sodium chloride 0.9% (plus) 50 ML IV (05:37)
[2024-10-16 06:23] LABS: Glucose Point of Care 96 mg/dL (70-110)
[2024-10-16] MEDS: budesonide 0.5 mg/2 mL Neb INHALATION (07:19)
[2024-10-16] MEDS: aspirin 81 mg EC Tablet PO (08:13)
[2024-10-16] MEDS: levothyroxine 88 mcg Tablet PO (08:13)
[2024-10-16] MEDS: apixaban 5 mg Tablet 10 MG PO (08:13)
[2024-10-16] MEDS: methylPREDNISolone sod succ 40 mg/mL INJ IVP (08:14)
[2024-10-16] MEDS: carvedilol 12.5 mg Tablet PO (08:14)
[2024-10-16 11:04] LABS: Glucose Point of Care 129 mg/dL (70-110)
--- NOTE | 2024-10-16 11:08 | P.DS_ITS ---
Discharge Providers Date of Admission: 10/11/24 20:09 Date of Discharge: October 16, 2024 Attending Provider at Admission: Ashlie Lloyd MD Attending Provider at Discharge: Veto Paulino MD Primary Care Provider: Sydnee Simons APRN Diagnoses at Discharge Discharge Diagnosis (1) Acute hypoxic respiratory failure: Status: Acute (2) COPD exacerbation: Status: Acute (3) Pulmonary embolism: Status: Acute (4) HTN (hypertension): Status: Acute Qualifiers: Hypertension type: primary hypertension Qualified Code(s): I10 - Ess ential (primary) hypertension (5) Morbid obesity with BMI of 40.0-44.9, adult: Status: Acute (6) Atrial flutter: Status: Acute (7) Sepsis: Status: Acute (8) LBBB (left bundle branch block): Status: Acute (9) Hypothyroid: Status: Acute Qualifiers: Hypothyroidism type: postoperative Qualified Code(s): E89.0 - Postprocedural hypothyroidism (10) Eosinophilic asthma: Status: Acute (11) Substernal thyroid goiter: Status: Acute Reason for Visit Reason for Visit: resp dis ICU 5 Brief History: History as per HPI: Surinder Rebolledo is a 64 year old male with a past medical history of CHF, COPD, hypertension, prediabetes, who is a transfer from [facility] for acute respiratory failure. Patient was at [facility] September 21, was intubated and transferred to [facility], due to concern for influenza, was eventually extubated, EMS was called due to complaints of shortness of breath on arrival to the to [facility] noted on pulse ox his O2 sats were in the 70s, he was placed on oxygen, on 4 L to 75%, patient was intubated due to acute respiratory failure, EKG showed atrial flutter 2-1 conduction, given 20 mg of Cardizem, he was found to have a PE on CTA, was started on heparin drip, currently patient is intubated, sedated on mechanical ventilation, when family is at bedside Hospital Course Hospital Course Patient was admitted to the hospital further evaluation management of hypoxic respiratory failure leading to mechanical ventilation in setting of COPD exacerbation, pneumonia, pulm embolism. He was continued on broad-spectrum antibiotics, nebulization treatment, anticoagulation with heparin drip. He responded well to the treatment of and was gradually extubated on 10/14. Echocardiogram was done which showed EF of 50%, grade 1 diastolic dysfunction. Patient was found to have a chronic LBBB. CT chest showed no further pneumonia. It did show enlarged substernal thyroid with concern for multinodular goiter. During hospitalization thyroid panel showed low TSH with a normal free T4. Given patient's history of thyroidectomy he underwent thyroid ultrasound which was concerning heterogeneous soft tissue within the thyroid bed with concerns for possible goiter. Nuclear medicine for thyroid study was ordered but could not be done as patient had contrast study within last 5 days and recommendations are to hold for 4 weeks. Home O2 evaluation was done prior to discharge. During hospitalization he was found to have type 2 diabetes mellitus for which metformin was added. He was found to have tachycardia along with elevated blood pressures. Given concerns for LBP and diastolic heart failure patient's heart rate was better controlled with Coreg and oral Cardizem. There is a high concern for sleep apnea. He has been advised to follow-up with PCP as an outpatient for sleep study. He did qualify for nocturnal oxygen. He is advised to follow-up with his outpatient visitor services technician for further thyroid workup. Physical Exam Narrative: General: AO x 3, no acute distress, sitting comfortably in bed, obese HEENT: PERRLA, pupils bilaterally equal and reactive Chest: Bilateral bronchial breath sounds with occasional rhonchi CVS: S1-S2 regular, no murmurs, no tachycardia, no gallops, no rubs Abdomen: Soft, nontender, no organomegaly, bowel sounds present Neuro: No focal deficit, moving all limbs, able x 3, no facial deformity Urinary Catheter Management: Cox Latex: Cath Placed During This Visit: yes, but has since been removed by the nurse Reason for Continuing Indwelling Catheter: Decision to DC Catheter Urinary Catheter Date of Insertion: 10/11/24 Urinary Catheter Time of Insertion: 23:00 Date Urinary Catheter Removed: 10/14/24 Time Urinary Catheter Discontinued: 05:30 Discharge Data Studies Completed and Pending Completed Studies During Hospitalization Category Date Time Status CT chest wo con [id number] Routine Cat Scan 10/14/24 09:50 Completed CXRP [XR chest 1V portable [id number]] Routine Exams 10/12/24 13:13 Completed XR chest 1V portable [id number] Stat Exams 10/11/24 20:14 Completed XR chest 1V portable [id number] Stat Exams 10/11/24 23:24 Completed XR chest 1V portable [id number] Stat Exams 10/13/24 09:42 [place] [id number] Routine Ultrasound 10/12/24 21:20 Completed CV. echo wo/w contrast [id number] Routine Ultrasound 10/12/24 21:20 Completed US thyroid [id number] Routine Ultrasound 10/14/24 13:04 Completed Pending at discharge Category Date Time Status Blood Culture Routine Lab 10/11/24 20:40 Results Radiology Impressions Chest X-Ray 10/13/24 09:42 Impression: 1. Endotracheal tube and oral gastric tube remain in the same position. 2. Right PICC line may end in right subclavian vein. 3. Slight increase in bilateral lower lobe opacities. Chest CT 10/14/24 09:50 IMPRESSION: 1. No pulmonary mass or pneumonia. Lungs much better aerated as compared to 10/11/2024. 2. Mild cardiomegaly. 3. Right-sided PICC line. 4. Enlarged substernal thyroid, likely multinodular goiter. RIGHT thyroid calcifications. 5. Indeterminate high RIGHT paratracheal 15 mm lymph node. Stable since 02/05/2015. 6. Small hiatal hernia. Thyroid Ultrasound 10/14/24 13:04 IMPRESSION: 1. Patient did provide a history of a prior complete thyroidectomy. 2. Heterogeneous soft tissue within the thyroid bed has a most typical appearance for thyromegaly secondary to a goiter. It is possible to have recurrence of a thyroid goiter. Recurrence also may be secondary to subtotal thyroidectomy. To confirm this is thyroid tissue nuclear medicine thyroid uptake can be performed. Within the significant recurrence since thyroidectomy p ossibility of thyroid neoplasm should also be considered. There is no discrete mass or nodule. Echocardiogram CONCLUSIONS Diffuse hypokinesis of the septum with left ventricular ejection fraction of 50%.Grade I/IV diastolic dysfunction (abnormal relaxation filling pattern), normal to mildly elevated filling pressures. Study is a suboptimal quality because of the poor apical windows. (Echo contrast - Optison was used to delineate the endocardium and to estimate the LV ejection fraction). Thickened aortic valve. The right-sided structures could not be visualized well There is no pericardial effusion. Dr Lupe Barba MD [facility] (Electronically Signed) Final Date: 12 October 2024 Microbiology 10/12/24 10:00 Sputum - Endotracheal Tube Aspirate Gram Stain - Final 10/12/24 10:00 Sputum - Endotracheal Tube Aspirate Sputum Culture - Final 10/12/24 03:30 Urine,Clean Catch Urine Culture - Final 10/11/24 20:40 Blood Blood Culture - Preliminary NEGATIVE TO DATE 10/11/24 20:45 Blood Blood Culture - Preliminary NEGATIVE TO DATE Laboratory Results WBC 16.06 10^3/uL (3.29-11.43) H 10/15/24 04:36 RBC 4.45 10^6/uL (3.85-5.65) 10/15/24 04:36 Hgb 12.40 g/dL (11.27-16.99) 10/15/24 04:36 Hct 38.5 % (37-53) 10/15/24 04:36 MCV 86.5 fl (82-101) 10/15/24 04:36 MCH 27.9 pg (27-33) 10/15/24 04:36 MCHC 32.2 g/dL (30-55) 10/15/24 04:36 RDW 16.0 % (12.1-15.1) H 10/15/24 04:36 Plt Count 217 10^3/cmm (157-399) 10/15/24 04:36 MPV 10.7 fL (7.4-10.4) H 10/15/24 04:36 Neut % (Auto) 78.3 % 10/15/24 04:36 Lymph % (Auto) 8.8 % 10/15/24 04:36 [place] % (Auto) 10.2 % 10/15/24 04:36 Eos % (Auto) 0.2 % 10/15/24 04:36 Baso % (Auto) 0.3 % 10/15/24 04:36 Neut # (Auto) 12.56 10^3/uL (1.8-7.7) H 10/15/24 04:36 Lymph # (Auto) 1.4 10^3/uL (0.8-4.8) 10/15/24 04:36 [place] # (Auto) 1.6 10^3/uL (0.2-0.9) H 10/15/24 04:36 Eos # (Auto) 0.0 10^3/uL (0.0-0.8) 10/15/24 04:36 Baso # (Auto) 0.1 10^3/uL (0.0-0.1) 10/15/24 04:36 Nucleated RBC % (auto) 0 % 10/15/24 04:36 Nucleated RBCs # 0.0 /100WBC 10/15/24 04:36 APTT 23.9 SECONDS (23.9-36.7) D 10/14/24 08:20 Specimen Type Arterial 10/13/24 06:03 Sample Site Brachial, right 10/13/24 06:03 ABG pH 7.37 (7.35-7.45) 10/13/24 06:03 ABG pCO2 44.6 mmHg (35-45) 10/13/24 06:03 ABG pO2 112.0 mmHg (80.0-100.0) H 10/13/24 06:03 ABG PO2/FiO2 Ratio 280 10/13/24 06:03 ABG HCO3 26.0 mmol/L (22-26) 10/13/24 06:03 ABG O2 Saturation 98.7 10/13/24 06:03 ABG Base Excess 0.4 mmol/L (-2.0-2.0) 10/13/24 06:03 Myron Test N/a 10/13/24 06:03 A-a O2 Gradient 15.1 mmHg (5-10) H 10/13/24 06:03 Hematocrit 37.1 % (42-52) L 10/13/24 06:03 Hgb O2 Saturation 96.7 % (95-100) 10/13/24 06:03 Carboxyhemoglobin 0.8 %THgb (0.4-20.1) 10/13/24 06:03 Methemoglobin 1.3 % (0.4-1.5) 10/13/24 06:03 Total Hemoglobin 12.1 g/dL (14-18) L 10/13/24 06:03 Sodium 141.0 mmol/L (131-143) 10/13/24 06:03 Potassium 3.8 mmol/L (3.5-5.0) 10/13/24 06:03 Glucose 152.0 mg/dL (70-115) H 10/13/24 06:03 Ionized Calcium 1.2 mmol/L (1.1-1.4) 10/13/24 06:03 O2 Delivery Device Vent 10/13/24 06:03 FiO2 40.0 % 10/13/24 06:03 Tidal Volume 0.55 10/13/24 06:03 PEEP 10.0 cmH20 10/13/24 06:03 Group Fitness Assistant Department Head ID Ramez 10/13/24 06:03 Sodium 140 mmol/L (136-145) 10/15/24 04:36 Potassium 4.3 mmol/L (3.5-5.1) 10/15/24 04:36 Chloride 105 mmol/L (98-107) 10/15/24 04:36 Carbon Dioxide 25 mmol/L (22-29) 10/15/24 04:36 Anion Gap 14.3 (5-19) 10/15/24 04:36 BUN 30 mg/dL (8-23) H 10/15/24 04:36 Creatinine 0.9 mg/dL (0.7-1.2) 10/15/24 04:36 GFR Calculation 84.7 mL/min (90-130) L 10/15/24 04:36 Glucose 146 mg/dL (65-115) H 10/15/24 04:36 POC Glucose 129 mg/dL (70-110) H 10/16/24 11:01 Estimat Average Glucose 140 10/11/24 20:45 Hemoglobin A1c 6.5 % (4.0-6.0) H 10/11/24 20:45 Calculated Osmolality 299 mOsm/kg (285-295) H 10/15/24 04:36 Lactic Acid 1.9 mmol/L (0.5-2.2) 10/11/24 20:45 Calcium 8.9 mg/dL (8.5-10.5) 10/15/24 04:36 Phosphorus 2.8 mg/dL (2.5-4.5) 10/12/24 03:32 Magnesium 2.3 mg/dL (1.7-2.3) 10/15/24 04:36 Iron 27 ug/dL (59-158) L 10/12/24 03:32 TIBC 218 mcg/dl 10/12/24 03:32 % Saturation 12.3 % (20-50) L 10/12/24 03:32 Unsat Iron Binding 191 ug/dL (112-347) 10/12/24 03:32 Total Bilirubin 0.3 mg/dL (0.15-1.2) 10/15/24 04:36 AST 22 U/L (0-40) 10/15/24 04:36 ALT 29 U/L (0-41) 10/15/24 04:36 Alkaline Phosphatase 62 U/L (40-130) 10/15/24 04:36 Creatine Kinase 83 U/L (39-308) 10/12/24 03:32 Troponin T Baseline 42 ng/L (0-15) H 10/11/24 20:45 Troponin T 120 Minute 41.12 ng/L (0-15) H 10/11/24 22:37 Delta Troponin T -0.88 ABS# (0-10) L 10/11/24 22:37 Troponin T Hi Sens 6Hr 31.62 ng/L (0-15) H 10/12/24 03:32 Troponin T Hi Sens 6Hr Delta -10.38 ng/L (0-12) L 10/12/24 03:32 C-Reactive Protein 14.0 mg/L (0.0-4.9) H 10/11/24 20:45 NT-Pro-B Natriuret Pep 386 pg/mL (0-125) H 10/12/24 03:32 Total Protein 6.1 g/dL (6.6-8.7) L 10/15/24 04:36 Albumin 3.4 g/dL (3.5-5.2) L 10/15/24 04:36 Globulin 2.7 g/dL (1.3-4.6) 10/15/24 04:36 Triglycerides 67 mg/dL (0-150) 10/11/24 20:45 Cholesterol 181 mg/dL (0-200) 10/11/24 20:45 LDL Cholesterol, Calc 105 mg/dL (50-129) 10/11/24 20:45 HDL Cholesterol 63 mg/dL (60-100) 10/11/24 20:45 LDL/HDL Ratio 1.67 RATIO (0.00-3.22) 10/11/24 20:45 Cholesterol/HDL Ratio 2.87 mg/dL (1.0-5.00) 10/11/24 20:45 Folate 8.8 ng/mL (4.5-32.2) 10/13/24 04:16 Procalcitonin 0.28 ng/mL (0-0.5) 10/12/24 03:32 TSH 0.17 uIU/mL (0.27-4.20) L 10/14/24 14:57 Free T4 1.52 ng/dL (0.82-1.77) 10/14/24 14:57 Urine Color Yellow (Yellow) 10/12/24 03:30 Urine Appearance Clear (CLEAR) 10/12/24 03:30 Urine pH 5.0 (5-7) 10/12/24 03:30 Ur Specific [place] 1.048 (1.005-1.030) H 10/12/24 03:30 Urine Protein 1+ (Negative) A 10/12/24 03:30 Urine Glucose (UA) Negative (Normal) 10/12/24 03:30 Urine Ketones Trace (Negative) 10/12/24 03:30 Urine Blood 2+ (Negative) A 10/12/24 03:30 Urine Nitrate Negative (Negative) 10/12/24 03:30 Urine Bilirubin Negative (Negative) 10/12/24 03:30 Urine Urobilinogen 0.2 mg/dL (Negative) 10/12/24 03:30 Ur Leukocyte Esterase Negative (Negative) 10/12/24 03:30 Urine RBC 51-100 /hpf (0-2) H 10/12/24 03:30 Urine WBC 0-5 /hpf (0-5) 10/12/24 03:30 Ur Squamous Epith Cells 0-5 /hpf (0-5) 10/12/24 03:30 Amorphous Sediment Not Reportable 10/12/24 03:30 Urine Bacteria None seen /hpf (NONE) 10/12/24 03:30 Hyaline Casts 17.77 /lpf 10/12/24 03:30 Nasal MRSA (PCR) Not detected (Negative) 10/12/24 11:05 Adenovirus (PCR) Not detected (NOT DETECT) 10/12/24 10:56 C. pneumoniae DNA (PCR) Not detected (NOT DETECT) 10/12/24 10:56 Coronavirus 229E (PCR) Not detected (NOT DETECT) 10/12/24 10:56 Human Metapneumovir PCR Not detected (NOT DETECT) 10/12/24 10:56 Influenza A (H1) PCR Not detected (NOT DETECT) 10/12/24 10:56 Influ A (H1/09) PCR Not detected (NOT DETECT) 10/12/24 10:56 Influenza A (H3) PCR Not detected (NOT DETECT) 10/12/24 10:56 Influenza Type A (PCR) Not detected (NOT DETECT) 10/12/24 10:56 Influenza Type B (PCR) Not detected (NOT DETECT) 10/12/24 10:56 M. pneumoniae (PCR) Not detected (NOT DETECT) 10/12/24 10:56 Parainfluenza 1 (PCR) Not detected (NOT DETECT) 10/12/24 10:56 Parainfluenza 2 (PCR) Not detected (NOT DETECT) 10/12/24 10:56 Parainfluenza 3 (PCR) Not detected (NOT DETECT) 10/12/24 10:56 Parainfluenza 4 (PCR) Not detected (NOT DETECT) 10/12/24 10:56 RSV Type A (PCR) Not detected (NOT DETECT) 10/12/24 10:56 RSV Type B (PCR) Not detected (NOT DETECT) 10/12/24 10:56 Entero/Rhino (PCR) Not detected (NOT DETECT) 10/12/24 10:56 SARS-CoV-2 (PCR) Not detected (NOT DETECT) 10/12/24 10:56 Vitals Last Vital Signs Temp 98.0 F 10/16/24 07:22 Pulse 88 10/16/24 07:22 Resp 18 10/16/24 07:22 BP 133/68 10/16/24 07:22 Pulse Ox 92 10/16/24 07:22 O2 Del Method Room Air 10/16/24 07:22 O2 Flow Rate 2 10/16/24 02:41 FiO2 35 10/13/24 11:16 Discharge Plan Discharge Patient Disposition: Home Condition: Stable Prescriptions: New diltiazem HCl [Cardizem CD] 120 mg capsule,extended release 24hr 120 mg PO Q24H Qty: 30 0RF Eliquis DVT-PE Treat 30D Start 5 mg (74 tabs) tablets,dose pack See Rx Instructions .ROUTE .COMPLEX Qty: 74 0RF Rx Instructions: orally per package directions prednisone 10 mg tablet See Taper PO DIRECTED Qty: 42 0RF Taper: predniSONE 60-10 60 mg Daily for 2 Days and 0 Hour 50 mg Daily for 2 Days and 0 Hour 40 mg Daily for 2 Days and 0 Hour 30 mg Daily for 2 Days and 0 Hour 20 mg Daily for 2 Days and 0 Hour 10 mg Daily for 2 Days and 0 Hour Rx Instructions: see taper instructions levofloxacin 750 mg tablet 750 mg PO Q24H 3 Days Qty: 3 0RF amoxicillin-pot clavulanate 875-125 mg tablet 1 tab PO BID Qty: 6 0RF tiotropium bromide [Spiriva with HandiHaler] 18 mcg capsule, w/inhalation device 1 cap inhalation DAILY Qty: 60 0RF Rx Instructions: puncture 1 cap using device; one dose = 2 inhalations metformin 1,000 mg tablet 1,000 mg PO BIDWMEAL Qty: 60 0RF Continued testosterone 20.25 mg/1.25 gram (1.62 %) gel in metered-dose pump 2 pump topical DAILY Rx Instructions: apply 1 pump amount over max area of EACH upper arm and shoulder Jardiance 10 mg tablet 10 mg PO DAILY Qty: 90 0RF ipratropium-albuterol 0.5 mg-3 mg(2.5 mg base)/3 mL solution for nebulization 3 ml inhalation QID PRN (Reason: wheezing) Qty: 90 0RF albuterol sulfate [Ventolin HFA] 90 mcg/actuation HFA aerosol inhaler 2 puff inhalation Q6H PRN (Reason: shortness of breath or wheezing) Qty: 6.7 0RF aspirin 81 mg Tablet,Delayed Release (Dr/Ec) 81 mg PO DAILY albuterol sulfate 2.5 mg /3 mL (0.083 %) solution for nebulization 2.5 mg inhalation Q4H PRN (Reason: shortness of breath or wheezing) Qty: 90 0RF guaifenesin [Mucinex] 1,200 mg Tablet Extended Release 12hr 1,200 mg PO Q12H Primatene 12.5 mg Tablet 12.5 mg PO Q4H PRN (Reason: Shortness Of Breath) furosemide 40 mg tablet 40 mg PO DAILY benzonatate 100 mg capsule 100 mg PO TID PRN (Reason: Cough) pantoprazole 40 mg tablet,delayed release (DR/EC) 40 mg PO DAILY tadalafil 5 mg tablet 5 mg PO DAILY levothyroxine 88 mcg tablet 88 mcg PO DAILY Discontinued metoprolol tartrate 25 mg tablet 25 mg PO BID 30 Days Qty: 60 5RF losartan 100 mg tablet 100 mg PO DAILY doxycycline hyclate 100 mg tablet 100 mg PO BID Discharge Orders: Discharge Order (Routine); Ordered 10/16/24 Ordered By: Veto Paulino Referrals: Sydnee Siomns APRN [Primary Care Provider] - 7-10 days (Patient needs a sleep study) Marcin Garcia MD [Physician] - 1 month Discharge Diet: Cardiac and Diabetic Discharge Activity: Resume usual activity and Increase activity as tolerated Patient Instructions: Diltiazem (By mouth) (Cardizem, Cardizem CD, Cardizem LA, Cardizem SR), Prednisone (By mouth) (Prednisone Intensol, Prednicot, Deltasone, Jeri), Amoxicillin/Clavulanate Potassium (By mouth) (Augmentin, Augmentin..., Metformin (By mouth) (Glucophage, Glucophage XR, Fortamet,..., Levofloxacin (By mouth) (Levaquin, Levaquin Leva-yoandy), Tiotropium (By breathing) (Spiriva, Spiriva Respimat), Apixaban (By mouth) (Eliquis), Atrial Flutter (DC), Pulmonary Embolism (DC), COPD (Chronic Obstructive Pulmonary Disease) (DC), Acute Respiratory Failure (ED), COPD Stoplight, Opioid Safety Activity Restrictions/Additional Instructions: Please follow-up with your primary care provider within next 1 week. You should have a sleep study with your primary care provider at the earliest with concerns for sleep apnea. Please check your blood pressure daily at home maintain blood pressure diary. Goal blood pressure is between 100-140 systolics. Take Coreg 12.5 mg twice daily along with Cardizem 120 mg every morning. Metformin 1000 mg twice daily has been added to your medication list for diabetes. Continue taking all your medications as before. Restrict fluid intake to less than 1500 cc, salt intake to less than 2 g daily. Advised to check his weight daily at home. Is advised that weight today would be the dry weight and if body weight increases by around 5 pounds, patient is to take an extra dose of Lasix daily till body weight comes down to weight today. If not able to come down to dry body weight in 1 week, then is to call cardiology office for further recommendations. Patient was counseled in detail to take medications regularly as prescribed. You should follow-up with endocrinology office at the earliest for further evaluation and management of thyroid enlargement post thyroidectomy and intrathoracic thyroid gland Discharge Attestations Time Spent in Discharge Care*: greater than 30 min Specific Discharge Activities: educating patient, discussing with pcp/other providers, discussing with classification case manager/social workers/dc planners, documenting/other paperwork and evaluating patient/reviewing data Status at Discharge: Cognitive status at discharge: cognitively intact , Behavioral status at discharge: cooperative , Functional status at discharge: independent ambulation , Overall status at discharge: patient is back to baseline Quality Metrics Clinical Quality Measures [ No reported AMI, CVA or VTE this stay] Coding Level of Care Code 23529 Total time (in minutes) for Discharge: 70 Diagnoses Acute hypoxic respiratory failure J96.01 COPD exacerbation J44.1 Pulmonary embolism I26.99 Primary hypertension I10 Hypertension type: primary hypertension Morbid obesity with BMI of 40.0-44.9, adult E66.01; Z68.41 Atrial flutter I48.92 Sepsis A41.9 LBBB (left bundle branch block) I44.7 Postoperative hypothyroidism E89.0 Hypothyroidism type: postoperative Eosinophilic asthma J82.83 Substernal thyroid goiter E04.9
== END 2024-10-16 12:49 | disposition home or self-care (01) | DRG 871 ==
LOC: ICU 10-14 12:17 → MEDSURG 10-14 19:43
PROVIDERS: Family Medicine; Admitting Provider Student in an Organized Health Care Education/Training Program; PCP Family Medicine; Visit Provider Student in an Organized Health Care Education/Training Program
DX: A41.9 Sepsis, unspecified organism (principal); I26.99 Other pulmonary embolism without acute cor pulmonale; J96.01 Acute respiratory failure with hypoxia; J18.9 Pneumonia, unspecified organism; I48.92 Unspecified atrial flutter; J44.1 Chronic obstructive pulmonary disease with (acute) exacerbation; Z68.41 Body mass index [BMI] 40.0-44.9, adult; J44.0 Chronic obstructive pulmonary disease with (acute) lower respiratory infection; J82.83 Eosinophilic asthma; I50.32 Chronic diastolic (congestive) heart failure; J44.9 Chronic obstructive pulmonary disease, unspecified; I11.0 Hypertensive heart disease with heart failure; Z79.890 Hormone replacement therapy; Z79.899 Other long term (current) drug therapy; Z79.82 Long term (current) use of aspirin; M10.9 Gout, unspecified; E66.01 Morbid (severe) obesity due to excess calories; E11.9 Type 2 diabetes mellitus without complications; E89.0 Postprocedural hypothyroidism; I44.7 Left bundle-branch block, unspecified; E04.8 Other specified nontoxic goiter
CPT/HCPCS: 36415; 36416; 36573; 36592; 36600; 51702; 71045; 71250; 76536; 80048; 80051; 80053; 80061; 81001; 82330; 82550; 82746; 82803; 82805; 82962; 83036; 83540; 83550; 83605; 83735; 83880; 84100; 84145; 84439; 84443; 84484; 85025; 85730; 86140; 87040; 87070; 87086; 87205; 87486; 87581; 87633; 92507; 92523; 92610; 93005; 93306; 93970; 94002; 94003; 94640; 94760; 94762; 94799; 96372; 96376; 97110; 97116; 97161; C1751; C8929; J0360; J1644; J1815; J1940; J2250; J2470; J2543; J2919; J3010; J3372; J7614; J7626; J7644; J9999

== ENCOUNTER → 2024-11-10 10:11 | Outpatient (BNVA) | payer MEDICARE, SELFPAY | PROVIDERS: Visit Provider Internal Medicine | DX: R79.89 Other specified abnormal findings of blood chemistry (principal); E55.9 Vitamin D deficiency, unspecified; E34.9 Endocrine disorder, unspecified; E89.0 Postprocedural hypothyroidism | CPT/HCPCS: 99214 ==

== ENCOUNTER → 2024-12-07 13:29 | Outpatient (BNVA) | payer MEDICARE, SELFPAY | PROVIDERS: PCP Family Medicine; Visit Provider Internal Medicine Cardiovascular Disease | DX: I25.10 Atherosclerotic heart disease of native coronary artery without angina pectoris (principal); I48.92 Unspecified atrial flutter; Z79.01 Long term (current) use of anticoagulants; Z79.82 Long term (current) use of aspirin; I10 Essential (primary) hypertension; R73.03 Prediabetes; R73.9 Hyperglycemia, unspecified; Z99.81 Dependence on supplemental oxygen | CPT/HCPCS: 99214 ==

== ENCOUNTER 2024-12-22 08:57 | Outpatient (CLI) | payer MEDICARE, SELFPAY ==
--- NOTE | 2024-12-22 10:00 | US_ITS ---
WS: [id number] ULTRASOUND THYROID FNA CLINICAL INFORMATION: see below TECHNIQUE: Ultrasound-guided FNA FINDINGS: The procedure including risks, benefits, and complications were discussed with the patient who agreed to proceed. Timeout was performed. Using sterile technique patient was prepped and draped in usual sterile fashion. After 1% lidocaine, using ultrasound guidance, a 25-gauge needle was advanced into the RIGHT thyroid nodule. 5 passes were made. Pathology was present for slide preparation. No immediate complications. Patient remained in the ultrasound suite 10 minutes postprocedure with intermittent ultrasound to ensure no hematoma. No hematoma 10 minutes postprocedure. US/US biopsy/FNA thyroid [id number] IMPRESSION: Uncomplicated ultrasound-guided thyroid FNA. Cytology is pending.
== END 2024-12-22 08:58 | disposition home or self-care (01) ==
PROVIDERS: PCP Family Medicine; Visit Provider Internal Medicine
DX: R79.89 Other specified abnormal findings of blood chemistry (principal); E55.9 Vitamin D deficiency, unspecified; E34.9 Endocrine disorder, unspecified; E89.0 Postprocedural hypothyroidism; E04.1 Nontoxic single thyroid nodule
CPT/HCPCS: 10005; 88173

== ENCOUNTER → 2025-02-09 08:53 | Outpatient (BNVA) | payer MEDICARE, SELFPAY | PROVIDERS: PCP Family Medicine; Visit Provider Internal Medicine | DX: E89.0 Postprocedural hypothyroidism (principal); R79.89 Other specified abnormal findings of blood chemistry; E55.9 Vitamin D deficiency, unspecified; E04.9 Nontoxic goiter, unspecified | CPT/HCPCS: 36415; 82306; 82310; 83970; 84439; 84443; 99214 ==

== ENCOUNTER → 2025-06-08 09:32 | Outpatient (BNVA) | payer MEDICARE, SELFPAY | PROVIDERS: PCP Family Medicine; Visit Provider Nurse Practitioner Family | DX: I11.0 Hypertensive heart disease with heart failure (principal); I50.20 Unspecified systolic (congestive) heart failure; I25.10 Atherosclerotic heart disease of native coronary artery without angina pectoris; I48.92 Unspecified atrial flutter; I49.8 Other specified cardiac arrhythmias; R53.83 Other fatigue; Z79.01 Long term (current) use of anticoagulants | CPT/HCPCS: 99214 ==